=== PATIENT | male | born 1935 | race Caucasian/White ===

== ENCOUNTER 2022-03-07 09:58 | Outpatient (CLI) | payer MEDICARE, SELFPAY ==
--- NOTE | 2022-03-07 10:16 | US_ITS ---
WS: [id number] RENAL ULTRASOUND HISTORY: UNSPECIFIED HYDRONEPHROSIS BILATERAL COMPARISON: None available. TECHNIQUE: 2-D and color Doppler imaging of the kidney submitted. Right kidney: 10.5 cm x 5.2 cm x 5.1 cm. Normal echogenicity with no hydronephrosis or mass. Left kidney: 9.6 cm x 5.3 cm x 4.9 cm. Normal size RIGHT kidney. Cortical cyst from the lower pole measures 2.1 x 2.7 x 2.7 cm. No solid mas s. No obstruction. Aorta: Normal. Urinary Bladder: Partially distended bladder. US/US renal BI* [id number] IMPRESSION: 1. No solid renal mass or obstruction. 2. Simple cyst lower pole LEFT kidney measures 2.1 x 2.7 x 2.7 cm.
== END 2022-03-07 09:59 | disposition home or self-care (01) ==
PROVIDERS: PCP Family Medicine; Visit Provider Family Medicine
DX: N13.30 Unspecified hydronephrosis (principal); N28.1 Cyst of kidney, acquired
CPT/HCPCS: 76770

== ENCOUNTER 2023-04-25 23:55 | Emergency (ER) | payer MEDICARE, SELFPAY ==
[2023-04-25 23:57] VITALS: BP 141/96; PULSE 110; RESP 18; TEMP 36.7; O2SAT 97; BMI 23.8
--- NOTE | 2023-04-26 00:02 | ED_ITS ---
HPI - Arrhythmia/Palpitations General: Chief Complaint: Chest Pain Stated Complaint: PALPITATIONS Time Seen by Provider: 04/26/23 00:02 History of Present Illness: Mr. Villalpando is an 88-year-old gentleman presenting to the emergency department due to chest discomfort and palpitations. He notes substernal chest pain without significant radiation. He felt palpitations which were uncomfortable. Typically the patient has a low heart rate and is not in atrial fibrillation. Overall course of symptoms has been improved. No other specific changes in health, exacerbating, or alleviating factors identified. Onset (ago): hour(s) Duration: intermittent Arrhythmia history: atrial fibrillation Associated symptoms: Reports other Review of Systems General: Reports: 10 or more systems reviewed and unremarkable except in HPI and below PFSH ED PFSH: Medical History (Updated 05/08/23 @ 11:02 by Dario Dillard MD) No significant past medical history Surgical History (Updated 05/08/23 @ 11:02 by Dario Dillard MD) No significant past surgical history Physical Exam Const: COMMON NORMALS: alert GENERAL APPEARANCE: cooperative and well developed HENMT: COMMON NORMALS: normocephalic and atraumatic HEAD & SCALP: normocephalic and atraumatic Eye: COMMON NORMALS: conjunctivae normal CONJUNCTIVA: Yes conjunctivae normal SCLERA: sclerae normal Neck/C-Spine: COMMON NORMALS: supple GENERAL: Yes trachea midline Resp: COMMON NORMALS: normal respiratory effort EFFORT & INSPECTION: Yes able to speak in complete sentences Cardio: RATE: tachycardic RHYTHM: abnormal rhythm irregularly irregular GI: COMMON NORMALS: Soft to palpation PALPATION: Yes Soft to palpation and No Tenderness to palpation present (GI) Extremity: GENERAL: Yes normal exam except as noted and No edema Neuro: COMMON NORMALS: moves all extremities SENSORIUM/ORIENTATION: Yes alert and No Orientation impaired Psych: COMMON NORMALS: mental status grossly normal and Normal thought process present THOUGHT PROCESS: Normal thought process present Course Vital Signs: Vital signs: Vital Signs Temperature 98.0 F 04/25/23 23:57 Pulse Rate 47 L 04/26/23 04:00 Respiratory Rate 16 04/26/23 04:00 Blood Pressure 160/74 04/26/23 04:00 Pulse Oximetry 96 04/26/23 04:00 Oxygen Delivery Me thod Room Air 04/25/23 23:57 MDM - Arrhythmia/Palpitations Medical Decision Making 88-year-old gentleman with intermittent history of unclear arrhythmia presented to the emergency department due to chest discomfort and palpitations. Exam as above. Nontoxic. EKG demonstrates atrial fibrillation with rapid ventricular response. No STEMI. Labs with no leukocytosis, macrocytic anemia, thrombocytopenia of uncertain etiology. Metabolic panel with mildly elevated creatinine though no baseline comparison. Elevated 2-hour delta compared to prior and intermediate range of the likely from demand ischemia. No UTI Chest x-ray demonstrates abnormalities consistent with interstitial fibrosis. No pneumothorax. Regarding questionable infiltrate patient has not had any respiratory symptoms or pneumonialike symptoms. Potassium administered for optimization of electrolytes for arrhythmia prevention and metoprolol had been ordered however prior to this patient had spontaneous conversion. Repeat EKG demonstrates sinus bradycardia with normal axis and intervals, no STEMI. Patient likely had transient episode of atrial fibrillation with RVR which explain symptoms. I discussed disposition options. Patient prefers outpatient management. I will refer for follow-up and additional monitoring. Given bradycardia at baseline I do not feel that medication change at this time would be beneficial. The results of ED evaluation were discussed with the patient including pr escriptions and/or symptomatic cares (if applicable) including appropriate and responsible use, followup plan, and return precautions. The patient verbalized understanding and felt safe for discharge. Medical Records I reviewed the patient's medical records. Lab Data I reviewed the patient's lab results. 04/26/23 00:53 04/26/23 00:53 Radiology Impressions Chest X-Ray 04/26/23 00:03 IMPRESSION: Basal predominant subpleural reticulation compatible with pulmonary fibrosis. Asymmetric left basal opacities suspected to represent asymmetric pulmonary fibrosis although superimposed infectious/inflammatory process possible. Laboratory Results WBC 4.5 10^3/uL (4.0-10.0) 04/26/23 00:53 RBC 3.33 10^6/uL (4.1-5.3) L 04/26/23 00:53 Hgb 10.2 g/dL (11.7-16.6) L 04/26/23 00:53 Hct 32.9 % (42.0-52.0) L 04/26/23 00:53 MCV 98.8 fl (80-94) H 04/26/23 00:53 MCH 30.6 pg (28.0-34.0) 04/26/23 00:53 MCHC 31.0 g/dL (30.0-36.0) 04/26/23 00:53 RDW 13.2 % (12.1-15.1) 04/26/23 00:53 Plt Count 96 10^3/cmm (130-400) L 04/26/23 00:53 MPV 10.9 fL (7.4-10.4) H 04/26/23 00:53 Neut % (Auto) 56.6 % 04/26/23 00:53 Lymph % (Auto) 28.2 % 04/26/23 00:53 [place] % (Auto) 11.0 % 04/26/23 00:53 Eos % (Auto) 3.8 % 04/26/23 00:53 Baso % (Auto) 0.2 % 04/26/23 00:53 Neut # (Auto) 2.53 10^3/uL (1.8-7.7) 04/26/23 00:53 Lymph # (Auto) 1.3 10^3/uL (0.8-4.8) 04/26/23 00:53 [place] # (Auto) 0.5 10^3/uL (0.2-0.9) 04/26/23 00:53 Eos # (Auto) 0.2 10^3/uL (0.0-0.8) 04/26/23 00:53 Baso # (Auto) 0.0 10^3/uL (0.0-0.1) 04/26/23 00:53 Nucleated RBC % (auto) 0 % 04/26/23 00:53 Nucleated RBCs # 0.0 /100WBC 04/26/23 00:53 Sodium 141 mmol/L (136-145) 04/26/23 00:53 Potassium 3.6 mmol/L (3.5-5.1) 04/26/23 00:53 Chloride 108 mmol/L (98-107) H 04/26/23 00:53 Carbon Dioxide 24 mmol/L (22-29) 04/26/23 00:53 Anion Gap 12.6 (5-19) 04/26/23 00:53 BUN 29 mg/dL (8-23) H 04/26/23 00:53 Creatinine 1.5 mg/dL (0.7-1.2) H 04/26/23 00:53 GFR Calculation Not Reportable 04/26/23 00:53 Glucose 129 mg/dL (65-115) H 04/26/23 00:53 Calculated Osmolality 300 mOsm/kg (285-295) H 04/26/23 00:53 Lactic Acid 0.8 mmol/L (0.5-2.2) 04/26/23 00:53 Calcium 8.1 mg/dL (8.5-10.5) L 04/26/23 00:53 Magnesium 2.0 mg/dL (1.7-2.3) 04/26/23 00:53 Total Bilirubin 0.2 mg/dL (0.15-1.2) 04/26/23 00:53 AST 11 U/L (0-40) 04/26/23 00:53 ALT 7 U/L (0-41) 04/26/23 00:53 Alkaline Phosphatase 56 U/L (40-130) 04/26/23 00:53 Troponin T Baseline 26 ng/L (0-15) H 04/26/23 00:53 Troponin T 120 Minute 35.53 ng/L (0-15) H 04/26/23 02:52 Delta Troponin T 9.53 ABS# (0-10) 04/26/23 02:52 NT-Pro-B Natriuret Pep 1338 pg/mL (0-450) H 04/26/23 00:53 Total Protein 5.4 g/dL (6.6-8.7) L 04/26/23 00:53 Albumin 3.4 g/dL (3.5-5.2) L 04/26/23 00:53 Globulin 2.0 g/dL (1.3-4.6) 04/26/23 00:53 TSH 2.56 uIU/mL (0.27-4.20) 04/26/23 00:53 Urine Color Yellow (Yellow) 04/26/23 02:41 Urine Appearance Clear (CLEAR) 04/26/23 02:41 Urine pH 5 (5-7) 04/26/23 02:41 Ur Specific Bantam 1.020 (1.005-1.030) 04/26/23 02:41 Urine Protein Neg (Negative) 04/26/23 02:41 Urine Glucose (UA) Norm (Normal) 04/26/23 02:41 Urine Ketones Negative (Negative) 04/26/23 02:41 Urine Blood Neg (Negative) 04/26/23 02:41 Urine Nitrate Negative (Negative) 04/26/23 02:41 Urine Bilirubin Neg (Negative) 04/26/23 02:41 Urine Urobilinogen Neg mg/dL (Negative) 04/26/23 02:41 Ur Leukocyte Esterase Negative (Negative) 04/26/23 02:41 Discharge Plan Discharge Patient Disposition: Home Clinical Impression: Chest pain, Atrial fibrillation with RVR Condition: Stable Discharge Orders: Discharge ED (Routine); Ordered 04/26/23 Ordered By: Dario Dillard Other Ambulatory Orders: ECG holter monitor 7 Days (Routine) Timeframe: 1 Week Facility: [facility] - Location: Radiology Ordered By: Dario Dillard Referrals: Tamiko Paula MD [Primary Care Provider] - Discharge Diet: Usual diet Discharge Activity: Resume usual activity Patient Instructions: A-fib (Atrial Fibrillation) (ED), Chest Pain (ED) Activity Restrictions/Additional Instructions: Thank you for visiting the emergency department. You were seen and evaluated for chest pain and palpitations. The most likely cause of your symptoms is end arrhythmia called atrial fibrillation. This resolved on its own. As discussed you do require further outpatient management which you are electing to have in the outpatient setting. I will message case management for further follow-up. Please also follow-up with a primary care provider. Return for recurrent symptoms, chest pain, shortness of breath, fainting, or anything else that you are concerned about and feel needs emergency department evaluation. Coding Level of Care Code ED Stamps Or Coins Salesperson for Whitley Perez
--- NOTE | 2023-04-26 00:03 | XRR_ITS ---
PROCEDURE INFORMATION: Exam: XR Chest Exam date and time: 04/26/2023 12:09 AM Age: 88 years old Clinical indication: Other: Palpitations TECHNIQUE: Imaging protocol: Radiologic exam of the chest. Views: 1 view. COMPARISON: CR XR chest 1V [id number] 06/07/2018 10:26 PM FINDINGS: Lungs: Basilar predominant subpleural reticulation. Asymmetric left basal opacities. Pleural spaces: No pleural effusion. No pneumothorax. Heart/Mediastinum: Stable cardiac silhouette. Bones/joints: No acute osseous abnormality. XR/XR chest 1V portable [id number] IMPRESSION: Basal predominant subpleural reticulation compatible with pulmonary fibrosis. Asymmetric left basal opacities suspected to represent asymmetric pulmonary fibrosis although superimposed infectious/inflammatory process possible.
--- NOTE | 2023-04-26 00:04 | ECG_ITS ---
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 Measurements Intervals [place] Rate: 131 P: 223 MA: 102 QRS: 35 QRSD: 96 T: 30 QT: 307 QTc: 454 Interpretive Statements SINUS TACHYCARDIA WITH SHORT MA INTERVAL WITH OCCASIONAL ECTOPIC PREMATURE COMPLEXES NONSPECIFIC ST & T-WAVE ABNORMALITY Compared to ECG 06/07/2018 22:01:26 Short MA interval now present T-wave abnormality now present Sinus rhythm no longer present Electronically Signed On 04-26-2023 12:16:04 CDT by Mynor Ying M.D. [email or web address] general [email or web address] Modulation Technologiesselect medical [email or web address].[email or web address]/store/[id number]
[2023-04-26 01:00] VITALS: BP 123/88; PULSE 132; RESP 18; O2SAT 95
[2023-04-26 01:05] LABS: Basophils % 0.2 %; Eosinophils # 0.2 10^3/uL (0.0-0.8); Eosinophils % 3.8 %; Hematocrit 32.9 % (42.0-52.0); Hemoglobin 10.2 g/dL (11.7-16.6); Lymphocytes # 1.3 10^3/uL (0.8-4.8); Lymphocytes % 28.2 %; Mean Corpuscular Hemoglobin 30.6 pg (28.0-34.0); Mean Corpuscular Volume 98.8 fl (80-94); Mean Platelet Volume 10.9 fL (7.4-10.4); Monocytes # 0.5 10^3/uL (0.2-0.9); Neutrophils # 2.53 10^3/uL (1.8-7.7); Neutrophils % 56.6 %; Nucleated Red Blood Cells % 0 %; Platelet Count 96 10^3/cmm (130-400); Red Blood Count 3.33 10^6/uL (4.1-5.3); Red Cell Distribution Width 13.2 % (12.1-15.1); White Blood Count 4.5 10^3/uL (4.0-10.0)
[2023-04-26 01:24] LABS: Lactic Sepsis W/Reflex 0.8 mmol/L (0.5-2.2)
[2023-04-26 01:27] LABS: Troponin(5th) Baseline 26 ng/L (0-15)
[2023-04-26 01:30] VITALS: BP 125/82; PULSE 105; O2SAT 95
[2023-04-26 01:37] LABS: Alanine Aminotransferase 7 U/L (0-41); Albumin Level 3.4 g/dL (3.5-5.2); Alkaline Phosphatase 56 U/L (40-130); Anion Gap 12.6 (5-19); Aspartate Amino Transferase 11 U/L (0-40); Blood Urea Nitrogen 29 mg/dL (8-23); Calcium 8.1 mg/dL (8.5-10.5); Carbon Dioxide 24 mmol/L (22-29); Chloride 108 mmol/L (98-107); Glucose 129 mg/dL (65-115); NT Pro B Type Natriuretic Pept 1338 pg/mL (0-450); Osmolality Calculated 300 mOsm/kg (285-295); Potassium 3.6 mmol/L (3.5-5.1); Sodium 141 mmol/L (136-145); Thyroid Stimulating Hormone 2.56 uIU/mL (0.27-4.20); Total Bilirubin 0.2 mg/dL (0.15-1.2); Total Protein 5.4 g/dL (6.6-8.7)
[2023-04-26] MEDS: potassium chloride oral liq 20 mEq/15 mL UDC 40 MEQ PO (01:57)
--- NOTE | 2023-04-26 01:59 | ECG_ITS ---
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 Measurements Intervals [place] Rate: 53 P: 45 IA: 165 QRS: 25 QRSD: 90 T: 57 QT: 444 QTc: 420 Interpretive Statements SINUS BRADYCARDIA Compared to ECG 04/26/2023 00:08:41 Sinus tachycardia no longer present Short IA interval no longer present T-wave abnormality no longer present Electronically Signed On 04-26-2023 12:22:06 CDT by Mynor Ying M.D. [id number]
[2023-04-26 02:03] VITALS: BP 150/68; PULSE 50; RESP 12; O2SAT 97
[2023-04-26 02:49] LABS: Add Urine Microscopic? NO; Bilirubin Urine Neg (Negative); Blood Urine Neg (Negative); Charge for UA Resulting for Rev; Glucose Urine UA Norm (Normal); Ketones Urine Negative (Negative); Leukocyte Esterase Urine Negative (Negative); Nitrate Urine Negative (Negative); Protein Urine Neg (Negative); Urine Appearance Clear (CLEAR); Urine Color Yellow (Yellow); Urobilinogen Urine Neg (Negative); pH Urine 5 (5-7)
[2023-04-26 03:25] LABS: Troponin 5 2HR 35.53 ng/L (0-15)
[2023-04-26 03:44] LABS: Troponin 5 2HR Delta 9.53 ABS# (0-10)
[2023-04-26 04:00] VITALS: BP 160/74; PULSE 47; RESP 16; O2SAT 96
--- NOTE | 2023-04-27 08:12 | DCPLANNER ---
Addendum entered by Rika Palmer 06/07/23 12:00: immigration manager received the following message from centralized scheduling regarding follow up testing: Edmund Villalpando 1935 [place] Echo I have tried 3 times to contact this patient and never got ahold of him. Can you reach out to this patient and ask him to contact scheduling to get this scheduled please? Our number is [phone]. Thank you, Karla Lopez Centralized Scheduling immigration manager unable to reach patient at this time Original Note: immigration manager had message to schedule an outpatient echo cardiogram for patient. immigration manager faxed signed order to centralized scheduling, who will call patient with appointment information.
== END 2023-04-26 04:11 | disposition home or self-care (01) ==
PROVIDERS: Emergency Provider Emergency Medicine; PCP Family Medicine
DX: I48.91 Unspecified atrial fibrillation (principal); R00.1 Bradycardia, unspecified; R77.8 Other specified abnormalities of plasma proteins; R79.89 Other specified abnormal findings of blood chemistry; D69.6 Thrombocytopenia, unspecified; D53.9 Nutritional anemia, unspecified
CPT/HCPCS: 36415; 71045; 80053; 81003; 83605; 83735; 83880; 84443; 84484; 85025; 93005; 99285

== ENCOUNTER 2023-05-09 04:53 | Observation (INO) | payer MEDICARE, SELFPAY ==
[2023-05-09] VITALS (18 sets, daily range): BP systolic 122–197; BP diastolic 54–86; PULSE 45–70; RESP 14–22; TEMP 36.4–37.4; O2SAT 94–98
--- NOTE | 2023-05-09 05:05 | CTR_ITS ---
PROCEDURE INFORMATION: Exam: CT Head Without Contrast Exam date and time: 05/09/2023 5:14 AM Age: 88 years old Clinical indication: Weakness, extremity; Bilateral; Additional info: Paresthesia TECHNIQUE: Imaging protocol: Computed tomography of the head without contrast. Radiation optimization: All CT scans at this facility use at least one of these dose optimization techniques: automated exposure control; mA and/or kV adjustment per patient size (includes targeted exams where dose is matched to clinical indication); or iterative reconstruction. REPORTING DATA: Count of CT and Cardiac NM exams in prior 12 months: This patient has received 0 known CTs and 0 known cardiac nuclear medicine studies in the 12 months prior to the current study. COMPARISON: CT head wo con* [id number] 06/07/2018 10:23 PM RADIATION DOSE METRICS: Total DLP (mGy-cm): 1094.38 FINDINGS: Brain: There is moderate cerebral atrophy. There is mild diffuse heterogeneity of the white matter attenuation, consistent with chronic white matter ischemic changes. Negative for intracranial hemorrhage. Negative for mass effect on the brain. Negative for midline shift of the brain. Pre-existing focal left posterior cerebral hemisphere gliosis and mild encephalomalacia stable from comparison. Cerebral ventricles: No ventriculomegaly. Paranasal sinuses: Visualized sinuses are unremarkable. No fluid levels. Mastoid air cells: Visualized mastoid air cells are well aerated. Bones/joints: Unremarkable. No acute fracture. Soft tissues: Unremarkable. CT/CT head wo con* [id number] IMPRESSION: 1. Negative for acute intracranial pathology. 2. No significant change from comparison.
--- NOTE | 2023-05-09 05:05 | XRR_ITS ---
PROCEDURE INFORMATION: Exam: XR Chest Exam date and time: 05/09/2023 5:18 AM Age: 88 years old Clinical indication: Pain; Chest pressure; Additional info: Cp TECHNIQUE: Imaging protocol: Radiologic exam of the chest. Views: 1 view. COMPARISON: CR (CHEST, ) 04/26/2023 12:09 AM FINDINGS: Lungs: Unremarkable. No consolidation. Pleural spaces: Unremarkable. No pleural effusion. No pneumothorax. Heart/Mediastinum: Unremarkable. No cardiomegaly. Bones/joints: Focal posterior right rib 6 deformity unchanged from prior. Proximal right humerus surgical anchors. XR/XR chest 1V portable [id number] IMPRESSION: Negative for acute pathology.
--- NOTE | 2023-05-09 05:07 | ED_ITS ---
HPI - General Adult General: Chief complaint: Weakness Stated complaint: NUMBNESS Time Seen by Provider: 05/09/23 04:53 Source: patient and EMS Mode of arrival: EMS Limitations: altered mental status History of Present Illness: 88-year-old male here with EMS states they were called as he is having numbness to his lower extremities and into his chest he is concerned about some jaw pain as well he states that in route he was bradycardic they gave him atropine he is also had hypertension patient has dementia is able answer some my questions but is confused this is supposedly his baseline. Associated symptoms: Deny chest pain, dyspnea, headache(s), nausea, rash or vomiting Review of Systems Const: Denies: fever(s) or chills Eyes: Denies: blurry vision ENMT: Denies: throat pain or dental pain Card: Denies: chest pain Resp: Denies: dyspnea GI: Denies: abdominal pain, nausea or vomiting Musc: Denies: neck pain or back pain Skin/Breast: Denies: rash Neuro: Reports: numbness in extremities; Denies: headache(s) [facility] ED PFSH: Medical History BPH (benign prostatic hyperplasia) CVA (cerebral vascular accident) Dementia Depression with anxiety Hyperlipidemia Hypertension No significant past medical history Surgical History (Updated 05/09/23 @ 07:42 by Navin Gurrola MD) History of cholecystectomy No significant past surgical history Family History (Updated 05/09/23 @ 07:42 by Navin Gurrola MD) Other Diabetes Social History Smoking and tobacco status: former smoker Alcohol intake: never Physical Exam Const: COMMON NORMALS: alert; negative for patient oriented x3 ORIENTATION/CONSCIOUSNESS: Yes oriented to person and Yes oriented to place; not oriented to time HENMT: COMMON NORMALS: normocephalic and atraumatic HEAD & SCALP: normocephalic and atraumatic Eye: COMMON NORMALS: Equal, round and reactive pupils present and EOMs intact bilaterally PUPIL: Yes Equal, round and reactive pupils present Neck/C-Spine: COMMON NORMALS: full ROM and supple Chest: COMMONS NORMALS: normal inspection of the chest and normal palpation of entire chest wall Resp: COMMON NORMALS: normal respiratory effort, No retractions, No use of accessory muscles and clear to auscultation bilaterally AUSCULTATION: clear to auscultation bilaterally Cardio: COMMON NORMALS: regular rhythm and No murmurs present (Cardio) RATE: bradycardic RHYTHM: regular rhythm GI: COMMON NORMALS: Normal to inspection, nondistended, normoactive bowel sounds present, Soft to palpation, non-tender and no masses PALPATION: Yes Soft to palpation Extremity: COMMON NORMALS: normal to inspection and full ROM Neuro: COMMON NORMALS: moves all extremities and no focal motor deficits; negative for patient oriented x3 SENSORIUM/ORIENTATION: Yes alert, Yes oriented to person, Yes oriented to place and No oriented to time Psych: COMMON NORMALS: mental status grossly normal, Normal thought process present and cooperative THOUGHT PROCESS: Normal thought process present Skin: COMMON NORMALS: no rashes or lesions noted and no wounds GENERAL SKIN EXAM: no rashes or lesions noted Course Vital Signs: Vital signs: Vital Signs Temperature 98.6 F 05/09/23 15:47 Pulse Rate 59 L 05/09/23 15:47 Respiratory Rate 19 H 05/09/23 15:47 Blood Pressure 146/65 05/09/23 15:47 Pulse Oximetry 96 05/09/23 15:47 Oxygen Delivery Me thod Room Air 05/09/23 15:47 MDM - General Adult Medical Decision Making Patient presents here with hypertension he is also supposedly bradycardic in route by EMS and stated his heart rates in the 30s they gave him atropine they did not perform an EKG and have no rhythm strips he has been slightly br adycardic here in the 50s I did speak to the hospitalist will admit for observation. Medical Records I reviewed the patient's medical records. Lab Data I reviewed the patient's lab results. 05/09/23 05:10 05/09/23 05:10 Radiology Impressions Chest X-Ray 05/09/23 05:05 IMPRESSION: Negative for acute pathology. Head CT 05/09/23 05:05 IMPRESSION: 1. Negative for acute intracranial pathology. 2. No significant change from comparison. Laboratory Results WBC 4.3 10^3/uL (4.0-10.0) 05/09/23 05:10 RBC 3.15 10^6/uL (4.1-5.3) L 05/09/23 05:10 Hgb 9.7 g/dL (11.7-16.6) L 05/09/23 05:10 Hct 30.5 % (42.0-52.0) L 05/09/23 05:10 MCV 96.8 fl (80-94) H 05/09/23 05:10 MCH 30.8 pg (28.0-34.0) 05/09/23 05:10 MCHC 31.8 g/dL (30.0-36.0) 05/09/23 05:10 RDW 13.2 % (12.1-15.1) 05/09/23 05:10 Plt Count 100 10^3/cmm (130-400) L 05/09/23 05:10 MPV 11.0 fL (7.4-10.4) H 05/09/23 05:10 Neut % (Auto) 57.1 % 05/09/23 05:10 Lymph % (Auto) 28.0 % 05/09/23 05:10 [place] % (Auto) 10.6 % 05/09/23 05:10 Eos % (Auto) 3.3 % 05/09/23 05:10 Baso % (Auto) 0.5 % 05/09/23 05:10 Neut # (Auto) 2.43 10^3/uL (1.8-7.7) 05/09/23 05:10 Lymph # (Auto) 1.2 10^3/uL (0.8-4.8) 05/09/23 05:10 [place] # (Auto) 0.5 10^3/uL (0.2-0.9) 05/09/23 05:10 Eos # (Auto) 0.1 10^3/uL (0.0-0.8) 05/09/23 05:10 Baso # (Auto) 0.0 10^3/uL (0.0-0.1) 05/09/23 05:10 Nucleated RBC % (auto) 0 % 05/09/23 05:10 Nucleated RBCs # 0.0 /100WBC 05/09/23 05:10 Sodium 141 mmol/L (136-145) 05/09/23 05:10 Potassium 3.9 mmol/L (3.5-5.1) 05/09/23 05:10 Chloride 108 mmol/L (98-107) H 05/09/23 05:10 Carbon Dioxide 26 mmol/L (22-29) 05/09/23 05:10 Anion Gap 10.9 (5-19) 05/09/23 05:10 BUN 26 mg/dL (8-23) H 05/09/23 05:10 Creatinine 1.6 mg/dL (0.7-1.2) H 05/09/23 05:10 GFR Calculation Not Reportable 05/09/23 05:10 Glucose 90 mg/dL (65-115) 05/09/23 05:10 POC Glucose 103 mg/dL (70-110) 05/09/23 05:01 Calculated Osmolality 296 mOsm/kg (285-295) H 05/09/23 05:10 Calcium 8.4 mg/dL (8.5-10.5) L 05/09/23 05:10 Magnesium 2.0 mg/dL (1.7-2.3) 05/09/23 07:20 Total Bilirubin 0.5 mg/dL (0.15-1.2) 05/09/23 05:10 AST 15 U/L (0-40) 05/09/23 05:10 ALT 11 U/L (0-41) 05/09/23 05:10 Alkaline Phosphatase 59 U/L (40-130) 05/09/23 05:10 Troponin T Baseline 27 ng/L (0-15) H 05/09/23 05:10 Troponin T 120 Minute 25.55 ng/L (0-15) H 05/09/23 07:20 Delta Troponin T -1.45 ABS# (0-10) L 05/09/23 07:20 Total Protein 5.4 g/dL (6.6-8.7) L 05/09/23 05:10 Albumin 3.7 g/dL (3.5-5.2) 05/09/23 05:10 Globulin 1.7 g/dL (1.3-4.6) 05/09/23 05:10 EKG Data EKG 1: I personally reviewed and interpreted this EKG as follows: EKG interpretation date: 05/09/23 EKG interpretation time: 04:59 Interpretation: sinus priti hr [address] or t wave abnormalities qrs 93 qtc 446 Computer generated interpretation: Chest X-Ray 05/09/23 05:05 IMPRESSION: Negative for acute pathology. Head CT 05/09/23 05:05 IMPRESSION: 1. Negative for acute intracranial pathology. 2. No significant change from comparison. Discharge Plan Discharge Patient Disposition: Admitted As Inpatient Admit Provider: Navin Gurrola Clinical Impression: Bradycardia, Hypertension Condition: Stable Coding Level of Care Code ED Principal Technical Architect for Whitley Perez
[2023-05-09 05:15] LABS: Glucose Point of Care 103 mg/dL (70-110)
[2023-05-09 05:19] LABS: Basophils % 0.5 %; Eosinophils # 0.1 10^3/uL (0.0-0.8); Eosinophils % 3.3 %; Hematocrit 30.5 % (42.0-52.0); Hemoglobin 9.7 g/dL (11.7-16.6); Lymphocytes # 1.2 10^3/uL (0.8-4.8); Mean Corpuscular HGB Conc 31.8 g/dL (30.0-36.0); Mean Corpuscular Hemoglobin 30.8 pg (28.0-34.0); Mean Corpuscular Volume 96.8 fl (80-94); Monocytes # 0.5 10^3/uL (0.2-0.9); Monocytes % 10.6 %; Neutrophils # 2.43 10^3/uL (1.8-7.7); Neutrophils % 57.1 %; Nucleated Red Blood Cells % 0 %; Platelet Count 100 10^3/cmm (130-400); Red Blood Count 3.15 10^6/uL (4.1-5.3); Red Cell Distribution Width 13.2 % (12.1-15.1); White Blood Count 4.3 10^3/uL (4.0-10.0)
[2023-05-09] MEDS: hyDRALAzine 20 mg/mL INJ 1 mL 10 MG IVP (05:29)
[2023-05-09 05:36] LABS: Troponin(5th) Baseline 27 ng/L (0-15)
[2023-05-09 05:39] LABS: Alanine Aminotransferase 11 U/L (0-41); Albumin Level 3.7 g/dL (3.5-5.2); Alkaline Phosphatase 59 U/L (40-130); Anion Gap 10.9 (5-19); Aspartate Amino Transferase 15 U/L (0-40); Blood Urea Nitrogen 26 mg/dL (8-23); Calcium 8.4 mg/dL (8.5-10.5); Carbon Dioxide 26 mmol/L (22-29); Chloride 108 mmol/L (98-107); Globulin 1.7 g/dL (1.3-4.6); Glucose 90 mg/dL (65-115); Osmolality Calculated 296 mOsm/kg (285-295); Potassium 3.9 mmol/L (3.5-5.1); Sodium 141 mmol/L (136-145); Total Bilirubin 0.5 mg/dL (0.15-1.2); Total Protein 5.4 g/dL (6.6-8.7)
--- NOTE | 2023-05-09 06:23 | PC.NURSE ---
Attempted to call CSU for report @ [phone] and [phone], no answer on floor.
--- NOTE | 2023-05-09 07:05 | ECG_ITS ---
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 Measurements Intervals [place] Rate: 57 P: 53 IN: 161 QRS: 46 QRSD: 93 T: 57 QT: 451 QTc: 442 Interpretive Statements SINUS BRADYCARDIA Compared to ECG 04/26/2023 01:59:41 No significant changes Electronically Signed On 05-09-2023 21:20:40 CDT by Kyle Sheldon M.D. [email or web address] Medical [email or web address] memorial hospitalOmbuShop, [employer] Online/store/[id number]
--- NOTE | 2023-05-09 07:38 | PM.HP ---
Providers/Chief Complaint Admitting Physician: Navin Gurrola MD Primary Care Provider: Tamiko Paula MD Chief Complaint: NUMBNESS History of Present Illness Edmund Villalpando is a 88 year old male who presents to the hospital with his with concerns of numbness over his face on both sides, legs, and arms. No history of injury. No focal weakness. Apparently when EMS picked him up he was bradycardic, reportedly into the 30s and got atropine. Unfortunately they did not do an EKG. He was recently in the emergency department, on April 26 with palpitations and found to have a supraventricular rhythm around 130, which appeared to be atrial fibrillation. He converted spontaneously, and it was recommended he follow-up with his primary care provider. He is not on any beta-collette. He has previously seen cardiology at [facility], referred from his primary, for concerns he might need a pacemaker. He intermittently has chest discomfort, work-up in the past is unclear. It is not exertional. No vomiting, recent illness, cough lately. He has trouble relating his symptoms, and according to his he has at least moderate dementia. She also relates his blood pressure has been higher than usual lately. Review of Systems General: Reports: 10 or more systems reviewed and unremarkable except in HPI and below Card: Reports: chest pain and palpitations Resp: Denies: dyspnea, productive cough or non-productive cough GI: Denies: abdominal pain, nausea, vomiting, hematochezia or melena Medications/Allergies Home Medications Medication Instructions Recorded Confirmed Last Taken Type aspirin 81 mg tablet 81 mg PO DAILY 05/09/23 05/09/23 05/08/23 History atorvastatin 20 mg tablet 20 mg PO DAILY 05/09/23 05/09/23 05/08/23 History baclofen 10 mg tablet 10 mg PO DIRECTED 05/09/23 05/09/23 05/08/23 History citalopram 10 mg tablet 10 mg PO DAILY 05/09/23 05/09/23 Unknown History coenzyme Q10 100 mg capsule (Co 100 mg PO DAILY 05/09/23 05/09/23 05/08/23 History Q-10) finasteride 5 mg tablet 5 mg PO DAILY 05/09/23 05/09/23 05/08/23 History hydralazine 100 mg tablet 100 mg PO TID 05/09/23 05/09/2323 History losartan 100 mg tablet 100 mg PO DAILY 05/09/23 05/09/23 05/08/23 History Allergies Allergy/AdvReac Type Severity Reaction Status Date / Time No Known Allergies Allergy Verified 05/09/23 05:18 PFSH Acute PFSH: Medical History (Updated 05/09/23 @ 07:42 by Navin Gurrola MD) BPH (benign prostatic hyperplasia) CVA (cerebral vascular accident) Dementia Depression with anxiety Hyperlipidemia Hypertension No significant past medical history Surgical History (Updated 05/09/23 @ 07:42 by Navin Gurrola MD) History of cholecystectomy No significant past surgical history Family History (Updated 05/09/23 @ 07:42 by Navin Gurrola MD) Other Diabetes Social History (Updated 05/09/23 @ 07:42 by Navin Gurrola MD) Smoking and tobacco status: former smoker Alcohol intake: never Vitals/I&O/Wt Last Vital Signs Temp 98.1 F 05/09/23 05:14 Pulse 52 L 05/09/23 06:42 Resp 14 05/09/23 06:42 BP 182/70 05/09/23 06:42 Pulse Ox 98 05/09/23 06:42 O2 Del Method Room Air 05/09/23 05:48 Weight last 48 hrs Weight 74.843 kg Physical Exam Narrative: General exam is a soft-spoken male, who appears confused at times, with a monitor showing frequent PVCs. HEENT: Atraumatic and normocephalic. Oropharynx clear Neck is supple no lymphadenopathy thyromegaly Cardiovascular regular rate and rhythm, frequent premature beats, 2 or 6 systolic murmur Lungs clear no wheezing or crackles Abdomen is soft with positive bowel sounds. No obvious organomegaly. exams deferred Extremities no sinus clubbing edema, cap refill brisk Skin no rash, scattered actinic keratoses Neuro no focal deficits Data 05/09/23 05:10 05/09/23 05:10 Other Labs: Liver function tests are normal. Troponin is 27 with repeats pending Albumin, calcium normal Magnesium I have ordered Recent TSH is normal Chest x-ray which I reviewed old arm surgery. No acute infiltrate Head CT no acute changes EKG which I reviewed demonstrated sinus bradycardia with a rate of around 55, normal axis, no acute changes. EKG on April 26 is a narrow complex tachycardia irregular without P waves consistent with atrial fibrillation. Rate around then was 130. A&P Assessment and plan (1) Bradycardia: Patient presents to the emergency department with history of some numbness all over. I cannot necessarily relate this symptomatology to his heart rhythm. He has underlying dementia making it difficult for him to relate his symptoms. He apparently had bradycardia in the 30s in the field, requiring atropine. No EKG was obtained. TSH has been checked, and electrolytes checked recently and they were normal. I am repeating a magnesium level. Check echocardiogram Telemetry Request records from his [facility] physicians. It appears he has been considered for pacemaker in the past. They may already know what his significant rhythm disturbances have been. Can consider anticoagulation after more is known about his past history. Could consider nuclear stress testing if this has not been done in the past secondary to his vague atypical chest discomfort. (2) Hypertension: Continue hydralazine, losartan Continue to monitor blood pressure, adjust as needed. Not a candidate for beta-collette secondary to bradycardia Plan Chronic kidney disease. I believe he is at his baseline. Dementia, complicating this illness Anemia and thrombocytopenia. Unfortunately not a significant amount of old lab is available. Hopefully this has been evaluated in the past. Requesting records. Multiple other medical problems as outlined in past medical history Allow natural Heparin for DVT prophylaxis currently. Attestations Medical Necessity Statement*: Will require less than 2 midnight stay for evaluation of bradycardia, palpitations, chest discomfort. Diagnoses Bradycardia R00.1 Hypertension I10 Time Spent (min) 47
--- NOTE | 2023-05-09 07:43 | USCV_ITS ---
Edmund Villalpando Age: 88 Gender: M : 1935 Exam Date: 05/09/2023 08:19 Ordering Phys: Navin Gurrola MD Technologist: CT [place] [facility] [place]: arrhythmia BP: 170 / 90 HR: 45 Rhythm: Sinus Technical Quality: Adequate MEASUREMENTS (Male / Female) Normal Values 2D ECHO LV Diastolic Diameter PLAX 5.4 cm 4.2 - 5.9 / 3.9 - 5.3 cm LV Systolic Diameter PLAX 3.0 cm IVS Diastolic Thickness 1.1 cm 0.6 - 1.0 / 0.6 - 0.9 cm IVS Systolic Thickness 1.4 cm LVPW Diastolic Thickness 0.9 cm 0.6 - 1.0 / 0.6 - 0.9 cm LVPW Systolic Thickness 1.5 cm LVOT Diameter 2.2 cm LV Ejection Fraction 2D Teich 75.5 % LV Ejection Fraction MOD 2C 49.1 % LV Ejection Fraction 2C AL 48.8 % LA Diameter 4.4 cm Aorta at Sinotubular Diameter 2.9 cm M-MODE Aortic Annulus Diameter 3.5 cm LA Ao Ratio MM 1.4 MV E Point Septal Separation 0.6 cm DOPPLER AV Peak Velocity 109.0 cm/s LVOT Peak Velocity 90.0 cm/s AV Area Cont Eq vti 3.2 cm squared AV Area Cont Eq pk 3.2 cm squared MV Area PHT 3.4 cm squared Mitral E to A Ratio 1.4 MV E' Velocity 43.0 cm/s Mitral E to MV E' Ratio 9.8 Mitral E to LV E' Lateral Ratio 7.9 Mitral E to LV E' Septal Ratio 13.1 TR Peak Velocity 226.0 cm/s TR Peak Gradient 20.4 mmHg TV Peak E Velocity 78.0 cm/s Right Atrial Pressure 3.0 mmHg Pulmonary Artery Systolic Pressu 23.4 mmHg FINDINGS Left Ventricle Normal left ventricular size, systolic function and wall thickness, with no regional wall motion abnormalities. Left ventricular ejection fraction is estimated at 60 %. Grade II diastolic dysfunction, moderately elevated filling pressures. Right Ventricle Normal right ventricular size and systolic function. Right ventricular systolic pressure 23.4 mmHg. Right Atrium Normal right atrial size. Left Atrium Moderately increased left atrial size. Mitral Valve Mild mitral annular calcification. Mildly thickened mitral valve. No mitral valve stenosis. Mild mitral valve regurgitation. Aortic Valve Structurally normal trileaflet aortic valve. No aortic valve stenosis. Mild aortic valve regurgitation. Tricuspid Valve Structurally normal tricuspid valve. No tricuspid valve stenosis. Mild tricuspid valve regurgitation. Pulmonic Valve Structurally normal pulmonic valve. No pulmonary valve stenosis. Moderate pulmonary valve regurgitation. Pericardium No pericardial effusion. Aorta Normal size aortic root and proximal ascending aorta. IVC Inferior vena cava not visualized. CONCLUSIONS 1. Normal left ventricular size, systolic function and wall thickness, with no regional wall motion abnormalities. Left ventricular ejection fraction is estimated at 60 %. Grade II diastolic dysfunction, moderately elevated filling pressures. 2. Mild aortic valve regurgitation. 3. Mild mitral and tricuspid valve regurgitation. 4. Moderate pulmonary valve regurgitation. 5. No prior similar studies to compare. Deidra Burnette MD (Electronically Signed) Final Date: 09 May 2023 17:26 S
[2023-05-09 07:53] LABS: Troponin 5 2HR 25.55 ng/L (0-15)
[2023-05-09 07:55] LABS: Troponin 5 2HR Delta -1.45 ABS# (0-10)
[2023-05-09] MEDS: citalopram 20 mg Tablet 10 MG PO (09:40)
[2023-05-09] MEDS: aspirin 81 mg EC Tablet PO (09:40)
[2023-05-09] MEDS: finasteride 5 mg Tablet PO (09:40)
[2023-05-09] MEDS: losartan 50 mg Tablet 100 MG PO (09:41)
[2023-05-09] MEDS: hyDRALAzine 50 mg Tablet 100 MG PO ×3 (09:41→20:19)
[2023-05-09] MEDS: atorvastatin 40 mg Tablet 20 MG PO (09:42)
[2023-05-09] MEDS: heparin 5,000 unit/mL INJ 1 mL 5000 UNIT SUBCUT ×2 (09:42→20:19)
[2023-05-09] MEDS: tamsulosin 0.4 mg Capsule PO (10:06)
[2023-05-09 10:12] LABS: Add Urine Microscopic? NO; Charge for UA Resulting for Rev
[2023-05-09 10:35] LABS: Bilirubin Urine Neg (Negative); Blood Urine Neg (Negative); Glucose Urine UA Norm (Normal); Ketones Urine Negative (Negative); Leukocyte Esterase Urine Negative (Negative); Nitrate Urine Negative (Negative); Protein Urine Neg (Negative); Specific Gravity, Urine 1.015 (1.005-1.030); Urine Appearance Clear (CLEAR); Urine Color Yellow (Yellow); Urobilinogen Urine Norm (Negative); pH Urine 5 (5-7)
[2023-05-09 11:55] LABS: Troponin 5 6HR 25.76 ng/L (0-15)
[2023-05-09 12:02] LABS: Troponin 5 6HR Delta -1.24 ng/L (0-12)
[2023-05-10] VITALS (7 sets, daily range): BP systolic 128–153; BP diastolic 59–71; PULSE 48–60; RESP 16–21; TEMP 36.4–37.2; O2SAT 94–98
[2023-05-10 05:07] LABS: Basophils % 0.1 %; Eosinophils # 0.1 10^3/uL (0.0-0.8); Eosinophils % 1.5 %; Hematocrit 31.8 % (42.0-52.0); Hemoglobin 9.8 g/dL (11.7-16.6); Lymphocytes # 1.3 10^3/uL (0.8-4.8); Lymphocytes % 18.1 %; Mean Corpuscular HGB Conc 30.8 g/dL (30.0-36.0); Mean Corpuscular Hemoglobin 30.4 pg (28.0-34.0); Mean Corpuscular Volume 98.8 fl (80-94); Mean Platelet Volume 11.6 fL (7.4-10.4); Monocytes # 0.8 10^3/uL (0.2-0.9); Monocytes % 10.9 %; Neutrophils # 4.99 10^3/uL (1.8-7.7); Nucleated Red Blood Cells % 0 %; Platelet Count 97 10^3/cmm (130-400); Red Blood Count 3.22 10^6/uL (4.1-5.3); Red Cell Distribution Width 13.1 % (12.1-15.1); White Blood Count 7.2 10^3/uL (4.0-10.0)
[2023-05-10 05:37] LABS: Anion Gap 13.4 (5-19); Blood Urea Nitrogen 21 mg/dL (8-23); Calcium 8.1 mg/dL (8.5-10.5); Carbon Dioxide 24 mmol/L (22-29); Chloride 105 mmol/L (98-107); Glucose 95 mg/dL (65-115); Magnesium 1.9 mg/dL (1.7-2.3); Osmolality Calculated 289 mOsm/kg (285-295); Potassium 4.4 mmol/L (3.5-5.1); Sodium 138 mmol/L (136-145)
[2023-05-10] MEDS: tamsulosin 0.4 mg Capsule PO (08:30)
[2023-05-10] MEDS: finasteride 5 mg Tablet PO (08:30)
[2023-05-10] MEDS: heparin 5,000 unit/mL INJ 1 mL 5000 UNIT SUBCUT ×2 (08:31→20:37)
[2023-05-10] MEDS: atorvastatin 40 mg Tablet 20 MG PO (08:31)
[2023-05-10] MEDS: hyDRALAzine 50 mg Tablet 100 MG PO ×3 (08:31→20:37)
[2023-05-10] MEDS: losartan 50 mg Tablet 100 MG PO (08:32)
[2023-05-10] MEDS: citalopram 20 mg Tablet 10 MG PO (08:32)
[2023-05-10] MEDS: aspirin 81 mg EC Tablet PO (08:32)
--- NOTE | 2023-05-10 09:56 | PC.CHAP ---
Pastoral Care Encounter/Spiritual Assessment Type of Contact [] Declined viscose cellar worker visit [] Patient/Family/Request visit [] Outpatient visit [] Follow-up visit [] Physician referral [] Code/Alert [x] Routine visit [] Staff referral [] Actively dying [] Patient sleeping [] Family support [] [] Out of room [] Palliative care [] [x] Receiving care in room [] Pre-surgical visit [] Trauma [] Long length of stay [] ICU visit [] Other: Relational/Emotional Strength [X] Patient feels connected with others/family/visitors/staff [] Distress [] Loneliness/isolation [] Abandonment Spirituality of Patient [x] Person of Jennifer [] Attends Quaker of their Jennifer [x] Believes in Prayer [] Reads Bible or Hoahaoism materials [] There are Spiritual issues to be addressed [employer] Interventions [x] Prayer [x] Active listening [x] Non-anxious presence [x] Spiritual/emotional support [] Crisis/trauma care [x] Spiritual counseling [] Bereavement support [] Provided bereavement packet [] Provided Bible/devotional materials [] Provided toy/stuffed animal, coloring book to patient or family member [] Provided Communion [] Anointing/[place] [] Salvation [x] Completed spiritual assessment [] Other: x Impact on Illness or Injury [] Angry [] Fearful [] Anxious [] Often cries [] Exhaustion [] Unable to work [] Unable to attend tenriism [] Unable to walk/stand [] Unable to read [] Unable to drive [] Unable to eat/drink [] Unable to sleep [] Unable to be with family [] Patient intubated [] Other: Summary heart not sure about what needs to be done has a good attitude well go home Time spent with patient 10 mins
--- NOTE | 2023-05-10 14:31 | PC.NURSE ---
Sullivan cath d/c'd for trial to see if the pt will be able to void and empty bladder. Pt and informed that if he is unable to void within 8 hours that we will have to reinsert a sullivan cath and he will go home with it and will have a urology consult as well.
--- NOTE | 2023-05-10 15:41 | PM.PN ---
Subjective Subjective: Patient was seen and examined this morning, continued to be in sinus bradycardia, no other significant arrhythmia noted on telemetry, denied any, chest pain shortness of breath, lightheadedness. Had an episode of sundowning last night. Medications: Medication Review Details: Generic Name Dose Route Start Last Admin Trade Name Albin PRN Reason Stop Dose Admin Aspirin 81 mg 05/09/23 09:00 05/10/23 08:32 Aspirin 81 Mg Ec Tablet PO 81 mg DAILY MACI Administration Atorvastatin Calci um 20 mg 05/09/23 09:00 05/10/23 08:31 Atorvastatin 40 Mg Tablet PO 20 mg DAILY MACI Administration Citalopram Hydrobr omide 10 mg 05/09/23 09:00 05/10/23 08:32 Citalopram 20 Mg Tablet PO 10 mg DAILY MACI Administration Finasteride 5 mg 05/09/23 09:00 05/10/23 08:30 Finasteride 5 Mg Tablet PO 5 mg DAILY MACI Administration Heparin Sodium (Po rcine) 5,000 unit 05/09/23 20:00 05/10/23 08:31 Heparin 5,000 Un it/Ml Inj 1 Ml SUBCUT 5,000 unit Q12H MACI Administration Hydralazine HCl 100 mg 05/09/23 09:00 05/10/23 08:31 Hydralazine 50 M g Tablet PO 100 mg TID MACI Administration Losartan Potassium 100 mg 05/09/23 09:00 05/10/23 08:32 Losartan 50 Mg T ablet PO 100 mg DAILY MACI Administration Tamsulosin HCl 0.4 mg 05/09/23 09:45 05/10/23 08:30 Tamsulosin 0.4 M g Capsule PO 0.4 mg DAILY MACI Administration Vitals/I&O/Wt Last Vital Signs Temp 98.0 F 05/10/23 07:52 Pulse 53 L 05/10/23 12:00 Resp 21 H 05/10/23 12:00 BP 132/59 05/10/23 12:00 Pulse Ox 94 05/10/23 12:00 O2 Del Method Room Air 05/10/23 12:00 05/10/23 05/10/23 05/10/23 06:59 14:59 22:59 Intake Total 0 / 2130 360 / 360 Output Total 550 / 2740 Balance -550 / -610 360 / 360 Weight last 48 hrs Weight 74.843 kg Physical Exam HENMT: COMMON NORMALS: normocephalic and atraumatic HEAD & SCALP: normocephalic and atraumatic Resp: COMMON NORMALS: normal respiratory effort, No retractions, No use of accessory muscles and clear to auscultation bilaterally EFFORT & INSPECTION: Yes symmetric chest movement AUSCULTATION: clear to auscultation bilaterally Cardio: COMMON NORMALS: regular rate, regular rhythm, S1 normal heart sound present, S2 normal heart sound present, No gallops present (Cardio), No murmurs present (Cardio), No rub (Cardio) and Peripheral pulses 2+ throughout RATE: regular rate RHYTHM: regular rhythm HEART SOUNDS: S1 normal heart sound present and S2 normal heart sound present PERIPHERAL PULSES: Peripheral pulses 2+ throughout GI: COMMON NORMALS: Normal to inspection, nondistended, normoactive bowel sounds present, Soft to palpation, non-tender, No hepatosplenomegaly present and no masses AUSCULTATION: Yes normoactive bowel sounds PALPATION: Yes Soft to palpation and Yes No hepatosplenomegaly present RECTAL EXAM: Yes deferred Extremity: COMMON NORMALS: no clubbing, cyanosis or edema and no pedal edema Urinary Catheter Management: Torres: Cath Placed During This Visit: no Reason for Continuing Indwelling Catheter: Acute Urinary Retention or Obstruction Data 05/10/23 04:36 05/10/23 04:36 A&P Assessment and plan (1) Bradycardia: 2D echo: Has shown normal LV size and systolic function as well as wall thickness no RWMA, LVEF of 60%, grade 2 diastolic dysfunction. TSH is normal Electrolyte are being monitored, patient is not on any shannan blocking agent. For now we will continue telemetry monitoring, if no significant arrhythmias noted on telemetry, will plan to discharge him on event monitor for a month. Still awaiting records from [facility], PCP office was also reached today, but call went into voicemail will try again calling PCP tomorrow in the morning to obtain some records. (2) Hypertension: Continue hydralazine, losartan Continue to monitor blood pressure, adjust as needed. Not a candidate for beta-collette secondary to bradycardia (3) Acute urinary retention: Acute urinary retention patient has history of BPH, he is on finasteride at home, have added Flomax. Status post Torres catheter placement. Currently getting voiding trial, if patient fails voiding trial Torres will be reinserted and he will have to follow urology as outpatient. Plan Chronic kidney disease. I believe he is at his baseline. Dementia, complicating this illness Anemia and thrombocytopenia. Unfortunately not a significant amount of old lab is available. Hopefully this has been evaluated in the past. Requesting records. Multiple other medical problems as outlined in past medical history Allow natural Heparin for DVT prophylaxis currently. Attestations Medical Necessity Statement*: In hospital for monitoring of bradycardia. Coding Level of Care Code Acute Code for [facility] Diagnoses Bradycardia R00.1 Hypertension I10 Acute urinary retention R33.8
--- NOTE | 2023-05-10 20:35 | PC.NURSE ---
Patient up to bathroom. Patient reported urinating. Observed urine all over the bathroom floor. Will continue to monitor. Bed alarm is set.
--- NOTE | 2023-05-10 21:47 | PC.NURSE ---
Patient confused tonight. Will not remain in bed and will not leave telemetry in place. Patient is pleasant and directable at this time. Bed alarm is set. Will continue to monitor.
[2023-05-10] MEDS: OLANZapine 5 mg ODT PO (23:32)
--- NOTE | 2023-05-10 23:33 | PC.NURSE ---
Poor little man is very confused this evening and very upset. Unable to get him to stay in bed or leave telemetry on. Patient has dementia at baseline but is almost weepy tonight. Patient has not slept in [address] Gurrola. placed orders. Medication given as ordered and documented. Instructed patient on new medication. Patient verbalized understanding.
[2023-05-11] VITALS (7 sets, daily range): BP systolic 142–157; BP diastolic 65–74; PULSE 42–54; RESP 16–28; TEMP 36.4–37; O2SAT 92–97
--- NOTE | 2023-05-11 01:43 | PC.NURSE ---
Patient remains confused and restless. Will continue to monitor.
[2023-05-11] MEDS: losartan 50 mg Tablet 100 MG PO (08:46)
[2023-05-11] MEDS: hyDRALAzine 50 mg Tablet 100 MG PO (08:46)
[2023-05-11] MEDS: finasteride 5 mg Tablet PO (08:47)
[2023-05-11] MEDS: aspirin 81 mg EC Tablet PO (08:47)
[2023-05-11] MEDS: atorvastatin 40 mg Tablet 20 MG PO (08:47)
[2023-05-11] MEDS: tamsulosin 0.4 mg Capsule PO (08:47)
[2023-05-11] MEDS: citalopram 20 mg Tablet 10 MG PO (08:47)
[2023-05-11] MEDS: heparin 5,000 unit/mL INJ 1 mL 5000 UNIT SUBCUT (08:47)
--- NOTE | 2023-05-11 10:17 | PC.NURSE ---
Patient awaiting discharge, IV removed, discharge packet provided, meds sent to pharmacy. Patient will be discharged and be taken to heart care services for an event monitor placement.
--- NOTE | 2023-05-11 14:56 | P.DS_ITS ---
Discharge Providers Date of Admission: 05/11/23 13:30 Date of Discharge: May 11, 2023 Attending Provider at Admission: Emmanuel Roblero MD Attending Provider at Discharge: Emmanuel Roblero MD Primary Care Provider: Tamiko Paula MD Reason for Visit Reason for Visit: sent by amada/stroke like symptoms Discharge Data Studies Completed and Pending Completed Studies During Hospitalization Category Date Time Status CT head wo con* [id number] Stat Cat Scan 05/11/23 11:42 Completed Pending at discharge Category Date Time Status Troponin(5th) 6 hour. Timed Lab 05/11/23 17:51 Ordered Urinalysis Stat Lab 05/11/23 11:42 Uncollected Radiology Impressions Head CT 05/11/23 11:42 IMPRESSION: 1. No acute intracranial hemorrhage or edema. 2. 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 3. Remote LEFT occipital lobe infarct. Laboratory Results WBC 5.1 10^3/uL (4.0-10.0) 05/11/23 11:51 RBC 3.51 10^6/uL (4.1-5.3) L 05/11/23 11:51 Hgb 10.9 g/dL (11.7-16.6) L 05/11/23 11:51 Hct 34.1 % (42.0-52.0) L 05/11/23 11:51 MCV 97.2 fl (80-94) H 05/11/23 11:51 MCH 31.1 pg (28.0-34.0) 05/11/23 11:51 MCHC 32.0 g/dL (30.0-36.0) 05/11/23 11:51 RDW 13.1 % (12.1-15.1) 05/11/23 11:51 Plt Count 115 10^3/cmm (130-400) L 05/11/23 11:51 MPV 11.1 fL (7.4-10.4) H 05/11/23 11:51 Neut % (Auto) 67.0 % 05/11/23 11:51 Lymph % (Auto) 19.5 % 05/11/23 11:51 Garfield % (Auto) 10.5 % 05/11/23 11:51 Eos % (Auto) 2.0 % 05/11/23 11:51 Baso % (Auto) 0.4 % 05/11/23 11:51 Neut # (Auto) 3.43 10^3/uL (1.8-7.7) 05/11/23 11:51 Lymph # (Auto) 1.0 10^3/uL (0.8-4.8) 05/11/23 11:51 Garfield # (Auto) 0.5 10^3/uL (0.2-0.9) 05/11/23 11:51 Eos # (Auto) 0.1 10^3/uL (0.0-0.8) 05/11/23 11:51 Baso # (Auto) 0.0 10^3/uL (0.0-0.1) 05/11/23 11:51 Nucleated RBC % (auto) 0 % 05/11/23 11:51 Nucleated RBCs # 0.0 /100WBC 05/11/23 11:51 Sodium 139 mmol/L (136-145) 05/11/23 11:51 Potassium 4.1 mmol/L (3.5-5.1) 05/11/23 11:51 Chloride 105 mmol/L (98-107) 05/11/23 11:51 Carbon Dioxide 26 mmol/L (22-29) 05/11/23 11:51 Anion Gap 12.1 (5-19) 05/11/23 11:51 BUN 26 mg/dL (8-23) H 05/11/23 11:51 Creatinine 1.5 mg/dL (0.7-1.2) H 05/11/23 11:51 GFR Calculation Not Reportable 05/11/23 11:51 Glucose 125 mg/dL (65-115) H 05/11/23 11:51 POC Glucose 124 mg/dL (70-110) H 05/11/23 11:39 Calculated Osmolality 294 mOsm/kg (285-295) 05/11/23 11:51 Calcium 8.7 mg/dL (8.5-10.5) 05/11/23 11:51 Total Bilirubin 0.3 mg/dL (0.15-1.2) 05/11/23 11:51 AST 11 U/L (0-40) 05/11/23 11:51 ALT 9 U/L (0-41) 05/11/23 11:51 Alkaline Phosphatase 65 U/L (40-130) 05/11/23 11:51 Troponin T Baseline 24 ng/L (0-15) H 05/11/23 11:51 Troponin T 120 Minute 23.17 ng/L (0-15) H 05/11/23 13:50 Delta Troponin T -0.83 ABS# (0-10) L 05/11/23 13:50 NT-Pro-B Natriuret Pep 541 pg/mL (0-450) H 05/11/23 11:51 Total Protein 5.8 g/dL (6.6-8.7) L 05/11/23 11:51 Albumin 3.6 g/dL (3.5-5.2) 05/11/23 11:51 Globulin 2.2 g/dL (1.3-4.6) 05/11/23 11:51 TSH 3.11 uIU/mL (0.27-4.20) 05/11/23 11:51 Vitals Last Vital Signs Temp 97.7 F 05/11/23 12:05 Pulse 56 L 05/11/23 14:13 Resp 20 H 05/11/23 14:13 BP 159/74 05/11/23 14:13 Pulse Ox 97 05/11/23 14:13 O2 Del Method Room Air 05/11/23 12:21 Discharge Plan Discharge Patient Disposition: Home Condition: Stable Prescriptions: No Action atorvastatin 20 mg tablet 20 mg PO DAILY baclofen 10 mg tablet See Rx Instructions .ROUTE .COMPLEX Rx Instructions: 10 MG TID AND HS citalopram 10 mg tablet 10 mg PO DAILY finasteride 5 mg tablet 5 mg PO DAILY hydralazine 100 mg tablet 100 mg PO TID losartan 100 mg tablet 100 mg PO DAILY coenzyme Q10 [Co Q-10] 100 mg Capsule 100 mg PO DAILY tamsulosin 0.4 mg Capsule 0.4 mg PO DAILY 30 Days Qty: 30 3RF Aspir-81 81 mg Tablet,Delayed Release (Dr/Ec) 81 mg PO DAILY furosemide 20 mg Tablet 20 mg PO QAM lisinopril 40 mg Tablet 20 mg PO DAILY saw palmetto 450 mg Capsule 450 mg PO BID Rx Instructions: give with food (meal/snack) ferrous sulfate 27 mg iron Tablet 27 mg PO DAILY Referrals: Tamiko Paula MD [Primary Care Provider] - Patient Instructions: Opioid Safety Coding Level of Care Code Acute Code for Chg Fwd Diagnoses
== END 2023-05-11 10:18 | disposition home or self-care (01) ==
LOC: ER 06:00 → CSU 06:18
PROVIDERS: Admitting Provider Internal Medicine; Emergency Provider Emergency Medicine; PCP Family Medicine; Visit Provider Internal Medicine
DX: R00.1 Bradycardia, unspecified (principal); N40.1 Benign prostatic hyperplasia with lower urinary tract symptoms; R33.8 Other retention of urine; I12.9 Hypertensive chronic kidney disease with stage 1 through stage 4 chronic kidney disease, or unspecified chronic kidney disease; N18.9 Chronic kidney disease, unspecified; E78.5 Hyperlipidemia, unspecified; Z87.891 Personal history of nicotine dependence; R20.0 Anesthesia of skin; Z79.82 Long term (current) use of aspirin; Z86.73 Personal history of transient ischemic attack (TIA), and cerebral infarction without residual deficits; F03.90 Unspecified dementia, unspecified severity, without behavioral disturbance, psychotic disturbance, mood disturbance, and anxiety; D64.9 Anemia, unspecified; D69.6 Thrombocytopenia, unspecified; N40.0 Benign prostatic hyperplasia without lower urinary tract symptoms; I35.1 Nonrheumatic aortic (valve) insufficiency; I34.0 Nonrheumatic mitral (valve) insufficiency; I07.1 Rheumatic tricuspid insufficiency; I37.1 Nonrheumatic pulmonary valve insufficiency
CPT/HCPCS: 36415; 36416; 51702; 51798; 70450; 70551; 71045; 80048; 80053; 81003; 82962; 83735; 83880; 84443; 84484; 85025; 92523; 92610; 93005; 93270; 93306; 93880; 96372; 96374; 97530; 99285; G0378; J0360; J1644; J1650; J2060; J3486

== ENCOUNTER 2023-05-11 11:25 | Observation (INO) | payer MEDICARE, SELFPAY ==
[2023-05-11] VITALS (12 sets, daily range): BP systolic 115–189; BP diastolic 58–74; PULSE 48–75; RESP 17–21; TEMP 36.1–36.6; O2SAT 91–99
--- NOTE | 2023-05-11 11:39 | ED_ITS ---
HPI - Neuro Symptoms/Deficit General: Chief Complaint: Neuro Symptoms/Deficit Stated Complaint: sent by amada/stroke like symptoms Time Seen by Provider: 05/11/23 11:39 Limitations: altered mental status History of Present Illness: Mr. Villalpando is an 88-year-old gentleman presenting the emergency department for possible strokelike symptoms. He actually was just discharged from the hospital day. He presented with urinary retention and mental status change as well as possible chest pain and bradycardia. His responses were slowed at that time and he is somewhat unsteady. He appears largely similar today and does not recall many specific details. Review of Systems General: Reports: ROS unobtainable due to mental status PFSH ED PFSH: Medical History BPH (benign prostatic hyperplasia) CVA (cerebral vascular accident) Dementia Depression with anxiety Hyperlipidemia Hypertension No significant past medical history Surgical History (Updated 05/09/23 @ 07:42 by Navin Gurrola MD) History of cholecystectomy No significant past surgical history Family History (Updated 05/09/23 @ 07:42 by Navin Gurrola MD) Other Diabetes Social History Smoking and tobacco status: former smoker Alcohol intake: never Physical Exam Const: COMMON NORMALS: alert GENERAL APPEARANCE: cooperative and well developed HENMT: COMMON NORMALS: normocephalic and atraumatic HEAD & SCALP: normocephalic and atraumatic Eye: COMMON NORMALS: conjunctivae normal CONJUNCTIVA: Yes conjunctivae normal SCLERA: sclerae normal Neck/C-Spine: COMMON NORMALS: supple GENERAL: Yes trachea midline Resp: COMMON NORMALS: clear to auscultation bilaterally EFFORT & INSPECTION: Yes able to speak in complete sentences AUSCULTATION: clear to auscultation bilaterally Cardio: COMMON NORMALS: regular rhythm RATE: bradycardic RHYTHM: regular rhythm GI: COMMON NORMALS: Soft to palpation PALPATION: Yes Soft to palpation and No Tenderness to palpation present (GI) Extremity: GENERAL: Yes normal exam except as noted and No edema Neuro: COMMON NORMALS: moves all extremities SENSORIUM/ORIENTATION: Yes alert, No Orientation impaired and Yes fluctuating sensorium Course Vital Signs: Vital signs: Vital Signs Temperature 97.6 F 05/13/23 11:29 Pulse Rate 52 L 07/23/23 11:29 Respiratory Rate 16 05/13/23 11:29 Blood Pressure 121/52 05/13/23 11:29 Pulse Oximetry 93 05/13/23 11:29 Oxygen Delivery Me thod Room Air 05/13/23 11:29 MDM - Neuro Symptoms/Deficit Medical Decision Making 88-year-old gentleman presenting to the emergency department for possible strokelike symptoms. Patient mildly confused and mildly dysarthric though it is somewhat unclear or rather it is likely that this is similar to prior presentation. Given nonfocal symptoms and recent history patient is not a candidate for tPA. EKG demonstrates sinus bradycardia, normal axis and other intervals, no STEMI. Laboratory studies reviewed. Head CT demonstrates no acute abnormality. The results of ED evaluation were discussed with the patient including plan for admission due to requirement for level of care not available if discharged to prevent significant worsening/deterioration. Patient agreeable with plan. Discussed with hospitalist service who was agreeable to admit patient. Medical Records I reviewed the patient's medical records. Lab Data I reviewed the patient's lab results. 05/13/23 04:40 05/13/23 04:[address] 05/11/23 11:42 IMPRESSION: 1. No acute intracranial hemorrhage or edema. 2. 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 3. Remote LEFT occipital lobe infarct. Head MRI 05/11/23 15:03 IMPRESSION: No acute intracranial abnormality. Carotid Doppler Study 05/12/23 21:17 IMPRESSION: Mild orote-htybibh-hler-left carotid arterial stenosis. REFERENCES: SRU CRITERIA. The degree of internal carotid artery stenosis is based on criteria defined by the Society of Radiologists in Ultrasound (SRU). Normal is no stenosis. Mild is less than 50% stenosis. Moderate is 50-69% stenosis. Severe is greater than 69% stenosis to near occlusion. Near occlusion is a markedly narrowed lumen. Total occlusion is no detectable patent lumen. Laboratory Results WBC 5.1 10^3/uL (4.0-10.0) 05/11/23 11:51 RBC 3.51 10^6/uL (4.1-5.3) L 05/11/23 11:51 Hgb 10.9 g/dL (11.7-16.6) L 05/11/23 11:51 Hct 34.1 % (42.0-52.0) L 05/11/23 11:51 MCV 97.2 fl (80-94) H 05/11/23 11:51 MCH 31.1 pg (28.0-34.0) 05/11/23 11:51 MCHC 32.0 g/dL (30.0-36.0) 05/11/23 11:51 RDW 13.1 % (12.1-15.1) 05/11/23 11:51 Plt Count 115 10^3/cmm (130-400) L 05/11/23 11:51 MPV 11.1 fL (7.4-10.4) H 05/11/23 11:51 Neut % (Auto) 67.0 % 05/11/23 11:51 Lymph % (Auto) 19.5 % 05/11/23 11:51 [place] % (Auto) 10.5 % 05/11/23 11:51 Eos % (Auto) 2.0 % 05/11/23 11:51 Baso % (Auto) 0.4 % 05/11/23 11:51 Neut # (Auto) 3.43 10^3/uL (1.8-7.7) 05/11/23 11:51 Lymph # (Auto) 1.0 10^3/uL (0.8-4.8) 05/11/23 11:51 [place] # (Auto) 0.5 10^3/uL (0.2-0.9) 05/11/23 11:51 Eos # (Auto) 0.1 10^3/uL (0.0-0.8) 05/11/23 11:51 Baso # (Auto) 0.0 10^3/uL (0.0-0.1) 05/11/23 11:51 Nucleated RBC % (auto) 0 % 05/11/23 11:51 Nucleated RBCs # 0.0 /100WBC 05/11/23 11:51 Sodium 139 mmol/L (136-145) 05/11/23 11:51 Potassium 4.1 mmol/L (3.5-5.1) 05/11/23 11:51 Chloride 105 mmol/L (98-107) 05/11/23 11:51 Carbon Dioxide 26 mmol/L (22-29) 05/11/23 11:51 Anion Gap 12.1 (5-19) 05/11/23 11:51 BUN 26 mg/dL (8-23) H 05/11/23 11:51 Creatinine 1.5 mg/dL (0.7-1.2) H 05/11/23 11:51 GFR Calculation Not Reportable 05/11/23 11:51 Glucose 125 mg/dL (65-115) H 05/11/23 11:51 POC Glucose 124 mg/dL (70-110) H 05/11/23 11:39 Calculated Osmolality 294 mOsm/kg (285-295) 05/11/23 11:51 Calcium 8.7 mg/dL (8.5-10.5) 05/11/23 11:51 Total Bilirubin 0.3 mg/dL (0.15-1.2) 05/11/23 11:51 AST 11 U/L (0-40) 05/11/23 11:51 ALT 9 U/L (0-41) 05/11/23 11:51 Alkaline Phosphatase 65 U/L (40-130) 05/11/23 11:51 Troponin T Baseline 24 ng/L (0-15) H 05/11/23 11:51 Troponin T 120 Minute 23.17 ng/L (0-15) H 05/11/23 13:50 Delta Troponin T -0.83 ABS# (0-10) L 05/11/23 13:50 NT-Pro-B Natriuret Pep 541 pg/mL (0-450) H 05/11/23 11:51 Total Protein 5.8 g/dL (6.6-8.7) L 05/11/23 11:51 Albumin 3.6 g/dL (3.5-5.2) 05/11/23 11:51 Globulin 2.2 g/dL (1.3-4.6) 05/11/23 11:51 TSH 3.11 uIU/mL (0.27-4.20) 05/11/23 11:51 Discharge Plan Discharge Patient Disposition: Placed in Observation Admit Provider: Emmanuel Roblero Clinical Impression: Dysarthria, AMS (altered mental status) Coding Level of Care Code ED Painting Instructor for Whitley Perez
--- NOTE | 2023-05-11 11:42 | CT_ITS ---
WS: [id number] CT HEAD NONCONTRAST HISTORY: ams, confusion TECHNIQUE: Contiguous axial imaging performed through the brain in 2.5 mm imaging. Bone and soft tiss ue windows. Sagittal and coronal reformats reviewed. All CT scans at [facility] use at least one of these dose optimization techniques: automated exposure control; mA and/or kV adjustment per pa tient size (includes targeted exams where dose is matched to clinical indication); or iterative recon struction. DLP: 1082.68 mGy.cm COMPARISON: 05/09/2023 No acute intracranial hemorrhage, midline shift or mass effect. Mild atrophy and small vessel ischemic disease. Remote LEFT occipital lobe infarct. Ventricles: Normal size with no hydrocephalus. No inferior displacement of cerebellar tonsils. There is also mild to moderate bilateral cerebellar a trophy. Dense calcifications distal vertebral artery, greatest on the RIGHT. There is also extensive calcific ation within the intracranial carotid arteries through the cavernous sinus. Paranasal sinuses: As visualized are clear. Mastoid air cells: Well pneumatized. Calvarium and scalp: Skull is intact with no soft tissue edema or swelling. CT/CT head wo con* [id number] IMPRESSION: 1. No acute intracranial hemorrhage or edema. 2. 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 3. Remote LEFT occipital lobe infarct.
[2023-05-11 11:43] LABS: Glucose Point of Care 124 mg/dL (70-110)
--- NOTE | 2023-05-11 12:01 | PC.NURSE ---
[facility] STATES PT LAST KNOWN NORMAL WAS TODAY AT 1055. DR. STEVENSON STATES PT IS CONFUSED BASELINE. DR. FERRO NOTIFIED.
[2023-05-11 12:05] LABS: Basophils % 0.4 %; Eosinophils # 0.1 10^3/uL (0.0-0.8); Hematocrit 34.1 % (42.0-52.0); Hemoglobin 10.9 g/dL (11.7-16.6); Lymphocytes % 19.5 %; Mean Corpuscular Hemoglobin 31.1 pg (28.0-34.0); Mean Corpuscular Volume 97.2 fl (80-94); Mean Platelet Volume 11.1 fL (7.4-10.4); Monocytes # 0.5 10^3/uL (0.2-0.9); Monocytes % 10.5 %; Neutrophils # 3.43 10^3/uL (1.8-7.7); Nucleated Red Blood Cells % 0 %; Platelet Count 115 10^3/cmm (130-400); Red Blood Count 3.51 10^6/uL (4.1-5.3); Red Cell Distribution Width 13.1 % (12.1-15.1); White Blood Count 5.1 10^3/uL (4.0-10.0)
--- NOTE | 2023-05-11 12:05 | PC.NURSE ---
ED PHYSICIAN VERBALIZED HE DOES NOT SUSPECT A STROKE DUE TO BASELINE MENTATION OF PT. STROKE ALERT NOT CALLED.
--- NOTE | 2023-05-11 12:21 | ECG_ITS ---
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 Measurements Intervals [facility] Rate: 49 P: 48 SD: 160 QRS: 37 QRSD: 91 T: 59 QT: 477 QTc: 431 Interpretive Statements SINUS BRADYCARDIA Compared to ECG 05/09/2023 04:59:48 No significant changes Electronically Signed On 05-12-2023 6:58:26 CDT by Deidra Burnette M.D. [id number]
--- NOTE | 2023-05-11 12:22 | PC.PHAR ---
MEDICATIONS UNCONFIRMED. PT STATES TAKES CARE OF MEDICATION LIST.
[2023-05-11 12:34] LABS: Alanine Aminotransferase 9 U/L (0-41); Albumin Level 3.6 g/dL (3.5-5.2); Alkaline Phosphatase 65 U/L (40-130); Anion Gap 12.1 (5-19); Aspartate Amino Transferase 11 U/L (0-40); Blood Urea Nitrogen 26 mg/dL (8-23); Calcium 8.7 mg/dL (8.5-10.5); Carbon Dioxide 26 mmol/L (22-29); Chloride 105 mmol/L (98-107); Globulin 2.2 g/dL (1.3-4.6); Glucose 125 mg/dL (65-115); NT Pro B Type Natriuretic Pept 541 pg/mL (0-450); Osmolality Calculated 294 mOsm/kg (285-295); Potassium 4.1 mmol/L (3.5-5.1); Sodium 139 mmol/L (136-145); Thyroid Stimulating Hormone 3.11 uIU/mL (0.27-4.20); Total Bilirubin 0.3 mg/dL (0.15-1.2); Total Protein 5.8 g/dL (6.6-8.7)
[2023-05-11 12:36] LABS: Troponin(5th) Baseline 24 ng/L (0-15)
--- NOTE | 2023-05-11 13:56 | ECG_ITS ---
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 Measurements Intervals [place] Rate: 48 P: 45 MO: 160 QRS: 20 QRSD: 88 T: 46 QT: 484 QTc: 433 Interpretive Statements SINUS BRADYCARDIA Compared to ECG 05/11/2023 12:21:12 No significant changes Electronically Signed On 05-12-2023 7:00:23 CDT by Deidra Burnette M.D. [id number]
--- NOTE | 2023-05-11 14:22 | PC.PHAR ---
PT HAS MEDICATIONS FROM [facility] AND MEDICATIONS FROM MAIL ORDER, WHICH WE WERE UNABLE TO VERIFY. MAIL ORDER MEDS AND OTC MEDS VERIFIED BY . LARISSA [phone]
[2023-05-11 14:28] LABS: Troponin 5 2HR 23.17 ng/L (0-15)
[2023-05-11 14:30] LABS: Troponin 5 2HR Delta -0.83 ABS# (0-10)
--- NOTE | 2023-05-11 14:56 | PM.DCS ---
Discharge Providers Date of Admission: 05/11/23 13:30 Date of Discharge: May 11, 2023 Attending Provider at Admission: Emmanuel Roblero MD Attending Provider at Discharge: Emmanuel Roblero MD Primary Care Provider: Tamiko Paula MD Reason for Visit Reason for Visit: sent by amada/stroke like symptoms Discharge Data Studies Completed and Pending Completed Studies During Hospitalization Category Date Time Status CT head wo con* [id number] Stat Cat Scan 05/11/23 11:42 Completed Pending at discharge Category Date Time Status Troponin(5th) 6 hour. Timed Lab 05/11/23 17:51 Ordered Urinalysis Stat Lab 05/11/23 11:42 Uncollected Radiology Impressions Head CT 05/11/23 11:42 IMPRESSION: 1. No acute intracranial hemorrhage or edema. 2. 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 3. Remote LEFT occipital lobe infarct. Laboratory Results WBC 5.1 10^3/uL (4.0-10.0) 05/11/23 11:51 RBC 3.51 10^6/uL (4.1-5.3) L 05/11/23 11:51 Hgb 10.9 g/dL (11.7-16.6) L 05/11/23 11:51 Hct 34.1 % (42.0-52.0) L 05/11/23 11:51 MCV 97.2 fl (80-94) H 05/11/23 11:51 MCH 31.1 pg (28.0-34.0) 05/11/23 11:51 MCHC 32.0 g/dL (30.0-36.0) 05/11/23 11:51 RDW 13.1 % (12.1-15.1) 05/11/23 11:51 Plt Count 115 10^3/cmm (130-400) L 05/11/23 11:51 MPV 11.1 fL (7.4-10.4) H 05/11/23 11:51 Neut % (Auto) 67.0 % 05/11/23 11:51 Lymph % (Auto) 19.5 % 05/11/23 11:51 Richardson % (Auto) 10.5 % 05/11/23 11:51 Eos % (Auto) 2.0 % 05/11/23 11:51 Baso % (Auto) 0.4 % 05/11/23 11:51 Neut # (Auto) 3.43 10^3/uL (1.8-7.7) 05/11/23 11:51 Lymph # (Auto) 1.0 10^3/uL (0.8-4.8) 05/11/23 11:51 Richardson # (Auto) 0.5 10^3/uL (0.2-0.9) 05/11/23 11:51 Eos # (Auto) 0.1 10^3/uL (0.0-0.8) 05/11/23 11:51 Baso # (Auto) 0.0 10^3/uL (0.0-0.1) 05/11/23 11:51 Nucleated RBC % (auto) 0 % 05/11/23 11:51 Nucleated RBCs # 0.0 /100WBC 05/11/23 11:51 Sodium 139 mmol/L (136-145) 05/11/23 11:51 Potassium 4.1 mmol/L (3.5-5.1) 05/11/23 11:51 Chloride 105 mmol/L (98-107) 05/11/23 11:51 Carbon Dioxide 26 mmol/L (22-29) 05/11/23 11:51 Anion Gap 12.1 (5-19) 05/11/23 11:51 BUN 26 mg/dL (8-23) H 05/11/23 11:51 Creatinine 1.5 mg/dL (0.7-1.2) H 05/11/23 11:51 GFR Calculation Not Reportable 05/11/23 11:51 Glucose 125 mg/dL (65-115) H 05/11/23 11:51 POC Glucose 124 mg/dL (70-110) H 05/11/23 11:39 Calculated Osmolality 294 mOsm/kg (285-295) 05/11/23 11:51 Calcium 8.7 mg/dL (8.5-10.5) 05/11/23 11:51 Total Bilirubin 0.3 mg/dL (0.15-1.2) 05/11/23 11:51 AST 11 U/L (0-40) 05/11/23 11:51 ALT 9 U/L (0-41) 05/11/23 11:51 Alkaline Phosphatase 65 U/L (40-130) 05/11/23 11:51 Troponin T Baseline 24 ng/L (0-15) H 05/11/23 11:51 Troponin T 120 Minute 23.17 ng/L (0-15) H 05/11/23 13:50 Delta Troponin T -0.83 ABS# (0-10) L 05/11/23 13:50 NT-Pro-B Natriuret Pep 541 pg/mL (0-450) H 05/11/23 11:51 Total Protein 5.8 g/dL (6.6-8.7) L 05/11/23 11:51 Albumin 3.6 g/dL (3.5-5.2) 05/11/23 11:51 Globulin 2.2 g/dL (1.3-4.6) 05/11/23 11:51 TSH 3.11 uIU/mL (0.27-4.20) 05/11/23 11:51 Vitals Last Vital Signs Temp 97.7 F 05/11/23 12:05 Pulse 56 L 05/11/23 14:13 Resp 20 H 05/11/23 14:13 BP 159/74 05/11/23 14:13 Pulse Ox 97 05/11/23 14:13 O2 Del Method Room Air 05/11/23 12:21 Discharge Plan Discharge Patient Disposition: Home Condition: Stable Prescriptions: No Action atorvastatin 20 mg tablet 20 mg PO DAILY baclofen 10 mg tablet See Rx Instructions .ROUTE .COMPLEX Rx Instructions: 10 MG TID AND HS citalopram 10 mg tablet 10 mg PO DAILY finasteride 5 mg tablet 5 mg PO DAILY hydralazine 100 mg tablet 100 mg PO TID losartan 100 mg tablet 100 mg PO DAILY coenzyme Q10 [Co Q-10] 100 mg Capsule 100 mg PO DAILY tamsulosin 0.4 mg Capsule 0.4 mg PO DAILY 30 Days Qty: 30 3RF Aspir-81 81 mg Tablet,Delayed Release (Dr/Ec) 81 mg PO DAILY furosemide 20 mg Tablet 20 mg PO QAM lisinopril 40 mg Tablet 20 mg PO DAILY saw palmetto 450 mg Capsule 450 mg PO BID Rx Instructions: give with food (meal/snack) ferrous sulfate 27 mg iron Tablet 27 mg PO DAILY Referrals: Tamiko Paula MD [Primary Care Provider] - Patient Instructions: Opioid Safety Coding Level of Care Code Acute Code for Chg Fwd Diagnoses
--- NOTE | 2023-05-11 15:03 | MRR_ITS ---
PROCEDURE INFORMATION: Exam: MR Head Without Contrast Exam date and time: 05/11/2023 4:21 PM Age: 88 years old Clinical indication: Injury or trauma; Fall; Other: Fell and hit head a week ago; Additional info: Stroke like symptoms TECHNIQUE: Imaging protocol: Magnetic resonance imaging of the head without contrast. COMPARISON: CT head wo con* [id number] 05/11/2023 11:57 AM FINDINGS: Brain: Chronic left occipital encephalomalacia is unchanged. No acute infarct. No hemorrhage. Stable involutional changes of the brain. No mass effect. Small chronic lacunar type infarct in the left cerebellum is unchanged. Cerebral ventricles: Stable ventricular size. No ventriculomegaly. Bones/joints: Unremarkable. Paranasal sinuses: Scattered paranasal sinus mucosal thickening, without air-fluid level present. Mastoid air cells: Normal as visualized. No mastoid effusion. Orbital cavities: Unremarkable. Soft tissues: Unremarkable. Other findings: Study is degraded by motion. MR/MR head wo con* [id number] IMPRESSION: No acute intracranial abnormality.
--- NOTE | 2023-05-11 15:05 | P.HP_ITS ---
Providers/Chief Complaint Admitting Physician: Emmanuel Roblero MD Primary Care Provider: Tamiko Paula MD Chief Complaint: Dysarthia History of Present Illness Edmund Villalpando is a 88 year old male with PMH of HTN,BPH he came 2 days back with c.o numbness over his face on both sides, legs, and arms.? No history of injury.? No focal weakness.? Apparently when EMS picked him up he was bradycardic, reportedly into the 30s and got atropine.? Unfortunately they did not do an EKG.He was recently in the emergency department, on April 26 with palpitations and found to have a supraventricular rhythm around 130, which appeared to be atrial fibrillation.? He converted spontaneously, and it was recommended he follow-up with his primary care provider.? He is not on any beta-collette.? He has previously seen cardiology at [facility], referred from his primary, for concerns he might need a pacemaker.He was admitted for the management of Significant bradycardia, he was kept on telemetry monitoring during the hospital stay which showed sinus bradycardia with h/r in upper 40s and above,he also developed ac urinary retention s/p sullivan catheter placement with removal on discharge as he passed the voiding trail.He also had severe sundowing during the hospital stay,he was discharged today with event monitor, while getting event monitor placed in the heart care center, he started experie ncing speech difficulty,as well as was also complaining of weakness, he also appeared to be more confused then is normal basleline,he was sent to ER for work up of what appeared to be a stroke like symptom in the ER his NIHSS WAS 1 , C.T Head withot contrast: Showed no acute intracranial pathology as well as MRI head without contrast show no No acute intracranial abnormality.EKG Showed Sinus Bradycardia.Troponin trend was unremarkable. His vitals and labs have been reviewed. . Review of Systems General: Reports: 10 or more systems reviewed and unremarkable except in HPI and below Const: Denies: body aches Card: Denies: palpitations Resp: Denies: dyspnea GI: Denies: abdominal pain or nausea Musc: Denies: back pain Neuro: Denies: headache(s) Medications/Allergies Home Medications Medication Instructions Recorded Confirmed Last Taken Type atorvastatin 20 mg tablet 20 mg PO DAILY 05/09/23 05/11/23 05/11/23 History baclofen 10 mg tablet See Rx Instructions .Route .COMPLEX 05/09/23 05/11/23 05/11/23 History citalopram 10 mg tablet 10 mg PO DAILY 05/09/23 05/11/23 Unknown History coenzyme Q10 100 mg capsule (Co 100 mg PO DAILY 05/09/23 05/11/23 05/11/23 History Q-10) finasteride 5 mg tablet 5 mg PO DAILY 05/09/23 05/11/23 05/11/23 History hydralazine 100 mg tablet 100 mg PO TID 05/09/23 05/11/23 05/11/23 History losartan 100 mg tablet 100 mg PO DAILY 05/09/23 05/11/23 05/11/23 History aspirin 81 mg tablet,delayed 81 mg PO DAILY 05/11/23 05/11/23 05/11/23 History release ferrous sulfate 27 mg iron tablet 27 mg PO DAILY 05/11/23 05/11/23 05/11/23 History furosemide 20 mg tablet 20 mg PO QAM 05/11/23 05/11/23 05/11/23 History lisinopril 40 mg tablet 20 mg PO DAILY 05/11/23 05/11/23 05/11/23 History saw palmetto 450 mg capsule 450 mg PO BID 05/11/23 05/11/23 05/11/23 History tamsulosin 0.4 mg capsule 0.4 mg PO DAILY 30 days #30 caps 05/11/23 05/11/23 05/11/23 Rx Allergies Allergy/AdvReac Type Severity Reaction Status Date / Time No Known Allergies Allergy Verified 05/11/23 11:53 PFSH Acute PFSH: Medical History BPH (benign prostatic hyperplasia) CVA (cerebral vascular accident) Dementia Depression with anxiety Hyperlipidemia Hypertension No significant past medical history Surgical History (Updated 05/09/23 @ 07:42 by Navin Gurrola MD) History of cholecystectomy No significant past surgical history Family History (Updated 05/09/23 @ 07:42 by Navin Gurrola MD) Other Diabetes Social History Smoking and tobacco status: former smoker Alcohol intake: never Vitals/I&O/Wt Last Vital Signs Temp 97.7 F 05/11/23 12:05 Pulse 56 L 05/11/23 14:13 Resp 20 H 05/11/23 14:13 BP 159/74 05/11/23 14:13 Pulse Ox 97 05/11/23 14:13 O2 Del Method Room Air 05/11/23 12:21 Weight last 48 hrs Weight 74.389 kg Physical Exam Const: COMMON NORMALS: patient oriented x3 HENMT: COMMON NORMALS: normocephalic and atraumatic HEAD & SCALP: normocephalic and atraumatic Resp: COMMON NORMALS: clear to auscultation bilaterally AUSCULTATION: clear to auscultation bilaterally Cardio: COMMON NORMALS: regular rate, regular rhythm, S1 normal heart sound present, S2 normal heart sound present, No gallops present (Cardio), No murmurs present (Cardio), No rub (Cardio) and Peripheral pulses 2+ throughout RATE: regular rate RHYTHM: regular rhythm HEART SOUNDS: S1 normal heart sound pr esent and S2 normal heart sound present PERIPHERAL PULSES: Peripheral pulses 2+ throughout GI: COMMON NORMALS: Normal to inspection, nondistended, normoactive bowel sounds present, Soft to palpation, non-tender, No hepatosplenomegaly present and no masses AUSCULTATION: Yes normoactive bowel sounds PALPATION: Yes Soft to palpation and Yes No hepatosplenomegaly present RECTAL EXAM: Yes deferred Extremity: COMMON NORMALS: no clubbing, cyanosis or edema and no pedal edema Data 05/11/23 11:51 05/11/23 11:51 A&P Assessment and plan (1) Stroke-like symptoms: (2) Hypertension: (3) Bradycardia: (4) AMS (altered mental status): Plan Micaela Villalpando is a 88 year old male with PMH of HTN,BPH came in today with c/o dysar thia as well as being confused. Assessment : Stroke like symptoms : C.T Head withot contrast: Showed no acute intracranial pathology as well as MRI head without contrast show no No acute intracranial abnormality.EKG Showed Sinus Bradycardia. Continue Aspirin ,statin PT And speech evaluation orthostatic vital has recent 2 d Echo Carotid doppler Telemetry monitoring Sinus Bradycardia : Telemetry monitoring AMS currently unclear cause Monitor Mentation for now Repeat U/A HTN : Continue lisinopril as well as hydralazine Code status :AND DVT PPX: On sc lovenox. Attestations Medical Necessity Statement*: Patient needs to be in hospital for the management of stroke like symptom s.Anticaped LOS Greater then 2 midnights. Coding Level of Care Code Acute Code for Chg Fwd Diagnoses Stroke-like symptoms R29.90 Hypertension I10 Bradycardia R00.1 AMS (altered mental status) R41.82
--- NOTE | 2023-05-11 17:43 | ECG_ITS ---
[facility] Test Date: 2023-05-11 Pat Name: Edmund Villalpando Department: Room: 266 Gender: Male Complaint Operator: : 1935 Requested By: Dario Dillard Order Number: [id number] Saritha MD: Deidra Burnette M.D. Measurements Intervals [employer] Rate: 64 P: 55 NM: 156 QRS: 41 QRSD: 92 T: 80 QT: 417 QTc: 433 Interpretive Statements SINUS RHYTHM Compared to ECG 05/11/2023 13:56:24 Sinus bradycardia no longer present Electronically Signed On 05-12-2023 6:59:44 CDT by Deidra Burnette M.D. [id number]
[2023-05-11] MEDS: enoxaparin 40 mg/0.4 mL Syringe SUBCUT (18:51)
[2023-05-11 19:12] LABS: Troponin 5 6HR 23.26 ng/L (0-15)
[2023-05-11 19:22] LABS: Troponin 5 6HR Delta -0.74 ng/L (0-12)
[2023-05-11] MEDS: hyDRALAzine 50 mg Tablet 100 MG PO (20:57)
[2023-05-12] VITALS (10 sets, daily range): BP systolic 116–155; BP diastolic 56–69; PULSE 51–72; RESP 16–18; TEMP 36.3–36.6; O2SAT 95–99
--- NOTE | 2023-05-12 01:26 | PC.NURSE ---
Addendum entered by Enid Kenney LPN 05/12/23 01:30: time of incident approximately 05/11/232029 Original Note: Patient was found on floor by LIZA Sharma. Edith stated patient's bed alarm had been going off for less than one minute when she entered the room. Patient was on knees in the floor next to his bed. Patient informed LIZA Sharma that he did not his hit head but then later told this nurse that he did. Patient is a dementia patient with poor recollection. Vital signs were obtained and remained near the same as before the fall. Dr. Gurrola was notified. ZURI Hanley Charge notified and family notified as well.
[2023-05-12 04:32] LABS: Basophils % 0.2 %; Eosinophils # 0.1 10^3/uL (0.0-0.8); Eosinophils % 1.4 %; Hematocrit 32.9 % (42.0-52.0); Hemoglobin 10.4 g/dL (11.7-16.6); Lymphocytes # 1.3 10^3/uL (0.8-4.8); Lymphocytes % 19.9 %; Mean Corpuscular HGB Conc 31.6 g/dL (30.0-36.0); Mean Corpuscular Hemoglobin 30.4 pg (28.0-34.0); Mean Corpuscular Volume 96.2 fl (80-94); Mean Platelet Volume 11.2 fL (7.4-10.4); Monocytes # 0.6 10^3/uL (0.2-0.9); Monocytes % 9.4 %; Neutrophils # 4.39 10^3/uL (1.8-7.7); Neutrophils % 68.8 %; Nucleated Red Blood Cells % 0 %; Platelet Count 112 10^3/cmm (130-400); Red Blood Count 3.42 10^6/uL (4.1-5.3); Red Cell Distribution Width 13.1 % (12.1-15.1); White Blood Count 6.4 10^3/uL (4.0-10.0)
[2023-05-12 04:49] LABS: Alanine Aminotransferase 8 U/L (0-41); Albumin Level 3.4 g/dL (3.5-5.2); Alkaline Phosphatase 61 U/L (40-130); Anion Gap 11.2 (5-19); Aspartate Amino Transferase 11 U/L (0-40); Blood Urea Nitrogen 29 mg/dL (8-23); Calcium 8.5 mg/dL (8.5-10.5); Carbon Dioxide 27 mmol/L (22-29); Chloride 102 mmol/L (98-107); Globulin 2.2 g/dL (1.3-4.6); Glucose 86 mg/dL (65-115); Osmolality Calculated 287 mOsm/kg (285-295); Potassium 4.2 mmol/L (3.5-5.1); Sodium 136 mmol/L (136-145); Total Bilirubin 0.3 mg/dL (0.15-1.2); Total Protein 5.6 g/dL (6.6-8.7)
[2023-05-12 06:02] LABS: Add Urine Microscopic? NO; Charge for UA Resulting for Rev
[2023-05-12 06:11] LABS: Bilirubin Urine Neg (Negative); Blood Urine Neg (Negative); Glucose Urine UA Norm (Normal); Ketones Urine Negative (Negative); Leukocyte Esterase Urine Negative (Negative); Nitrate Urine Negative (Negative); Protein Urine Neg (Negative); Urine Appearance Clear (CLEAR); Urine Color Yellow (Yellow); Urobilinogen Urine Norm (Negative); pH Urine 5 (5-7)
[2023-05-12] MEDS: tamsulosin 0.4 mg Capsule PO (08:07)
[2023-05-12] MEDS: lisinopril 20 mg Tablet PO (08:07)
[2023-05-12] MEDS: finasteride 5 mg Tablet PO (08:07)
[2023-05-12] MEDS: atorvastatin 40 mg Tablet 20 MG PO (08:07)
[2023-05-12] MEDS: hyDRALAzine 50 mg Tablet 100 MG PO ×3 (08:07→22:16)
[2023-05-12] MEDS: aspirin 81 mg EC Tablet PO (08:08)
[2023-05-12] MEDS: LORazepam 2 mg/mL INJ 1 mL 1 MG IVP (12:18)
[2023-05-12] MEDS: PARoxetine 20 mg Tablet PO (12:23)
--- NOTE | 2023-05-12 13:52 | PC.SLP ---
[employer] attempted assessment, however, the pt has been given Ativan per report, and is unable to participate at this time.
--- NOTE | 2023-05-12 16:03 | PM.PN ---
Subjective Subjective: Patient was seen and examined this morning, has been extremely confused. Medications: Medication Review Details: Generic Name Dose Route Start Last Admin Trade Name Albin PRN Reason Stop Dose Admin Aspirin 81 mg 05/12/23 09:00 05/12/23 08:08 Aspirin 81 Mg Ec Tablet PO 81 mg DAILY MACI Administration Atorvastatin Calci um 20 mg 05/12/23 09:00 05/12/23 08:07 Atorvastatin 40 Mg Tablet PO 20 mg DAILY MACI Administration Enoxaparin Sodium 40 mg 05/11/23 15:00 05/12/23 15:24 Enoxaparin 40 Mg /0.4 Ml Syringe SUBCUT 40 mg Q24H MACI Administration Finasteride 5 mg 05/12/23 09:00 05/12/23 08:07 Finasteride 5 Mg Tablet PO 5 mg DAILY MACI Administration Hydralazine HCl 100 mg 05/11/23 21:00 05/12/23 15:24 Hydralazine 50 M g Tablet PO 100 mg TID MACI Administration Lisinopril 20 mg 05/12/23 09:00 05/12/23 08:07 Lisinopril 20 Mg Tablet PO 20 mg DAILY MACI Administration Paroxetine HCl 20 mg 05/12/23 12:00 05/12/23 12:23 Paroxetine 20 Mg Tablet PO 20 mg DAILY MACI Administration Tamsulosin HCl 0.4 mg 05/12/23 09:00 05/12/23 08:07 Tamsulosin 0.4 M g Capsule PO 0.4 mg DAILY MACI Administration Vitals/I&O/Wt Last Vital Signs Temp 97.5 F L 05/12/23 12:00 Pulse 65 05/12/23 12:00 Resp 18 05/12/23 12:00 BP 146/69 05/12/23 12:00 Pulse Ox 99 05/12/23 11:47 O2 Del Method Room Air 05/12/23 11:47 05/12/23 05/12/23 05/12/23 06:59 14:59 22:59 Intake Total 1200 / 1200 Output Total 300 / 300 250 / 250 Balance -300 / -60 950 / 950 Weight last 48 hrs Weight 74.389 kg Physical Exam Narrative: Patient has been extremely agitated overnight, Const: COMMON NORMALS: patient oriented x3 HENMT: COMMON NORMALS: normocephalic and atraumatic HEAD & SCALP: normocephalic and atraumatic Resp: COMMON NORMALS: clear to auscultation bilaterally AUSCULTATION: clear to auscultation bilaterally Cardio: COMMON NORMALS: regular rate, regular rhythm, S1 normal heart sound present, S2 normal heart sound present, No gallops present (Cardio), No murmurs present (Cardio), No rub (Cardio) and Peripheral pulses 2+ throughout RATE: regular rate RHYTHM: regular rhythm HEART SOUNDS: S1 normal heart sound present and S2 normal heart sound present PERIPHERAL PULSES: Peripheral pulses 2+ throughout GI: COMMON NORMALS: Normal to inspection, nondistended, normoactive bowel sounds present, Soft to palpation, non-tender, No hepatosplenomegaly present and no masses AUSCULTATION: Yes normoactive bowel sounds PALPATION: Yes Soft to palpation and Yes No hepatosplenomegaly present RECTAL EXAM: Yes deferred Extremity: COMMON NORMALS: no clubbing, cyanosis or edema and no pedal edema Neuro: COMMON NORMALS: patient oriented x3 Data 05/12/23 03:43 05/12/23 03:43 A&P Assessment and plan (1) Stroke-like symptoms: (2) Hypertension: (3) Bradycardia: (4) AMS (altered mental status): Plan Micaela Villalpando is a 88 year old male with PMH of HTN,BPH came in today with c/o dysarthia as well as being confused. Assessment : Stroke like symptoms : C.T Head withot contrast: Showed no acute intracranial pathology as well as MRI head without contrast show no No acute intracranial abnormality.EKG Showed Sinus Bradycardia. MRI brain without contrast:No acute intracranial abnormality. has recent 2 D Echo: Result reviewed Carotid doppler :Mild ygpwg-[id number]-left carotid arterial stenosis Telemetry monitoring Continue Aspirin ,statin PT And speech evaluation orthostatic vital Currently speech is more or less at the baseline. Sinus Bradycardia : Telemetry monitoring Patient was recently discharged home on event monitor. Possible PTSD: Patient has been started on paroxetine 20 mg p.o. daily dose can be accordingly uptitrated. AMS currently unclear cause Monitor Mentation for now Repeat U/A: Negative Frequent redirection HTN : Continue lisinopril as well as hydralazine History of BPH: Continue finasteride and Flomax For his agitation: We will use Geodon as well as Ativan as needed. Code status :AND DVT PPX: On sc lovenox. Attestations Medical Necessity Statement*: Needs to be in hospital for management of confusion. Coding Level of Care Code Acute Code for Chg Fwd Diagnoses Stroke-like symptoms R29.90 Hypertension I10 Bradycardia R00.1 AMS (altered mental status) R41.82
[2023-05-12] MEDS: water for injection-sterile 10 ML 20 ML (16:52)
[2023-05-12] MEDS: ziprasidone 20 mg/mL SDV 10 MG IM (16:52)
--- NOTE | 2023-05-12 21:17 | USR_ITS ---
PROCEDURE INFORMATION: Exam: US Duplex Bilateral Extracranial Arteries; Complete; Carotid Arteries Exam date and time: 05/12/2023 10:14 AM Age: 88 years old Clinical indication: Altered mental status/memory loss; Additional info: Stroke like symptoms TECHNIQUE: Imaging protocol: Real-time duplex ultrasound scan of the bilateral extracranial arteries combining scanlon scale, color Doppler and spectral waveform analysis with image documentation. Complete exam. Exam focused on the carotid arteries. COMPARISON: 1. CT head wo con* [id number] 05/11/2023 11:[address] head wo con* [id number] 05/09/2023 5:14 AM 3. MR head wo con* [id number] 05/11/2023 4:21 PM FINDINGS: Right common carotid artery: Atherosclerosis with less than 50% narrowing. No occlusion. Waveforms are normal. Peak systolic velocity measures 108.1 cm/s. Right internal carotid artery: Atherosclerosis with less than 50% narrowing. No occlusion. Waveforms are normal. Peak systolic velocity measures 109.2 cm/s. Right ICA/CCA ratio: Within normal limits. Right external carotid artery: Patent origin. Right vertebral artery: Unremarkable. Antegrade flow. Left common carotid artery: Atherosclerosis with less than 50% narrowing. No occlusion. Waveforms are normal. Peak systolic velocity measures 122.4 cm/s. Left internal carotid artery: Atherosclerosis with less than 50% narrowing. No occlusion. Waveforms are normal. Peak systolic velocity measures 121.3 cm/s. Left ICA/CCA ratio: Within normal limits. Left external carotid artery: Patent origin. Left vertebral artery: Unremarkable. Antegrade flow. US/CV carotid duplex BI* [id number] IMPRESSION: Mild xhkvt-usgffwq-mtvm-left carotid arterial stenosis. REFERENCES: SRU CRITERIA. The degree of internal carotid artery stenosis is based on criteria defined by the Society of Radiologists in Ultrasound (SRU). Normal is no stenosis. Mild is less than 50% stenosis. Moderate is 50-69% stenosis. Severe is greater than 69% stenosis to near occlusion. Near occlusion is a markedly narrowed lumen. Total occlusion is no detectable patent lumen.
[2023-05-13] VITALS: BP 150/64; PULSE 70; RESP 18; TEMP 36.8; O2SAT 95
[2023-05-13 04:00] VITALS: BP 153/63; PULSE 62; RESP 17; TEMP 36.6; O2SAT 94
[2023-05-13 05:20] LABS: Basophils % 0.4 %; Eosinophils # 0.2 10^3/uL (0.0-0.8); Eosinophils % 2.9 %; Hematocrit 32.7 % (42.0-52.0); Hemoglobin 10.2 g/dL (11.7-16.6); Lymphocytes # 1.2 10^3/uL (0.8-4.8); Lymphocytes % 21.4 %; Mean Corpuscular HGB Conc 31.2 g/dL (30.0-36.0); Mean Corpuscular Hemoglobin 30.3 pg (28.0-34.0); Monocytes # 0.6 10^3/uL (0.2-0.9); Monocytes % 10.2 %; Neutrophils # 3.57 10^3/uL (1.8-7.7); Neutrophils % 64.7 %; Nucleated Red Blood Cells % 0 %; Platelet Count 121 10^3/cmm (130-400); Red Blood Count 3.37 10^6/uL (4.1-5.3); Red Cell Distribution Width 13.3 % (12.1-15.1); White Blood Count 5.5 10^3/uL (4.0-10.0)
[2023-05-13 05:35] LABS: Alanine Aminotransferase 10 U/L (0-41); Albumin Level 3.4 g/dL (3.5-5.2); Alkaline Phosphatase 64 U/L (40-130); Anion Gap 12.6 (5-19); Aspartate Amino Transferase 21 U/L (0-40); Blood Urea Nitrogen 26 mg/dL (8-23); Calcium 8.3 mg/dL (8.5-10.5); Carbon Dioxide 26 mmol/L (22-29); Chloride 105 mmol/L (98-107); Glucose 83 mg/dL (65-115); Osmolality Calculated 292 mOsm/kg (285-295); Potassium 4.6 mmol/L (3.5-5.1); Sodium 139 mmol/L (136-145); Total Bilirubin 0.4 mg/dL (0.15-1.2); Total Protein 5.4 g/dL (6.6-8.7)
[2023-05-13 08:00] VITALS: BP 104/53; PULSE 64; PULSE 68; RESP 17; TEMP 36.7; O2SAT 94; O2SAT 95
[2023-05-13] MEDS: tamsulosin 0.4 mg Capsule PO (09:15)
[2023-05-13] MEDS: atorvastatin 40 mg Tablet 20 MG PO (09:15)
[2023-05-13] MEDS: aspirin 81 mg EC Tablet PO (09:15)
[2023-05-13] MEDS: finasteride 5 mg Tablet PO (09:15)
[2023-05-13] MEDS: lisinopril 20 mg Tablet PO (09:15)
[2023-05-13] MEDS: PARoxetine 20 mg Tablet PO (09:15)
--- NOTE | 2023-05-13 11:02 | P.DS_ITS ---
Discharge Providers Date of Admission: 05/11/23 16:03 Date of Discharge: May 13, 2023 Attending Provider at Admission: Emmanuel Roblero MD Attending Provider at Discharge: Emmanuel Roblero MD Primary Care Provider: Tamiko Paula MD Diagnoses at Discharge Discharge Diagnosis (1) Stroke-like symptoms: Status: Acute (2) Hypertension: Status: Inactive (3) Bradycardia: Status: Inactive (4) AMS (altered mental status): Status: Acute Reason for Visit Reason for Visit: Dysarthia Discharge Data Studies Completed and Pending Completed Studies During Hospitalization Category Date Time Status CT head wo con* [id number] Stat Cat Scan 05/11/23 11:42 Completed MR head wo con* [id number] Routine MRI 05/11/23 15:03 Completed CV carotid duplex BI* [id number] Routine Ultrasound 05/12/23 21:17 Completed Pending at discharge Category Date Time Status Complete Blood Count w/Auto AM LABS Lab 05/14/23 04:00 Ordered Comprehensive Metabolic Panel AM LABS Lab 05/14/23 04:00 Ordered Radiology Impressions Head CT 05/11/23 11:42 IMPRESSION: 1. No acute intracranial hemorrhage or edema. 2. 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 3. Remote LEFT occipital lobe infarct. Head MRI 05/11/23 15:03 IMPRESSION: No acute intracranial abnormality. Carotid Doppler Study 05/12/23 21:17 IMPRESSION: Mild nyzgn-zwbrbcg-swfh-left carotid arterial stenosis. REFERENCES: SRU CRITERIA. The degree of internal carotid artery stenosis is based on criteria defined by the Society of Radiologists in Ultrasound (SRU). Normal is no stenosis. Mild is less than 50% stenosis. Moderate is 50-69% stenosis. Severe is greater than 69% stenosis to near occlusion. Near occlusion is a markedly narrowed lumen. Total occlusion is no detectable patent lumen. Laboratory Results WBC 5.5 10^3/uL (4.0-10.0) 05/13/23 04:40 RBC 3.37 10^6/uL (4.1-5.3) L 05/13/23 04:40 Hgb 10.2 g/dL (11.7-16.6) L 05/13/23 04:40 Hct 32.7 % (42.0-52.0) L 05/13/23 04:40 MCV 97.0 fl (80-94) H 05/13/23 04:40 MCH 30.3 pg (28.0-34.0) 05/13/23 04:40 MCHC 31.2 g/dL (30.0-36.0) 05/13/23 04:40 RDW 13.3 % (12.1-15.1) 05/13/23 04:40 Plt Count 121 10^3/cmm (130-400) L 05/13/23 04:40 MPV 11.0 fL (7.4-10.4) H 05/13/23 04:40 Neut % (Auto) 64.7 % 05/13/23 04:40 Lymph % (Auto) 21.4 % 05/13/23 04:40 [place] % (Auto) 10.2 % 05/13/23 04:40 Eos % (Auto) 2.9 % 05/13/23 04:40 Baso % (Auto) 0.4 % 05/13/23 04:40 Neut # (Auto) 3.57 10^3/uL (1.8-7.7) 05/13/23 04:40 Lymph # (Auto) 1.2 10^3/uL (0.8-4.8) 05/13/23 04:40 Hernando # (Auto) 0.6 10^3/uL (0.2-0.9) 05/13/23 04:40 Eos # (Auto) 0.2 10^3/uL (0.0-0.8) 05/13/23 04:40 Baso # (Auto) 0.0 10^3/uL (0.0-0.1) 05/13/23 04:40 Nucleated RBC % (auto) 0 % 05/13/23 04:40 Nucleated RBCs # 0.0 /100WBC 05/13/23 04:40 Sodium 139 mmol/L (136-145) 05/13/23 04:40 Potassium 4.6 mmol/L (3.5-5.1) 05/13/23 04:40 Chloride 105 mmol/L (98-107) 05/13/23 04:40 Carbon Dioxide 26 mmol/L (22-29) 05/13/23 04:40 Anion Gap 12.6 (5-19) 05/13/23 04:40 BUN 26 mg/dL (8-23) H 05/13/23 04:40 Creatinine 1.6 mg/dL (0.7-1.2) H 05/13/23 04:40 GFR Calculation Not Reportable 05/13/23 04:40 Glucose 83 mg/dL (65-115) 05/13/23 04:40 POC Glucose 124 mg/dL (70-110) H 05/11/23 11:39 Calculated Osmolality 292 mOsm/kg (285-295) 05/13/23 04:40 Calcium 8.3 mg/dL (8.5-10.5) L 05/13/23 04:40 Magnesium 2.0 mg/dL (1.7-2.3) 05/12/23 03:43 Total Bilirubin 0.4 mg/dL (0.15-1.2) 05/13/23 04:40 AST 21 U/L (0-40) 05/13/23 04:40 ALT 10 U/L (0-41) 05/13/23 04:40 Alkaline Phosphatase 64 U/L (40-130) 05/13/23 04:40 Troponin T Baseline 24 ng/L (0-15) H 05/11/23 11:51 Troponin T 120 Minute 23.17 ng/L (0-15) H 05/11/23 13:50 Delta Troponin T -0.83 ABS# (0-10) L 05/11/23 13:50 Troponin T Hi Sens 6Hr 23.26 ng/L (0-15) H 05/11/23 18:15 Troponin T Hi Sens 6Hr Delta -0.74 ng/L (0-12) L 05/11/23 18:15 NT-Pro-B Natriuret Pep 541 pg/mL (0-450) H 05/11/23 11:51 Total Protein 5.4 g/dL (6.6-8.7) L 05/13/23 04:40 Albumin 3.4 g/dL (3.5-5.2) L 05/13/23 04:40 Globulin 2.0 g/dL (1.3-4.6) 05/13/23 04:40 TSH 3.11 uIU/mL (0.27-4.20) 05/11/23 11:51 Urine Color Yellow (Yellow) 05/12/23 05:30 Urine Appearance Clear (CLEAR) 05/12/23 05:30 Urine pH 5 (5-7) 05/12/23 05:30 Ur Specific [place] 1.010 (1.005-1.030) 05/12/23 05:30 Urine Protein Neg (Negative) 05/12/23 05:30 Urine Glucose (UA) Norm (Normal) 05/12/23 05:30 Urine Ketones Negative (Negative) 05/12/23 05:30 Urine Blood Neg (Negative) 05/12/23 05:30 Urine Nitrate Negative (Negative) 05/12/23 05:30 Urine Bilirubin Neg (Negative) 05/12/23 05:30 Urine Urobilinogen Norm mg/dL (Negative) 05/12/23 05:30 Ur Leukocyte Esterase Negative (Negative) 05/12/23 05:30 Vitals Last Vital Signs Temp 98.1 F 05/13/23 08:00 Pulse 64 05/13/23 08:00 Resp 17 05/13/23 08:00 BP 104/53 05/13/23 08:00 Pulse Ox 95 05/13/23 08:00 O2 Del Method Room Air 05/13/23 08:00 Discharge Plan Discharge Patient Disposition: Home Condition: Stable Prescriptions: New paroxetine HCl 20 mg Tablet 20 mg PO DAILY 30 Days Qty: 30 1RF Continued atorvastatin 20 mg tablet 20 mg PO DAILY baclofen 10 mg tablet See Rx Instructions .ROUTE .COMPLEX Rx Instructions: 10 MG TID AND HS finasteride 5 mg tablet 5 mg PO DAILY hydralazine 100 mg tablet 100 mg PO TID coenzyme Q10 [Co Q-10] 100 mg Capsule 100 mg PO DAILY tamsulosin 0.4 mg Capsule 0.4 mg PO DAILY 30 Days Qty: 30 3RF Aspir-81 81 mg Tablet,Delayed Release (Dr/Ec) 81 mg PO DAILY lisinopril 40 mg Tablet 20 mg PO DAILY saw palmetto 450 mg Capsule 450 mg PO BID Rx Instructions: give with food (meal/snack) ferrous sulfate 27 mg iron Tablet 27 mg PO DAILY Held furosemide 20 mg Tablet 20 mg PO QAM Hold Instructions: Resume on 05/20/23. Discontinued citalopram 10 mg tablet 10 mg PO DAILY losartan 100 mg tablet 100 mg PO DAILY Discharge Orders: Discharge Order (Routine); Ordered 05/13/23 Ordered By: Emmanuel Roblero Referrals: Tamiko Paula MD [Primary Care Provider] - Patient Instructions: Opioid Safety Coding Level of Care Code Acute Code for Chg Fwd Diagnoses Stroke-like symptoms R29.90 Hypertension I10 Bradycardia R00.1 AMS (altered mental status) R41.82
[2023-05-13 11:29] VITALS: BP 121/52; PULSE 52; RESP 16; TEMP 36.4; O2SAT 93
== END 2023-05-13 12:40 | disposition home or self-care (01) ==
LOC: ER 14:36 → MEDSURG 14:56
PROVIDERS: Admitting Provider Internal Medicine; Emergency Provider Emergency Medicine; PCP Family Medicine; Visit Provider Internal Medicine
DX: R29.90 Unspecified symptoms and signs involving the nervous system (principal); R00.1 Bradycardia, unspecified; I10 Essential (primary) hypertension; R41.82 Altered mental status, unspecified; I25.10 Atherosclerotic heart disease of native coronary artery without angina pectoris; N40.0 Benign prostatic hyperplasia without lower urinary tract symptoms; R33.9 Retention of urine, unspecified; Z86.73 Personal history of transient ischemic attack (TIA), and cerebral infarction without residual deficits; F03.90 Unspecified dementia, unspecified severity, without behavioral disturbance, psychotic disturbance, mood disturbance, and anxiety; E78.5 Hyperlipidemia, unspecified; Z87.891 Personal history of nicotine dependence; Z91.81 History of falling; N40.1 Benign prostatic hyperplasia with lower urinary tract symptoms; R33.8 Other retention of urine; I12.9 Hypertensive chronic kidney disease with stage 1 through stage 4 chronic kidney disease, or unspecified chronic kidney disease; N18.9 Chronic kidney disease, unspecified; R20.0 Anesthesia of skin; Z79.82 Long term (current) use of aspirin; D64.9 Anemia, unspecified; D69.6 Thrombocytopenia, unspecified; I35.1 Nonrheumatic aortic (valve) insufficiency; I34.0 Nonrheumatic mitral (valve) insufficiency; I07.1 Rheumatic tricuspid insufficiency; I37.1 Nonrheumatic pulmonary valve insufficiency
CPT/HCPCS: 36415; 36416; 70450; 70551; 80053; 81003; 82962; 83735; 83880; 84443; 84484; 85025; 92523; 92610; 93005; 93270; 93880; 96372; 97530; 99285; G0378; J1650; J2060; J3486

== ENCOUNTER 2023-10-19 03:27 | Inpatient (IN) | payer MEDICARE, SELFPAY ==
[2023-10-19] VITALS (47 sets, daily range): BP systolic 105–183; BP diastolic 64–118; PULSE 43–152; RESP 10–25; TEMP 36.4–37.3; O2SAT 89–100; BMI 23.3
--- NOTE | 2023-10-19 03:17 | PC.NURSE ---
Arrival to ICU: Pt arrived to ICU 2 via [facility] via stretcher @[id number]. Pt reporting 0/10 Chest Pain. Pt is A&Ox2 and has difficulty answering some medical questions. Pt often says, you'll have to ask my about that . Due to this part of the admission was retimed.
--- NOTE | 2023-10-19 03:30 | PM.HP ---
Providers/Chief Complaint Admitting Physician: Frannie Bravo MD Primary Care Provider: Tamiko Paula MD Chief Complaint: Tachycardia History of Present Illness Edmund Villalpando is a 88 year old male with a past medical history of dementia, hypertension, BPH who presented initially to [facility] with chief complaints of chest discomfort. History is obtained by talking to his as patient has dementia but does not recall events leading up to the hospital visit. Per his he was sitting watching TV when suddenly he started complaining of his heart beating very rapidly. He felt as if it was going to jump out of his chest. Patient appeared very uncomfortable at this time got out of his chair and tried to pace about. checked his heart rate and blood pressure at home and found his heart rate to be in the 140s. He was taken to [facility] where EKG showed intermittently A-fib RVR and sinus bradycardia with heart rate down in the 40s. Review of 30-day event monitor that was placed here in April 2023 shows that patient had a baseline rhythm of sinus bradycardia in which she was bradycardic 60% of the time. Maximum heart rate recorded at that time was sinus tachycardia at 131 bpm. 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 A pacemaker with rate control medications was discussed, however at that time patient elected not to have pacemaker placed due to his dementia. At a baseline patient is forgetful, however is independent with his ADLs. He is able to ambulate independently, dresses himself, no current issues with feeding or eating. Per review of labs performed at [facility], patient had an elevated BNP of 9000, he has a recent history of COVID-19 earlier this month, BUN 24, creatinine 1.2, potassium 3.9, sodium 139, normal LFTs, calcium 8.3, WBC 5.7, hemoglobin 9.4, platelet 118. Troponin 0.018, TSH 3.4, magnesium 2.0. Chest x-ray showing mild cardiomegaly but overall no acute cardiopulmonary disease. He has bilateral lower extremity pitting edema. Review of Systems General: Reports: 10 or more systems reviewed and unremarkable except in HPI and below Const: Denies: fever(s), chills or body aches Eyes: Denies: change in vision, blurry vision or photophobia ENMT: Reports: hoarseness; Denies: throat pain, enlarged tonsils, odynophagia or nasal congestion Card: Denies: chest pain, palpitations, irregular heart rhythm, edema, swelling of feet/ankles, lightheadedness, pre-syncope, dyspnea on exertion or orthopnea Resp: Denies: dyspnea, productive cough, non-productive cough, wheezing, stridor, pain on inspiration, change in phlegm color, hemoptysis or chest congestion GI: Denies: abdominal pain, nausea, vomiting, hematemesis, coffee ground emesis, dysphagia, heartburn, diarrhea, constipation, GI cramping, change in stool character, hematochezia or melena : Denies: flank pain, dysuria, urinary frequency, urinary urgency, urinary hesitancy or hematuria Musc: Denies: neck pain, back pain, extremity pain, joint swelling, joint warmth or deformity Neuro: Denies: headache(s), numbness in extremities, weakness in extremities, sensory changes, difficulty walking, frequent falls, dizziness, vertigo, behavioral changes, Slurred speech present or seizure-like activity Psych: Denies: anxiety, depression, suicidal ideation or homicidal ideation Endo: Denies: polyuria, polydipsia, tired all the time, cold intolerance or hot flashes Piyush/Lymph: Denies: easy bruising or easy bleeding Medications/Allergies Home Medications Medication Instructions Recorded Confirmed Last Taken Type atorvastatin 20 mg tablet 20 mg PO DAILY 05/09/23 05/11/23 05/11/23 History baclofen 10 mg tablet See Rx Instructions .Route .COMPLEX 05/09/23 05/11/23 05/11/23 History coenzyme Q10 100 mg capsule (Co 100 mg PO DAILY 05/09/23 05/11/23 05/11/23 History Q-10) finasteride 5 mg tablet 5 mg PO DAILY 05/09/23 05/11/23 05/11/23 History hydralazine 100 mg tablet 100 mg PO TID 05/09/23 05/11/23 05/11/23 History aspirin 81 mg tablet,delayed 81 mg PO DAILY 05/11/23 05/11/23 05/11/23 History release ferrous sulfate 27 mg iron tablet 27 mg PO DAILY 05/11/23 05/11/23 05/11/23 History furosemide 20 mg tablet 20 mg PO QAM 05/11/23 05/11/23 05/11/23 History lisinopril 40 mg tablet 20 mg PO DAILY 05/11/23 05/11/23 05/11/23 History saw palmetto 450 mg capsule 450 mg PO BID 05/11/23 05/11/23 05/11/23 History tamsulosin 0.4 mg capsule 0.4 mg PO DAILY 30 days #30 caps 05/11/23 05/11/23 05/11/23 Rx paroxetine HCl 20 mg tablet 20 mg PO DAILY 30 days #30 tabs 05/13/23 Unknown Rx Allergies Allergy/AdvReac Type Severity Reaction Status Date / Time No Known Allergies Allergy Verified 10/19/23 02:47 PFSH Acute PFSH: Medical History (Updated 10/19/23 @ 04:30 by Frannie Bravo MD) Hypertension Stroke-like symptoms AMS (altered mental status) Dysarthria Acute urinary retention Depression with anxiety CVA (cerebral vascular accident) Hyperlipidemia Dementia BPH (benign prostatic hyperplasia) Bradycardia No significant past medical history Surgical History History of cholecystectomy No significant past surgical history Family History Other Diabetes Social History Smoking and tobacco/nicotine status: former use of tobacco/nicotine Alcohol intake: never Vitals/I&O/Wt Last Vital Signs Temp 97.6 F 10/19/23 02:39 Pulse 120 H 10/19/23 03:15 Resp 17 10/19/23 03:15 BP 148/115 10/19/23 03:15 Pulse Ox 97 10/19/23 03:15 O2 Del Method Room Air 10/19/23 03:15 Weight last 48 hrs Weight 75.841 kg Physical Exam Narrative: General: No acute distress, AO x2 HEENT: PERRLA, pupils bilaterally equal and reactive, pallors not present Chest: Normal vesicular breath sounds, no added sounds, equal good air entry bilaterally CVS: S1-S2 regular, no murmurs, no tachycardia, no gallops, no rubs Abdomen: Soft, nontender, no organomegaly, bowel sounds present Neuro: No focal deficits, no facial deformity, AO x2, power 5/5 in all limbs Extremities: Bilateral lower extremity pitting edema A&P Assessment and plan (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 His estimates that he has been having daily palpitations and chest discomfort episodes. His heart rate is wearing currently between 48 to 140 bpm. Review of telemetry strips shows rhythm to be between sinus tachycardia and A-fib. Normal troponin checked at outside hospital. Electrolytes including potassium and magnesium within range. TSH normal as noted above. Will consult cardiology for tachybradycardia syndrome. Assess for possible initiation of beta-blockers for rate control and assess for possible pacemaker placement. In the interim continue aspirin 81 mg p.o. daily Atropine as needed for heart rate less than 35 for symptomatic bradycardia. At this time patient denies any current complaints of chest pain or dizziness. (2) CHF (congestive heart failure): Acute on chronic diastolic heart failure Last echo from April 2023 without regional wall motion abnormalities, LVEF at 60%, grade 2 diastolic dysfunction with moderately elevated filling pressures. Start Lasix 20 mg IV every 12 hours Closely monitor LEANDRO, kidney function Patient has a baseline history of CKD per , creatinine checked earlier today at 1.2. (3) Hypertension: Continue home dose of lisinopril Plan DVT prophylaxis: Lovenox 40 mg daily DNR/DNI Attestations Medical Necessity Statement*: > 2 midnight admission is anticipated for above defined care Coding Level of Care Code Acute Code for [facility] Diagnoses Tachy-priti syndrome I49.5 CHF (congestive heart failure) I50.9 Hypertension I10
--- NOTE | 2023-10-19 04:29 | ECG_ITS ---
[facility] Test Date: 2023-10-19 Pat Name: Edmund Villalpando Department: Room: [facility] Gender: Male Human Services Case Manager: : 1935 Requested By: Frannie Bravo Order Number: [id number] Saritha MD: Mynor Ying M.D. Measurements Intervals Boles Rate: 45 P: 32 NM: 161 QRS: 40 QRSD: 92 T: 56 QT: 498 QTc: 433 Interpretive Statements SINUS BRADYCARDIA Compared to ECG 05/11/2023 18:16:55 Sinus rhythm no longer present Electronically Signed On 10-19-2023 15:40:32 GLAZE WIPER by Mynor Ying M.D. [email or web address]
[2023-10-19] MEDS: FUROsemide 10 mg/mL SDV 2mL 20 MG IVP ×2 (04:47→16:08)
[2023-10-19] MEDS: enoxaparin 40 mg/0.4 mL Syringe SUBCUT (05:07)
[2023-10-19] MEDS: aspirin 81 mg EC Tablet PO (09:18)
[2023-10-19] MEDS: finasteride 5 mg Tablet PO (09:19)
[2023-10-19] MEDS: pantoprazole DR 40 mg Tablet PO (09:19)
[2023-10-19] MEDS: atorvastatin 40 mg Tablet 20 MG PO (09:19)
[2023-10-19] MEDS: PARoxetine 20 mg Tablet PO (09:19)
[2023-10-19] MEDS: lisinopril 20 mg Tablet PO (09:19)
[2023-10-19] MEDS: tamsulosin 0.4 mg Capsule PO (09:20)
--- NOTE | 2023-10-19 11:37 | PM.CONSULT ---
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 Patient has dementia. Most of the history obtained from . According to his , he was at his baseline health the day before yesterday when suddenly started feeling palpitations. She checked the heart rate and was found to have heart rate of 180 bpm. She called EMS. He was found to have intermittent A-fib with RVR episodes in the ER. Then he will convert back to sinus bradycardia. He was not on any rate limiting medications. According to patient's , several years ago he was recommended to have a pacemaker however then decision was made to not pursue with secondary to dementia. Currently he is in sinus bradycardia with a heart rate of 50 bpm. No pauses or AV block is seen. He has had some episodes of dizziness when he has to sit down if he stands up quickly. Review of Systems Narrative: CONSTITUTIONAL: No fever chills weight loss or gain or night sweats. [] HEENT: Normocephalic, atraumatic.[] RESPIRATORY: No cough, sputum, hemoptysis or wheezing.[] CARDIOVASCULAR: Nochest pain. Has palpitations GI: no nausea vomiting diarrhea. [] WELLNESS ASSISTANT: No numbness, tingling, weakness or loss of function in any part of the body. [] MUSCULOSKELETAL: No knee or joint pain or rashes. [] Medications/Allergies Home Medications Medication Instructions Recorded Confirmed Last Taken Type atorvastatin 20 mg tablet 20 mg PO QPM 05/09/23 10/19/23 05/11/23 History baclofen 10 mg tablet See Rx Instructions .Route .COMPLEX 05/09/23 10/19/23 05/11/23 History finasteride 5 mg tablet 5 mg PO DAILY 05/09/23 10/19/23 05/11/23 History hydralazine 100 mg tablet 100 mg PO TID 05/09/23 10/19/23 05/11/23 History aspirin 81 mg tablet,delayed 81 mg PO DAILY 05/11/23 10/19/23 05/11/23 History release ferrous sulfate 27 mg iron tablet 27 mg PO DAILY 05/11/23 10/19/23 05/11/23 History tamsulosin 0.4 mg capsule 0.4 mg PO DAILY 30 days #30 caps 05/11/23 10/19/23 05/11/23 Rx cholecalciferol (vitamin D3) 25 25 mcg PO DAILY 10/19/23 10/19/23 Unknown History mcg (1,000 unit) capsule (Vitamin D3) citalopram 10 mg tablet 10 mg PO DAILY 10/19/23 10/19/23 Unknown History ginkgo biloba 40 mg tablet 40 mg PO DAILY 10/19/23 10/19/23 Unknown History glucosamine sulf dipot 1 cap PO DAILY 10/19/23 10/19/23 Unknown History chlr,msm,chond 550 mg-C 30 mg-odessa 1 mg capsule (Glucosamine Chondroitin) losartan 100 mg tablet 100 mg PO DAILY 10/19/23 10/19/23 Unknown History vitamin A 2,400 mcg capsule 2,400 mcg PO DAILY 10/19/23 10/19/23 Unknown History vitamin B12 2,500 mcg-folic acid 1 tab PO DAILY 10/19/23 10/19/23 Unknown History 400 mcg disintegrating tablet vitamin E 268 mg (400 unit) capsule 268 mg PO DAILY 10/19/23 10/19/23 Unknown History Allergies Allergy/AdvReac Type Severity Reaction Status Date / Time No Known Allergies Allergy Verified 10/19/23 02:47 Current Medications Generic Name Dose Route Start Last Admin Trade Name Albin PRMary Anne Reason Stop Dose Admin Aspirin 81 mg 10/19/23 09:00 10/19/23 09:18 Aspirin 81 Mg Ec Tablet PO 81 mg DAILY MACI Administration Atorvastatin Calcium 20 mg 10/19/23 09:00 10/19/23 09:19 Atorvastatin 40 Mg Tablet PO 20 mg DAILY MACI Administration Enoxaparin Sodium 40 mg 10/19/23 05:02 10/19/23 05:07 Enoxaparin 40 Mg/0.4 Ml Syringe SUBCUT 40 mg Q24H MACI Administration Finasteride 5 mg 10/19/23 09:00 10/19/23 09:19 Finasteride 5 Mg Tablet PO 5 mg DAILY MACI Administration Furosemide 20 mg 10/19/23 04:00 10/19/23 04:47 Furosemide 10 Mg/Ml Sdv 2ml IVP 20 mg Q12H MACI Administration Lisinopril 20 mg 10/19/23 09:00 10/19/23 09:19 Lisinopril 20 Mg Tablet PO 20 mg DAILY MACI Administration Pantoprazole Sodium 40 mg 10/19/23 09:00 10/19/23 09:[address] 40 Mg Tablet PO 40 mg DAILY MACI Administration Paroxetine HCl 20 mg 10/19/23 09:00 10/19/23 09:19 Paroxetine 20 Mg Tablet PO 20 mg DAILY MACI Administration Tamsulosin HCl 0.4 mg 10/19/23 09:00 10/19/23 09:20 Tamsulosin 0.4 Mg Capsule PO 0.4 mg DAILY MACI Administration PFSH Acute PFSH: Medical History Hypertension Stroke-like symptoms AMS (altered mental status) Dysarthria Acute urinary retention Depression with anxiety CVA (cerebral vascular accident) Hyperlipidemia Dementia BPH (benign prostatic hyperplasia) Bradycardia No significant past medical history Surgical History History of cholecystectomy No significant past surgical history Family History Other Diabetes Social History Smoking and tobacco/nicotine status: former use of tobacco/nicotine Alcohol intake: never Vitals/I&O/Wt Last Vital Signs Temp 97.5 F L 10/19/23 08:00 Pulse 50 L 10/19/23 10:00 Resp 19 H 10/19/23 10:00 BP 105/78 10/19/23 10:00 Pulse Ox 99 10/19/23 10:00 O2 Del Method Room Air 10/19/23 08:00 10/18/23 10/19/23 10/19/23 22:59 06:59 14:59 Intake Total 200 / 200 Output Total 1350 / 1350 550 / 550 Balance -1350 / -1350 -350 / -350 Weight last 48 hrs Weight 167 lb 3.2 oz Weight 167 lb 3.2 oz Physical Exam Narrative: GENERAL: Patient is alert, awake and oriented x3. [] NECK: No jugular vein distension. [] HEENT: No cyanosis. No icterus. No pallor. [] HEART: Regular S1 and S2. No murmur, rub or gallop. [] LUNGS: Clear to auscultate bilaterally. [] CENTRAL NERVOUS SYSTEM: Grossly nonfocal. [] EXTREMITIES: Lower extremities with 1+ edema bilaterally. Data 10/20/23 03:13 10/20/23 03:13 A&P Assessment and plan (1) Tachy-priti syndrome: (2) CHF (congestive heart failure): (3) Hypertension: Plan The patient is atrial fibrillation alternating with sinus bradycardia consistent with sick sinus syndrome. If patient and family want to proceed with aggressive therapies, pacemaker will benefit him as can be put on rate controlling medications. Currently will recommend only using metoprolol as needed if heart rate goes above 120 bpm and patient is symptomatic. ECHO shows diastolic congestive heart failure Low caffeine intake recommended Continue tele monitoring tonight At time of discharge patient will benefit from event monitor and outpatient cardiology follow-up for discussion regarding pacemaker placement. Thank you for involving us with care of this patient. We will continue to follow. Please call with questions Consult Attestations Medical Necessity Statement: Care expected to cross 2 midnights. Coding Level of Care Code Acute Code for [facility] Diagnoses Tachy-priti syndrome I49.5 CHF (congestive heart failure) I50.9 Hypertension I10
--- NOTE | 2023-10-19 13:02 | PC.SOCIAL ---
Pg 2 IMM Explained to pt Pg 2 IMM. No questions voiced. Provided pt a copy. Initialed, dated, & timed a copy & placed in chart.
--- NOTE | 2023-10-19 14:41 | USCV_ITS ---
Edmund Villalpando Age: 88 Gender: M : 1935 Exam Date: 10/19/2023 15:18 Ordering Phys: Mynor Ying M.D ([email or web address]) Technologist: Dean Luu Exam Location[place] [facility] [place]ication: bradycardia BP: 139 / 68 HR: 47 Rhythm: Sinus Technical Quality: Adequate MEASUREMENTS (Male / Female) Normal Values 2D ECHO LVOT Diameter 2.1 cm LV Ejection Fraction MOD 2C 59.2 % LV Ejection Fraction 2C AL 61.2 % LA Diameter 3.8 cm LA Width 5.3 cm LA Height 7.0 cm RA Width 4.2 cm RA Height 6.3 cm Aorta at Sinotubular Diameter 2.7 cm IVC Diameter 1.8 cm M-MODE Aortic Annulus Diameter 3.0 cm LA Ao Ratio MM 1.4 MV E Point Septal Separation 0.6 cm DOPPLER AV Peak Velocity 122.0 cm/s LVOT Peak Velocity 91.0 cm/s AV Area Cont Eq vti 2.0 cm squared AV Area Cont Eq pk 2.5 cm squared MV Peak Velocity 103.0 cm/s MV Area PHT 3.7 cm squared Mitral E to A Ratio 2.4 MV E' Velocity 78.0 cm/s Mitral E to LV E' Septal Ratio 8.1 TR Peak Velocity 341.2 cm/s TR Peak Gradient 46.6 mmHg TR Mean Velocity 262.5 cm/s TR Mean Gradient 34.7 mmHg TR Velocity Time Integral 106.3 cm Right Atrial Pressure 3.0 mmHg Pulmonary Artery Systolic Pressu 49.6 mmHg PV Peak Velocity 82.7 cm/s RV Acceleration Time 0.1 s RV Ejection Time 0.3 s RV AcT/ET 0.4 FINDINGS Left Ventricle Left ventricle is normal in size. LV systolic function is normal with EF 55 to 60%. No regional wall motion abnormalities are seen. Grade 2 diastolic dysfunction Right Ventricle Normal in size and function Right Atrium Dilated Left Atrium Dilated Mitral Valve Structurally normal mitral valve. Mild mitral regurgitation Aortic Valve Structurally normal aortic valve. Mild aortic regurgitation. Tricuspid Valve Mild tricuspid regurgitation. Moderate pulmonary hypertension with RVSP of 50 mmHg. Pulmonic Valve Moderate pulmonic regurgitation Pericardium Normal Aorta Normal in size IVC Appears to be normal CONCLUSIONS LV systolic function is normal with EF 55 to 60%. Grade 2 diastolic dysfunction. Biatrial enlargement Mild mitral regurgitation Mild aortic regurgitation Mild tricuspid regurgitation Moderate pulmonary hypertension Moderate pulmonic regurgitation Compared to prior echocardiogram from 04/2023, no signifncat changes are seenS Mynor Ying MD (Electronically Signed) Final Date: 19 October 2023 17:26 S
--- NOTE | 2023-10-19 17:59 | PC.NURSE ---
Shift Summary: Uneventful shift. Patient rested in bed for most of the day, but was up to a chair twice for meals. Heart rate stayed between 45-55. Patient is alert and can answer person, place, and situation, but not time questions. Repeatedly asks the same questions about what the treatment plan. Ying wants to keep overnight for observation and likely discharge in the morning with outpatient followup. Restarted home dose of hydralazine.
[2023-10-19] MEDS: hyDRALAzine 50 mg Tablet 100 MG PO ×2 (18:08→22:50)
--- NOTE | 2023-10-19 18:13 | PM.PN ---
Vitals/I&O/Wt Last Vital Signs Temp 99.2 F 10/19/23 17:30 Pulse 73 10/19/23 18:00 Resp 20 H 10/19/23 18:00 BP 180/79 10/19/23 18:00 Pulse Ox 96 10/19/23 18:00 O2 Del Method Room Air 10/19/23 18:00 10/19/23 10/19/23 10/19/23 06:59 14:59 22:59 Intake Total 500 / 500 200 / 700 Output Total 1350 / 1350 950 / 950 650 / 1600 Balance -1350 / -1350 -450 / -450 -450 / -900 Weight last 48 hrs Weight 75.841 kg Weight 75.841 kg Physical Exam Const: COMMON NORMALS: patient oriented x3 and alert GENERAL APPEARANCE: cooperative and frail appearing ORIENTATION/CONSCIOUSNESS: Yes awake HENMT: COMMON NORMALS: oropharynx normal Neck/C-Spine: COMMON NORMALS: no JVD Resp: COMMON NORMALS: normal respiratory effort and clear to auscultation bilaterally AUSCULTATION: clear to auscultation bilaterally Cardio: COMMON NORMALS: no JVD, S1 normal heart sound present, S2 normal heart sound present and No murmurs present (Cardio) RATE: bradycardic RHYTHM: abnormal rhythm irregularly irregular HEART SOUNDS: S1 normal heart sound present and S2 normal heart sound present GI: COMMON NORMALS: Normal to inspection, nondistended, normoactive bowel sounds present, Soft to palpation and non-tender PALPATION: Yes Soft to palpation Extremity: COMMON NORMALS: no joint enlargement and no pedal edema Neuro: COMMON NORMALS: patient oriented x3 and moves all extremities SENSORIUM/ORIENTATION: Yes alert Skin: COMMON NORMALS: no rashes or lesions noted GENERAL SKIN EXAM: no rashes or lesions noted A&P Assessment and plan (1) Tachy-priti syndrome: Heart rate is decreasing as low as 30s. Reported tachycardia as well. No syncope. Discussed with cardiology. Further monitoring overnight with telemetry with risk of tachycardia, bradycardia, cardiogenic shock. Will need property assessment monitor at discharge. Consideration of pacemaker. Discussed with block and case maker. 88-year-old male presenting today with palpitations and chest discomfort. His estimates that he has been having daily palpitations and chest discomfort episodes. His heart rate is wearing currently between 48 to 140 bpm. Review of telemetry strips shows rhythm to be between sinus tachycardia and A-fib. Normal troponin checked at outside hospital. Electrolytes including potassium and magnesium within range. TSH normal as noted above. Will consult cardiology for tachybradycardia syndrome. Assess for possible initiation of beta-blockers for rate control and assess for possible pacemaker placement. In the interim continue aspirin 81 mg p.o. daily Atropine as needed for heart rate less than 35 for symptomatic bradycardia. At this time patient denies any current complaints of chest pain or dizziness. (2) CHF (congestive heart failure): Continue Lasix. Reviewed vitals, CBC, CMP. Repeat chemistry. Kidney function. Magnesium. Reviewed echocardiogram. Reviewed cardiology note. Acute on chronic diastolic heart failure Last echo from April 2023 without regional wall motion abnormalities, LVEF at 60%, grade 2 diastolic dysfunction with moderately elevated filling pressures. Start Lasix 20 mg IV every 12 hours monitor for electrolyte abnormality, renal function worsening. Closely monitor LEANDRO, kidney function Patient has a baseline history of CKD per , creatinine checked earlier today at 1.2. (3) Hypertension: Hypertensive, hydralazine added. Monitor blood pressures. Plan DVT prophylaxis: Lovenox 40 mg daily DNR/DNI Attestations Medical Necessity Statement*: Continue admission for assessment management of symptomatic tachybradycardia syndrome. Diagnoses Tachy-priti syndrome I49.5 CHF (congestive heart failure) I50.9 Hypertension I10
--- NOTE | 2023-10-19 22:54 | PC.NURSE ---
Fall Risk: Pt is confused and has attempted to get out of bed by himself multiple times tonight. Frequently re-orienting and re-directing pt. Bed alarm on and alpine patroller socks in place. Door and curtain to room left open for increased observation. Moved pt from ICU 2 to ICU 4 for increased observation. All staff on unit aware pt is a high fall risk. Fall risk sign on display and fall risk band in place. Frequent education fractionation supervisor light use but pt has yet to use the call light. Pt is calm.
[2023-10-20] VITALS (22 sets, daily range): BP systolic 141–177; BP diastolic 65–104; PULSE 46–91; RESP 1–26; TEMP 36.3–36.9; O2SAT 87–98
[2023-10-20 04:18] LABS: Basophils % 0.2 %; Eosinophils # 0.1 10^3/uL (0.0-0.8); Eosinophils % 1.4 %; Hematocrit 27.9 % (37-53); Lymphocytes # 1.1 10^3/uL (0.8-4.8); Lymphocytes % 19.4 %; Mean Corpuscular HGB Conc 31.2 g/dL (30-55); Mean Corpuscular Hemoglobin 30.6 pg (27-33); Mean Corpuscular Volume 98.2 fl (82-101); Mean Platelet Volume 11.3 fL (7.4-10.4); Monocytes # 0.6 10^3/uL (0.2-0.9); Monocytes % 9.7 %; Neutrophils # 3.91 10^3/uL (1.8-7.7); Neutrophils % 68.9 %; Nucleated Red Blood Cells % 0 %; Platelet Count 116 10^3/cmm (157-399); Red Blood Count 2.84 10^6/uL (3.85-5.65); White Blood Count 5.67 10^3/uL (3.29-11.43)
[2023-10-20 04:33] LABS: Magnesium 1.8 mg/dL (1.7-2.3)
[2023-10-20 04:38] LABS: Alanine Aminotransferase 27 U/L (0-41); Albumin Level 3.3 g/dL (3.5-5.2); Alkaline Phosphatase 69 U/L (40-130); Anion Gap 13.7 (5-19); Aspartate Amino Transferase 18 U/L (0-40); Blood Urea Nitrogen 19 mg/dL (8-23); Calcium 8.5 mg/dL (8.5-10.5); Carbon Dioxide 26 mmol/L (22-29); Chloride 107 mmol/L (98-107); Creatinine Clr Calc Pharmacy 37.7582; Globulin 2.4 g/dL (1.3-4.6); Glucose 106 mg/dL (65-115); Osmolality Calculated 299 mOsm/kg (285-295); Potassium 3.7 mmol/L (3.5-5.1); Sodium 143 mmol/L (136-145); Total Bilirubin 0.5 mg/dL (0.15-1.2); Total Protein 5.7 g/dL (6.6-8.7)
[2023-10-20] MEDS: FUROsemide 10 mg/mL SDV 2mL 20 MG IVP (04:56)
[2023-10-20] MEDS: enoxaparin 40 mg/0.4 mL Syringe SUBCUT (04:57)
[2023-10-20 08:06] LABS: Glucose Point of Care 85 mg/dL (70-110)
--- NOTE | 2023-10-20 08:41 | P.PN_ITS ---
Subjective 2 Subjective: Patient is doing well. no chest pain. Vitals/I&O/Wt Last Vital Signs Temp 98.3 F 10/20/23 05:00 Pulse 90 10/20/23 06:00 Resp 16 10/20/23 06:00 BP 172/77 10/20/23 06:00 Pulse Ox 92 10/20/23 06:00 O2 Del Method Room Air 10/20/23 06:00 10/19/23 10/20/23 10/20/23 22:59 06:59 14:59 Intake Total 200 / 700 500 / 1200 Output Total 1250 / 2200 1200 / 3400 Balance -1050 / -1500 -700 / -2200 Weight last 48 hrs Weight 159 lb 8 oz Weight 167 lb 3.2 oz Weight 167 lb 3.2 oz Physical Exam 2 Narrative: GENERAL: Patient is alert, awake and oriented x3. [] NECK: No jugular vein distension. [] HEENT: No cyanosis. No icterus. No pallor. [] HEART: Regular S1 and S2. No murmur, rub or gallop. [] LUNGS: Clear to auscultate bilaterally. [] CENTRAL NERVOUS SYSTEM: Grossly nonfocal. [] EXTREMITIES: Lower extremities with 1+ edema bilaterally. Data 10/20/23 03:13 10/20/23 03:13 A&P Assessment and plan (1) Tachy-priti syndrome: (2) CHF (congestive heart failure): (3) Hypertension: Plan Patient heart rate has stayed stable. Plan for possible pacemaker placement if patient and family wants to proceed as outpatie for sick sinus syndrome. ECHO shows diastolic congestive heart failure Discharge patient home on as needed metoprolol. 30-day event monitor. Thank you for involving us with care of this patient. Please call with questions Attestations 2 Medical Necessity Statement*: Care expected to cross 2 midnights. Coding Level of Care Code Acute Code for [facility] Diagnoses Tachy-priti syndrome I49.5 CHF (congestive heart failure) I50.9 Hypertension I10
[2023-10-20] MEDS: lisinopril 20 mg Tablet PO (08:42)
[2023-10-20] MEDS: PARoxetine 20 mg Tablet PO (08:42)
[2023-10-20] MEDS: hyDRALAzine 50 mg Tablet 100 MG PO (08:42)
[2023-10-20] MEDS: atorvastatin 40 mg Tablet 20 MG PO (08:42)
[2023-10-20] MEDS: aspirin 81 mg EC Tablet PO (08:42)
[2023-10-20] MEDS: pantoprazole DR 40 mg Tablet PO (08:43)
[2023-10-20] MEDS: tamsulosin 0.4 mg Capsule PO (08:43)
[2023-10-20] MEDS: finasteride 5 mg Tablet PO (08:43)
--- NOTE | 2023-10-20 12:32 | PC.NURSE ---
Nurse assisted patient with ambulation around the unit. Walked approximately 200 feet. Heart rate stayed within normal limits. Patient states his current strength is similar to how he feels at home and he feels comfortable going home.
--- NOTE | 2023-10-20 14:21 | PC.NURSE ---
Patient discharged. Ivs removed and intact. Prescriptions sent to [facility]. New medicaiton, discontinued medicaiton, and upcoming appointment education provided to due to patient's mental status (dementia). Patient taken out to vehicle via wheelchair. Belonings sent with patient cluded belt, boots, jeans, and underwear.
--- NOTE | 2023-10-20 22:29 | P.DS_ITS ---
Discharge Providers Date of Admission: 10/19/23 03:27 Date of Discharge: October 20, 2023 Attending Provider at Admission: Frannie Bravo MD Attending Provider at Discharge: Hieu Napier Primary Care Provider: Tamiko Paula MD Diagnoses at Discharge Discharge Diagnosis (1) Tachy-priti syndrome: Status: Acute (2) CHF (congestive heart failure): Status: Acute (3) Hypertension: Status: Acute Reason for Visit Reason for Visit: Tachycardia Brief History: Edmund Villalpando is a 88 year old male with a past medical history of dementia, hypertension, BPH who presented initially to [facility] with chief complaints of chest discomfort. History is obtained by talking to his as patient has dementia but does not recall events leading up to the hospital visit. Per his he was sitting watching TV when suddenly he started complaining of his heart beating very rapidly. He felt as if it was going to jump out of his chest. Patient appeared very uncomfortable at this time got out of his chair and tried to pace about. checked his heart rate and blood pressure at home and found his heart rate to be in the 140s. He was taken to [facility] where EKG showed intermittently A-fib RVR and sinus bradycardia with heart rate down in the 40s. Review of 30-day event monitor that was placed here in April 2023 shows that patient had a baseline rhythm of sinus bradycardia in which she was bradycardic 60% of the time. Maximum heart rate recorded at that time was sinus tachycardia at 131 bpm. 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 A pacemaker with rate control medic ations was discussed, however at that time patient elected not to have pacemaker placed due to his dementia. At a baseline patient is forgetful, however is independent with his ADLs. He is able to ambulate independently, dresses himself, no current issues with feeding or eating. Per review of labs performed at [facility], patient had an elevated BNP of 9000, he has a recent history of COVID-19 earlier this month, BUN 24, creatinine 1.2, potassium 3.9, sodium 139, normal LFTs, calcium 8.3, WBC 5.7, hemoglobin 9.4, platelet 118. Troponin 0.018, TSH 3.4, magnesium 2.0. Chest x-ray showing mild cardiomegaly but overall no acute cardiopulmonary disease. He has bilateral lower extremity pitting edema. Hospital Course Hospital Course His heart rates were monitored during hospitalization. Noted bradycardia into 40s-50s, not lower than that here. Echocardiogram was obtained showing normal e jection fraction, grade 2 diastolic dysfunction. Biatrial enlargement. Mild MVR, mild AVR, mild TVR, moderate pulmonary hypertension, moderate PVR. Received treatment with IV diuretics for decompensated diastolic congestive heart failure. He was assessed by cardiology, and further options for assessment management were discussed with family. Metoprolol recommended to be used only as needed in case heart rates go above 120 bpm and he has palpitations/symptoms. On further reassessment he was doing well, without significant dips in heart rate, significant tachycardia, without history of syncope at current time at discharge cardiology recommends he follow-up for a radio news anchor and follow-up in the office for further assessment and consideration of options and whether there will be need for pacemaker. Physical Exam Narrative: Sitting up in chair. In good spirits. Reports he is doing well, denies any chest pain or pressure, shortness of breath, did not have any issues with transfer or ambulation. Const: COMMON NORMALS: patient oriented x3 and alert GENERAL APPEARANCE: cooperative and frail appearing ORIENTATION/CONSCIOUSNESS: Yes awake HENMT: COMMON NORMALS: oropharynx normal Neck/C-Spine: COMMON NORMALS: no JVD Resp: COMMON NORMALS: normal respiratory effort and clear to auscultation bilaterally AUSCULTATION: clear to auscultation bilaterally Cardio: COMMON NORMALS: no JVD, S1 normal heart sound present, S2 normal heart sound present and No murmurs present (Cardio) RATE: bradycardic RHYTHM: abnormal rhythm irregularly irregular HEART SOUNDS: S1 normal heart sound present and S2 normal heart sound present GI: COMMON NORMALS: Normal to inspection, nondistended, normoactive bowel sounds present, Soft to palpation and non-tender PALPATION: Yes Soft to palpation Extremity: COMMON NORMALS: no joint enlargement GENERAL: Yes edema (Trace) Neuro: COMMON NORMALS: patient oriented x3 and moves all extremities SENSORIUM/ORIENTATION: Yes alert Skin: COMMON NORMALS: no rashes or lesions noted GENERAL SKIN EXAM: no rashes or lesions noted Discharge Data Studies Completed and Pending Completed Studies During Hospitalization Category Date Time Status CV. echo complete* [id number] Routine Ultrasound 10/19/23 14:41 Completed Laboratory Results WBC 5.67 10^3/uL (3.29-11.43) 10/20/23 03:13 RBC 2.84 10^6/uL (3.85-5.65) L 10/20/23 03:13 Hgb 8.70 g/dL (11.27-16.99) L 10/20/23 03:13 Hct 27.9 % (37-53) L 10/20/23 03:13 MCV 98.2 fl (82-101) 10/20/23 03:13 MCH 30.6 pg (27-33) 10/20/23 03:13 MCHC 31.2 g/dL (30-55) 10/20/23 03:13 RDW 15.0 % (12.1-15.1) 10/20/23 03:13 Plt Count 116 10^3/cmm (157-399) L 10/20/23 03:13 MPV 11.3 fL (7.4-10.4) H 10/20/23 03:13 Neut % (Auto) 68.9 % 10/20/23 03:13 Lymph % (Auto) 19.4 % 10/20/23 03:13 [place] % (Auto) 9.7 % 10/20/23 03:13 Eos % (Auto) 1.4 % 10/20/23 03:13 Baso % (Auto) 0.2 % 10/20/23 03:13 Neut # (Auto) 3.91 10^3/uL (1.8-7.7) 10/20/23 03:13 Lymph # (Auto) 1.1 10^3/uL (0.8-4.8) 10/20/23 03:13 [place] # (Auto) 0.6 10^3/uL (0.2-0.9) 10/20/23 03:13 Eos # (Auto) 0.1 10^3/uL (0.0-0.8) 10/20/23 03:13 Baso # (Auto) 0.0 10^3/uL (0.0-0.1) 10/20/23 03:13 Nucleated RBC % (auto) 0 % 10/20/23 03:13 Nucleated RBCs # 0.0 /100WBC 10/20/23 03:13 Sodium 143 mmol/L (136-145) 10/20/23 03:13 Potassium 3.7 mmol/L (3.5-5.1) 10/20/23 03:13 Chloride 107 mmol/L (98-107) 10/20/23 03:13 Carbon Dioxide 26 mmol/L (22-29) 10/20/23 03:13 Anion Gap 13.7 (5-19) 10/20/23 03:13 BUN 19 mg/dL (8-23) 10/20/23 03:13 Creatinine 1.5 mg/dL (0.7-1.2) H 10/20/23 03:13 GFR Calculation Not Reportable 10/20/23 03:13 Glucose 106 mg/dL (65-115) 10/20/23 03:13 POC Glucose 85 mg/dL (70-110) 10/20/23 07:28 Calculated Osmolality 299 mOsm/kg (285-295) H 10/20/23 03:13 Calcium 8.5 mg/dL (8.5-10.5) 10/20/23 03:13 Magnesium 1.8 mg/dL (1.7-2.3) 10/20/23 03:13 Total Bilirubin 0.5 mg/dL (0.15-1.2) 10/20/23 03:13 AST 18 U/L (0-40) 10/20/23 03:13 ALT 27 U/L (0-41) 10/20/23 03:13 Alkaline Phosphatase 69 U/L (40-130) 10/20/23 03:13 Total Protein 5.7 g/dL (6.6-8.7) L 10/20/23 03:13 Albumin 3.3 g/dL (3.5-5.2) L 10/20/23 03:13 Globulin 2.4 g/dL (1.3-4.6) 10/20/23 03:13 Vitals Last Vital Signs Temp 97.4 F L 10/20/23 12:02 Pulse 64 10/20/23 13:35 Resp 22 H 10/20/23 13:35 BP 158/79 10/20/23 13:35 Pulse Ox 97 10/20/23 13:35 O2 Del Method Room Air 10/20/23 12:02 Discharge Plan Discharge Patient Disposition: Home Condition: Stable Prescriptions: New metoprolol tartrate 25 mg tablet 25 mg PO BID PRN (Reason: tacahycardia 120 bpm or more) Qty: 30 0RF Rx Instructions: Take if persistent tachycardia 120 bpm or more Continued atorvastatin 20 mg tablet 20 mg PO QPM baclofen 10 mg tablet See Rx Instructions .ROUTE .COMPLEX Rx Instructions: 10 MG TID AND HS finasteride 5 mg tablet 5 mg PO DAILY hydralazine 100 mg tablet 100 mg PO TID tamsulosin 0.4 mg Capsule 0.4 mg PO DAILY 30 Days Qty: 30 3RF aspirin 81 mg Tablet,Delayed Release (Dr/Ec) 81 mg PO DAILY ferrous sulfate 27 mg iron Tablet 27 mg PO DAILY citalopram 10 mg tablet 10 mg PO DAILY losartan 100 mg tablet 100 mg PO DAILY vitamin A 2,400 mcg Capsule 2,400 mcg PO DAILY vitamin E 268 mg (400 unit) Capsule 268 mg PO DAILY Vitamin D3 25 mcg (1,000 unit) Capsule 25 mcg PO DAILY Glucosamine Chondroitin 550-30-1 mg Capsule 1 cap PO DAILY vitamin L86-[id number] acid 2,500-400 mcg Tablet,Disintegrating 1 tab PO DAILY Discontinued ginkgo biloba 40 mg Tablet 40 mg PO DAILY Rx Instructions: give with meal/snack Discharge Orders: Discharge Order (Routine); Ordered 10/20/23 Ordered By: Hieu Napier Other Ambulatory Orders: MCT/Event Monitor 21 Days (Routine) Timeframe: 2 Days Facility: [facility] - Location: Radiology Ordered By: Hieu Napier Referrals: Tamiko Paula MD [Primary Care Provider] - 4-7 days Deloris Sousa FNP [Nurse Practitioner] - 1 week Patient Instructions: Metoprolol (By mouth), Bradycardia (GEN) Activity Restrictions/Additional Instructions: Monitor heart rates at home, monitor blood pressures. Take metoprolol if your heart rate is staying above 120 bpm or if you are having symptoms with palpitations. Follow-up for event monitor. Follow-up with cardiology in office for reassessment and consideration if pacemaker will be needed. Please call Sunday to schedule [facility] [phone]. Stop ginkgo biloba in case contributing to palpitations, tachycardia episodes. Return to the hospital in case of any worsening or new concerning symptoms. Discharge Attestations Time Spent in Discharge Care*: greater than 30 min Quality Metrics Clinical Quality Measures [ No reported AMI, CVA or VTE this stay] Coding Level of Care Code 75295 Total time (in minutes) for Discharge: 40 Diagnoses Tachy-priti syndrome I49.5 CHF (congestive heart failure) I50.9 Hypertension I10
== END 2023-10-20 14:23 | disposition home or self-care (01) | DRG 291 ==
PROVIDERS: Admitting Provider Student in an Organized Health Care Education/Training Program; PCP Family Medicine; Visit Provider Internal Medicine
DX: I11.0 Hypertensive heart disease with heart failure (principal); I50.33 Acute on chronic diastolic (congestive) heart failure; I49.5 Sick sinus syndrome; I48.91 Unspecified atrial fibrillation; F03.90 Unspecified dementia, unspecified severity, without behavioral disturbance, psychotic disturbance, mood disturbance, and anxiety; N40.0 Benign prostatic hyperplasia without lower urinary tract symptoms; F32.A Depression, unspecified; F41.9 Anxiety disorder, unspecified; E78.5 Hyperlipidemia, unspecified; Z66 Do not resuscitate; I27.20 Pulmonary hypertension, unspecified; Z86.73 Personal history of transient ischemic attack (TIA), and cerebral infarction without residual deficits; Z87.891 Personal history of nicotine dependence; Z79.82 Long term (current) use of aspirin
CPT/HCPCS: 36415; 36416; 80053; 82962; 83735; 85025; 93005; 93306; 96372; 96376; J1650; J1940

== ENCOUNTER → 2023-11-26 14:13 | Outpatient (BNVA) | payer MEDICARE, SELFPAY | PROVIDERS: PCP Family Medicine; Visit Provider Nurse Practitioner Family | DX: I48.0 Paroxysmal atrial fibrillation (principal); Z87.891 Personal history of nicotine dependence | CPT/HCPCS: 99213 ==

== ENCOUNTER 2024-02-13 17:36 | Emergency (ER) | payer MEDICARE, SELFPAY ==
[2024-02-13] VITALS (7 sets, daily range): BP systolic 166–195; BP diastolic 56–81; PULSE 44–58; RESP 17–19; TEMP 37.1; O2SAT 94–98; BMI 22.3
--- NOTE | 2024-02-13 17:40 | ED_ITS ---
HPI - General Adult 2 General: Chief complaint: Weakness Stated complaint: general weakness, fever Time Seen by Provider: 02/13/24 17:37 History of Present Illness: 88-year-old male presents to the emergen cy department from home via EMS personnel. Patient has longstanding history of dementia and is a poor historian. EMS personnel state that the patient's called them as he was unwilling to get out of bed for the previous 2 days and has had significantly decreased urinary output and is significantly high subjective fever. Review of Systems 2 General: Reports: 10 or more systems reviewed and unremarkable except in HPI and below PFSH ED 2 PFSH: Medical History (Updated 02/13/24 @ 21:06 by Dangelo Reyna MD) Atrial fibrillation Hypertension Stroke-like symptoms AMS (altered mental status) Dysarthria Acute urinary retention Depression with anxiety CVA (cerebral vascular accident) Hyperlipidemia Dementia BPH (benign prostatic hyperplasia) Bradycardia No significant past medical history Surgical History History of cholecystectomy No significant past surgical history Family History Other Diabetes Social History Smoking and tobacco/nicotine status: former use of tobacco/nicotine Alcohol intake: never Physical Exam 2 Narrative: EXAM NARRATIVE: Constitutional: the patient appears well nourished and with normal development. Vital signs reviewed as documented. Pleasantly confused, alert to person only. HENMT: Normocephalic, atraumatic. External ears normal appearance without drainage. Nose without drainage, normal appearance. Mucus membranes moist. Neck is supple, No jugular venous distension, trachea is midline, no appreciable carotid bruits. No lymphadenopathy. No meningeal signs. Flexion, extension and lateral rotation is without pain. Eyes: Pupils are equal, round, reactive to light and accommodation. No scleral icterus. Extra-ocular movement are intact. Thorax is symmetrical and with equal rise and fall with respirations. Resp: Lungs are clear to auscultation. No wheezes, rales, crackles or ronchi at present. Cardio: Regular rate and rhythm. Positive S1, S2. No appreciable murmurs, rubs or gallops. GI: Abdominal exam reveals normal bowel sounds to all quadrants. No organomegaly. No obvious palpable masses noted. No hepatomegally appreciated. Soft, non-tender to palpation. Extremity: Extremities are non-edematous and both femoral and pedal pulses are 2+ and equal bilaterally. Moves all extremities well, sensation in all extremities. Neuro: Alert x1- person. Cranial nerves II through XII are grossly intact, there is no focal neurological deficits that I can appreciate at present. Sensation intact to all extremities. 2-point discrimination intact. Light touch intact to all extremities. Motor strength in the upper and lower extremities are equal and bilateral 5/5. Psych: Cooperative, calm, normal thought process, appropriate judgment. Skin: No lesions, rashes. No gross abnormalities noted. Back: Symmetrical, no obvious deformity, No CVA tenderness Course 2 Vital Signs: Vital signs: Vital Signs Temperature 98.7 F 02/13/24 17:39 Pulse Rate 44 L 02/13/24 21:26 Respiratory Rate 17 02/13/24 21:26 Blood Pressure 166/81 02/13/24 21:26 Pulse Oximetry 94 02/13/24 21:26 Oxygen Delivery Me thod Room Air 02/13/24 20:21 MDM - General Adult Medical Decision Making Physical exam completed and documented I did obtain a CBC and a CMP, urinalysis lactic acid procalcitonin and a chest x-ray as well as a CT scan of the head CT scan of the head is without acute findings. Patient's hemoglobin is 10.2 and hematocrit is 32 and is consistent with his previous laboratory evaluations. Platelets are 103. Patient's blood pressure is significantly elevated I have provided him hydralazine and reevaluation demonstrates improved control of his blood pressure. I did discuss the patient findings with his spouse and have advised that I suspect most likely this is a progression of his dementia. Differential Diagnosis CVA, electrolyte abnormality, UTI, pneumonia, progression of dementia. Medical Records I reviewed the patient's medical records. Lab Data I reviewed the patient's lab results. 02/13/24 19:03 02/13/24 19:03 Radiology Impressions Chest X-Ray 02/13/24 17:41 IMPRESSION: 1. No acute cardiopulmonary abnormality. Head CT 02/13/24 19:59 IMPRESSION: 1. No acute intracranial abnormality. If there is clinical concern for acute ischemia beyond the window for neuro intervention, consider correlation with MRI. 2. Focal encephalomalacia of the left occipital lobe. Laboratory Results WBC 4.43 10^3/uL (3.29-11.43) 02/13/24 19:03 RBC 3.33 10^6/uL (3.85-5.65) L 02/13/24 19:03 Hgb 10.20 g/dL (11.27-16.99) L 02/13/24 19:03 Hct 32.0 % (37-53) L 02/13/24 19:03 MCV 96.1 fl (82-101) 02/13/24 19:03 MCH 30.6 pg (27-33) 02/13/24 19: MCHC 31.9 g/dL (30-55) 02/13/24 19:03 RDW 12.1 % (12.1-15.1) 02/13/24 19:03 Plt Count 103 10^3/cmm (157-399) L 02/13/24 19:03 MPV 11.6 fL (7.4-10.4) H 02/13/24 19:03 Neut % (Auto) 80.8 % 02/13/24 19:03 Lymph % (Auto) 12.0 % 02/13/24 19:03 [place] % (Auto) 6.1 % 02/13/24 19:03 Eos % (Auto) 0.2 % 02/13/24 19:03 Baso % (Auto) 0.2 % 02/13/24 19:03 Neut # (Auto) 3.58 10^3/uL (1.8-7.7) 02/13/24 19:03 Lymph # (Auto) 0.5 10^3/uL (0.8-4.8) L 02/13/24 19:03 [place] # (Auto) 0.3 10^3/uL (0.2-0.9) 02/13/24 19:03 Eos # (Auto) 0.0 10^3/uL (0.0-0.8) 02/13/24 19:03 Baso # (Auto) 0.0 10^3/uL (0.0-0.1) 02/13/24 19:03 Nucleated RBC % (auto) 0 % 02/13/24 19: Nucleated RBCs # 0.0 /100WBC 02/13/24 19:03 PT 14.50 SECONDS (12.1-14.9) 02/13/24 19:03 INR 1.09 (0.8-1.2) 02/13/24 19:03 Sodium 140 mmol/L (136-145) 02/13/24 19:03 Potassium 4.4 mmol/L (3.5-5.1) 02/13/24 19:03 Chloride 107 mmol/L (98-107) 02/13/24 19:03 Carbon Dioxide 23 mmol/L (22-29) 02/13/24 19:03 Anion Gap 14.4 (5-19) 02/13/24 19:03 BUN 20 mg/dL (8-23) 02/13/24 19:03 Creatinine 1.5 mg/dL (0.7-1.2) H 02/13/24 19:03 GFR Calculation Not Reportable 02/13/24 19:03 Glucose 121 mg/dL (65-115) H 02/13/24 19:03 POC Glucose 110 mg/dL (70-110) 02/13/24 18:00 Calculated Osmolality 294 mOsm/kg (285-295) 02/13/24 19:03 Lactic Acid 1.2 mmol/L (0.5-2.2) 02/13/24 19:03 Calcium 8.4 mg/dL (8.5-10.5) L 02/13/24 19:03 Total Bilirubin 0.4 mg/dL (0.15-1.2) 02/13/24 19:03 AST 14 U/L (0-40) 02/13/24 19:03 ALT 6 U/L (0-41) 02/13/24 19:03 Alkaline Phosphatase 92 U/L (40-130) 02/13/24 19:03 Total Protein 6.3 g/dL (6.6-8.7) L 02/13/24 19:03 Albumin 3.8 g/dL (3.5-5.2) 02/13/24 19:03 Globulin 2.5 g/dL (1.3-4.6) 02/13/24 19:03 Procalcitonin 0.06 ng/mL (0-0.5) 02/13/24 19:03 Urine Color Yellow (Yellow) 02/13/24 19:43 Urine Appearance Sl hazy (CLEAR) A 02/13/24 19:43 Urine pH 5 (5-7) 02/13/24 19:43 Ur Specific [place] 1.025 (1.005-1.030) 02/13/24 19:43 Urine Protein Trace (Negative) 02/13/24 19:43 Urine Glucose (UA) Norm (Normal) 02/13/24 19:43 Urine Ketones Negative (Negative) 02/13/24 19:43 Urine Blood Neg (Negative) 02/13/24 19:43 Urine Nitrate Negative (Negative) 02/13/24 19:43 Urine Bilirubin Neg (Negative) 02/13/24 19:43 Urine Urobilinogen Norm mg/dL (Negative) 02/13/24 19:43 Ur Leukocyte Esterase Negative (Negative) 02/13/24 19:43 Urine RBC 0-4 /hpf (0-2) H 02/13/24 19:43 Urine WBC None /hpf (0-5) 02/13/24 19:43 Ur Squamous Epith Cells None /hpf (0-5) 02/13/24 19:43 Ur Transition Epith Cell 0-4 /hpf 02/13/24 19:43 Amorphous Sediment 1+ /hpf 02/13/24 19:43 Urine Bacteria Trace /hpf (NONE) 02/13/24 19:43 Urine Mucus None /hpf 02/13/24 19:43 All radiology interpretation(s) finalized by discharge Discharge Plan Discharge Patient Disposition: Home Clinical Impression: Hypertension, uncontrolled, Malaise Dementia Qualifiers: Dementia type: unspecified type Dementia severity: severe Dementia behavioral or psychological symptom: without behavioral, psychotic, or mood disturbance or anxiety Qualified Code(s): F03.C0 - Unspecified dementia, severe, without behavioral disturbance, psychotic disturbance, mood disturbance, and anxiety Prescriptions: No Action atorvastatin 20 mg tablet 20 mg PO QPM baclofen 10 mg tablet See Rx Instructions .ROUTE .COMPLEX Rx Instructions: 10 MG TID AND HS finasteride 5 mg tablet 5 mg PO DAILY hydralazine 100 mg tablet 100 mg PO TID tamsulosin 0.4 mg Capsule 0.4 mg PO DAILY 30 Days Qty: 30 3RF aspirin 81 mg Tablet,Delayed Release (Dr/Ec) 81 mg PO DAILY ferrous sulfate 27 mg iron Tablet 27 mg PO DAILY citalopram 10 mg tablet 10 mg PO DAILY losartan 100 mg tablet 100 mg PO DAILY vitamin A 2,400 mcg Capsule 2,400 mcg PO DAILY vitamin E 268 mg (400 unit) Capsule 268 mg PO DAILY Vitamin D3 25 mcg (1,000 unit) Capsule 25 mcg PO DAILY Glucosamine Chondroitin 550-30-1 mg Capsule 1 cap PO DAILY vitamin G75-awafb acid 2,500-400 mcg Tablet,Disintegrating 1 tab PO DAILY metoprolol tartrate 25 mg tablet 25 mg PO BID PRN (Reason: tacahycardia 120 bpm or more) Qty: 30 0RF Rx Instructions: Take if persistent tachycardia 120 bpm or more Discharge Orders: Discharge ED (Routine); Ordered 02/13/24 Ordered By: Dangelo Reyna Referrals: Tamiko Paula MD [Primary Care Provider] - Discharge Diet: Usual diet Discharge Activity: Resume usual activity Patient Instructions: Opioid Safety, Pain Management Activity Restrictions/Additional Instructions: Activity Restrictions/Additional Instructions: Thank you for choosing [facility] for your healthcare needs today. Please realize that you were seen in the Emergency Department and that we are providing you with an emergency medical screening exam and this may not be a complete and all inclusive of all the testing and or medical work-up that you may need to determine your ailment or severity of your illness. It is very important that you follow-up as instructed with your Primary care provider or Specialist for additional evaluation and to discuss your medical treatment plan. 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
--- NOTE | 2024-02-13 17:41 | XRR_ITS ---
PROCEDURE INFORMATION: Exam: XR Chest Exam date and time: 02/13/2024 6:47 PM Age: 88 years old Clinical indication: Patient HX: T arrives via EMS with complaints generalized weakness. PT told EMS PT has stayed in bed all day. PT is weak and tired. PT also reports that PT is more confused than usual. Blood glucose 133. ; Additional info: Cough TECHNIQUE: Imaging protocol: Radiologic exam of the chest. Views: 1 view. COMPARISON: DX XR chest 1V portable [id number] 10/18/2023 10:35 PM FINDINGS: Lungs: No focal consolidation. Pleural spaces: No evidence of pneumothorax. No evidence of pleural effusion. Heart/Mediastinum: Cardiomediastinal silhouette is within normal limits. Bones/joints: No evidence of acute osseous abnormality. Old posterior 6th rib fracture on the right. XR/XR chest 1V portable [id number] IMPRESSION: 1. No acute cardiopulmonary abnormality.
[2024-02-13 18:03] LABS: Glucose Point of Care 110 mg/dL (70-110)
--- NOTE | 2024-02-13 18:28 | PC.NURSE ---
PATIENT STATES PATIENT HAS DEMENTIA, HE HAS NEGAR-TACHY SYNDROME. PATIENT AT BASELINE HAS TREMORS THAT CAUSES HIS HEART RATE TO INCREASE. PATIENTS STATES HE HAS DECLINED RECENTLY AND FEELS THAT HE IS UNABLE TO DO ADLs.
--- NOTE | 2024-02-13 18:32 | PC.NURSE ---
CLARIFIED THAT PATIENT HAS A TREMOR WHEN WRITING BUT THE FULL BODY TREMOR AND SHAKING IS NEW AND ABNORMAL.
[2024-02-13 19:24] LABS: Basophils % 0.2 %; Eosinophils % 0.2 %; Lymphocytes # 0.5 10^3/uL (0.8-4.8); Mean Corpuscular HGB Conc 31.9 g/dL (30-55); Mean Corpuscular Hemoglobin 30.6 pg (27-33); Mean Corpuscular Volume 96.1 fl (82-101); Mean Platelet Volume 11.6 fL (7.4-10.4); Monocytes # 0.3 10^3/uL (0.2-0.9); Monocytes % 6.1 %; Neutrophils # 3.58 10^3/uL (1.8-7.7); Neutrophils % 80.8 %; Nucleated Red Blood Cells % 0 %; Platelet Count 103 10^3/cmm (157-399); Red Blood Count 3.33 10^6/uL (3.85-5.65); Red Cell Distribution Width 12.1 % (12.1-15.1); White Blood Count 4.43 10^3/uL (3.29-11.43)
[2024-02-13 19:35] LABS: INR 1.09 (0.8-1.2)
[2024-02-13 19:43] LABS: Lactic Sepsis W/Reflex 1.2 mmol/L (0.5-2.2)
[2024-02-13 19:44] LABS: Alanine Aminotransferase 6 U/L (0-41); Albumin Level 3.8 g/dL (3.5-5.2); Alkaline Phosphatase 92 U/L (40-130); Anion Gap 14.4 (5-19); Aspartate Amino Transferase 14 U/L (0-40); Blood Urea Nitrogen 20 mg/dL (8-23); Calcium 8.4 mg/dL (8.5-10.5); Carbon Dioxide 23 mmol/L (22-29); Chloride 107 mmol/L (98-107); Globulin 2.5 g/dL (1.3-4.6); Glucose 121 mg/dL (65-115); Osmolality Calculated 294 mOsm/kg (285-295); Potassium 4.4 mmol/L (3.5-5.1); Sodium 140 mmol/L (136-145); Total Bilirubin 0.4 mg/dL (0.15-1.2); Total Protein 6.3 g/dL (6.6-8.7)
[2024-02-13 19:48] LABS: Procalcitonin 0.06 ng/mL (0-0.5)
--- NOTE | 2024-02-13 19:59 | CTR_ITS ---
PROCEDURE INFORMATION: Exam: CT Head Without Contrast Exam date and time: 02/13/2024 8:08 PM Age: 88 years old Clinical indication: Altered mental status/memory loss; Additional info: AMS TECHNIQUE: Imaging protocol: Computed tomography of the head without contrast. Radiation optimization: All CT scans at this facility use at least one of these dose optimization techniques: automated exposure control; mA and/or kV adjustment per patient size (includes targeted exams where dose is matched to clinical indication); or iterative reconstruction. COMPARISON: MR head wo con* [id number] 05/11/2023 4:21 PM RADIATION DOSE METRICS: Total DLP (mGy-cm): 1114.4 FINDINGS: Brain: No evidence of intra-axial or extra-axial hemorrhage. No mass effect or midline shift. Focal encephalomalacia of the left occipital lobe. Good-white differentiation is otherwise maintained. Basilar cisterns are patent. Cerebral ventricles: No hydrocephalus. Paranasal sinuses: The visualized paranasal sinuses are well aerated. Mastoid air cells: The visualized mastoids and middle ears are clear. Bones/joints: The visualized calvarium and bony orbits are intact. Soft tissues: No gross soft tissue abnormality. CT/CT head wo con* [id number] IMPRESSION: 1. No acute intracranial abnormality. If there is clinical concern for acute ischemia beyond the window for neuro intervention, consider correlation with MRI. 2. Focal encephalomalacia of the left occipital lobe.
[2024-02-13 20:09] LABS: Add Urine Microscopic? YES; Bilirubin Urine Neg (Negative); Blood Urine Neg (Negative); Glucose Urine UA Norm (Normal); Ketones Urine Negative (Negative); Leukocyte Esterase Urine Negative (Negative); Nitrate Urine Negative (Negative); Protein Urine Trace (Negative); Specific Gravity, Urine 1.025 (1.005-1.030); Urine Appearance SL Hazy (CLEAR); Urine Color Yellow (Yellow); Urobilinogen Urine Norm (Negative); pH Urine 5 (5-7)
[2024-02-13 20:16] LABS: Add Urine Culture? No; Amorphous Sediment Urine 1+ /hpf; Bacteria Urine TRACE /hpf; RBC Urine 0-4 /hpf (0-2); Transitional Epi Cells Urine 0-4 /hpf
[2024-02-13] MEDS: hyDRALAzine 20 mg/mL INJ 1 mL 10 MG IVP (20:18)
== END 2024-02-13 21:33 | disposition home or self-care (01) ==
PROVIDERS: Emergency Provider Internal Medicine; PCP Family Medicine
DX: F03.C0 Unspecified dementia, severe, without behavioral disturbance, psychotic disturbance, mood disturbance, and anxiety (principal); I10 Essential (primary) hypertension; R53.81 Other malaise; Z79.82 Long term (current) use of aspirin; Z87.891 Personal history of nicotine dependence; E78.5 Hyperlipidemia, unspecified; Z86.73 Personal history of transient ischemic attack (TIA), and cerebral infarction without residual deficits
CPT/HCPCS: 36415; 36416; 51701; 70450; 71045; 80053; 81001; 82962; 83605; 84145; 85025; 85610; 96374; 99285; J0360

== ENCOUNTER 2024-02-18 06:01 | Emergency (ER) | payer MEDICARE, SELFPAY ==
[2024-02-18 06:03] VITALS: BP 170/116; PULSE 92; RESP 18; O2SAT 96; BMI 22.3
--- NOTE | 2024-02-18 06:07 | ED_ITS ---
HPI - Chest Pain 2 General: Chief Complaint: Chest Pain Stated Complaint: cp, afib Time Seen by Provider: 02/18/24 06:03 Source: patient and EMS Mode of arrival: EMS History of Present Illness: 88-year-old male has a history of A-fib he also has a history of severe dementia per EMS called him he had woke her up this morning at 4 AM time he had chest pain. EMS states they arrived he has not complained of any pain to them he denies any pain to me they state when they did arrive he was in A-fib with RVR heart rate 120s I gave him 20 mg of Cardizem and his heart rate slowed he is resting comfortably is able to tell me his name not able to answer year or where he is at due to his dementia and that is his baseline he denies any abdominal or chest pain. Associated symptoms: Deny abdominal pain, dyspnea, fever(s), nausea or vomiting Review of Systems 2 Const: Denies: fever(s), chills, body aches or change in appetite Eyes: Denies: blurry vision or eye discomfort ENMT: Denies: throat pain or dental pain Card: Reports: chest pain Resp: Denies: dyspnea GI: Denies: abdominal pain, nausea, vomiting or diarrhea Musc: Denies: neck pain or back pain Skin/Breast: Denies: rash Neuro: Denies: headache(s) PFSH ED 2 PFSH: Medical History Atrial fibrillation Hypertension Stroke-like symptoms AMS (altered mental status) Dysarthria Acute urinary retention Depression with anxiety CVA (cerebral vascular accident) Hyperlipidemia Dementia BPH (benign prostatic hyperplasia) Bradycardia No significant past medical history Surgical History History of cholecystectomy No significant past surgical history Family History Other Diabetes Social History Smoking and tobacco/nicotine status: former use of tobacco/nicotine Alcohol intake: never Physical Exam 2 Const: COMMON NORMALS: no acute distress, healthy appearing and alert; negative for patient oriented x3 ORIENTATION/CONSCIOUSNESS: Yes oriented to person; not oriented to place and not oriented to time HENMT: COMMON NORMALS: normocephalic and atraumatic HEAD & SCALP: n ormocephalic and atraumatic Eye: COMMON NORMALS: Equal, round and reactive pupils present and EOMs intact bilaterally PUPIL: Yes Equal, round and reactive pupils present Neck/C-Spine: COMMON NORMALS: full ROM and supple Chest: COMMONS NORMALS: normal inspection of the chest Resp: COMMON NORMALS: normal respiratory effort, No retractions, No use of accessory muscles and clear to auscultation bilaterally AUSCULTATION: clear to auscultation bilaterally Cardio: COMMON NORMALS: No murmurs present (Cardio) RATE: tachycardic R HYTHM: abnormal rhythm irregularly irregular GI: COMMON NORMALS: Normal to inspection, nondistended, normoactive bowel sounds present, Soft to palpation, non-tender and no masses PALPATION: Yes Soft to palpation Extremity: COMMON NORMALS: normal to inspection and full ROM Neuro: COMMON NORMALS: moves all extremities and no focal motor deficits; negative for patient oriented x3 SENSORIUM/ORIENTATION: Yes alert, Yes oriented to person, No oriented to place and No oriented to time Psych: COMMON NORMALS: mental status grossly normal, Normal thought process present and cooperative THOUGHT PROCESS: Normal thought process present Skin: COMMON NORMALS: no rashes or lesions noted and no wounds GENERAL SKIN EXAM: no rashes or lesions noted Course 2 Vital Signs: Vital signs: Vital Signs Pulse Rate 48 L 02/18/24 08:30 Respiratory Rate 20 H 02/18/24 08:10 Blood Pressure 150/72 02/18/24 08:30 Pulse Oximetry 98 02/18/24 08:30 Oxygen Delivery Me thod Room Air 02/18/24 06:44 MDM - Chest Pain Medical Decision Making Patient presents here with chest pain he has been pain-free here he was in A-fib with RVR his heart rates improved troponins here are negative no signs of acute coronary syndrome he stable for discharge follow-up with PCP return if worsening. Medical Records I reviewed the patient's medical records. Lab Data I reviewed the patient's lab results. 02/18/24 06:20 02/18/24 06:22 Radiology Impressions Chest X-Ray 02/18/24 06:09 IMPRESSION: No acute findings. Laboratory Results WBC 5.96 10^3/uL (3.29-11.43) 02/18/24 06:20 RBC 3.46 10^6/uL (3.85-5.65) L 02/18/24 06:20 Hgb 10.60 g/dL (11.27-16.99) L 02/18/24 06:20 Hct 33.7 % (37-53) L 02/18/24 06:20 MCV 97.4 fl (82-101) 02/18/24 06:20 MCH 30.6 pg (27-33) 02/18/24 06:20 MCHC 31.5 g/dL (30-55) 02/18/24 06:20 RDW 12.4 % (12.1-15.1) 02/18/24 06:20 Plt Count 116 10^3/cmm (157-399) L 02/18/24 06:20 MPV 11.4 fL (7.4-10.4) H 02/18/24 06:20 Neut % (Auto) 57.5 % 02/18/24 06:20 Lymph % (Auto) 24.2 % 02/18/24 06:20 [place] % (Auto) 11.1 % 02/18/24 06:20 Eos % (Auto) 6.7 % 02/18/24 06:20 Baso % (Auto) 0.2 % 02/18/24 06:20 Neut # (Auto) 3.43 10^3/uL (1.8-7.7) 02/18/24 06:20 Lymph # (Auto) 1.4 10^3/uL (0.8-4.8) 02/18/24 06:20 [place] # (Auto) 0.7 10^3/uL (0.2-0.9) 02/18/24 06:20 Eos # (Auto) 0.4 10^3/uL (0.0-0.8) 02/18/24 06:20 Baso # (Auto) 0.0 10^3/uL (0.0-0.1) 02/18/24 06:20 Nucleated RBC % (auto) 0 % 02/18/24 06:20 Nucleated RBCs # 0.0 /100WBC 02/18/24 06:20 PT 13.90 SECONDS (12.1-14.9) 02/18/24 06:22 INR 1.04 (0.8-1.2) 02/18/24 06:22 Sodium 139 mmol/L (136-145) 02/18/24 06:22 Potassium 3.6 mmol/L (3.5-5.1) 02/18/24 06:22 Chloride 107 mmol/L (98-107) 02/18/24 06:22 Carbon Dioxide 24 mmol/L (22-29) 02/18/24 06:22 Anion Gap 11.6 (5-19) 02/18/24 06:22 BUN 27 mg/dL (8-23) H 02/18/24 06:22 Creatinine 1.4 mg/dL (0.7-1.2) H 02/18/24 06:22 GFR Calculation Not Reportable 02/18/24 06:22 Glucose 109 mg/dL (65-115) 02/18/24 06:22 Calculated Osmolality 294 mOsm/kg (285-295) 02/18/24 06:22 Calcium 8.4 mg/dL (8.5-10.5) L 02/18/24 06:22 Total Bilirubin 0.2 mg/dL (0.15-1.2) 02/18/24 06:22 AST 10 U/L (0-40) 02/18/24 06:22 ALT < 5 U/L (0-41) 02/18/24 06:22 Alkaline Phosphatase 76 U/L (40-130) 02/18/24 06:22 Troponin T Baseline 51 ng/L (0-15) H 02/18/24 06:22 Troponin T 120 Minute 51.09 ng/L (0-15) H 02/18/24 08:32 Delta Troponin T 0.09 ABS# (0-10) 02/18/24 08:32 Total Protein 6.1 g/dL (6.6-8.7) L 02/18/24 06:22 Albumin 3.4 g/dL (3.5-5.2) L 02/18/24 06:22 Globulin 2.7 g/dL (1.3-4.6) 02/18/24 06:22 All radiology interpretation(s) finalized by discharge EKG Data EKG 1: I personally reviewed and interpreted this EKG as follows: EKG interpretation date: 02/18/24 EKG interpretation time: 06:08 Interpretation: afib hr [address] or t wave abnormalities qrs 95 qtc 412 EKG 2: I personally reviewed and interpreted this EKG as follows: EKG interpretation date: 02/18/24 EKG interpretation time: 08:09 Interpretation: sinus priti hr [address] or t wave abnormalities qrs 87 qtc 454 Discharge Plan Discharge Patient Disposition: Home Clinical Impression: Chest pain Atrial fibrillation Qualifiers: Atrial fibrillation type: paroxysmal Qualified Code(s): I48.0 - Paroxysmal atrial fibrillation Condition: Stable Prescriptions: No Action atorvastatin 20 mg tablet 20 mg PO QPM baclofen 10 mg tablet See Rx Instructions .ROUTE .COMPLEX Rx Instructions: TAKE 10 MG THREE TIMES DAILY AND AT BEDTIME. finasteride 5 mg tablet 5 mg PO DAILY hydralazine 100 mg tablet 100 mg PO TID tamsulosin 0.4 mg Capsule 0.4 mg PO DAILY 30 Days Qty: 30 3RF aspirin 81 mg Tablet,Delayed Release (Dr/Ec) 81 mg PO QAM ferrous sulfate 27 mg iron Tablet 27 mg PO DAILY citalopram 10 mg tablet 10 mg PO DAILY losartan 100 mg tablet 100 mg PO DAILY vitamin A 2,400 mcg Capsule 2,400 mcg PO DAILY vitamin E 268 mg (400 unit) Capsule 268 mg PO DAILY cholecalciferol (vitamin D3) [Vitamin D3] 25 mcg (1,000 unit) Capsule 25 mcg PO DAILY Glucosamine Chondroitin 550-30-1 mg Capsule 1 cap PO DAILY vitamin D47-jiuwy acid 2,500-400 mcg Tablet,Disintegrating 1 tab PO DAILY metoprolol tartrate 25 mg tablet 25 mg PO BID PRN (Reason: tacahycardia 120 bpm or more) Qty: 30 0RF Rx Instructions: Take if persistent tachycardia 120 bpm or more Discharge Orders: Discharge ED (Routine); Ordered 02/18/24 Ordered By: Karuna Curran Referrals: Tamiko Paula MD [Primary Care Provider] - Discharge Diet: Advance as tolerated Discharge Activity: Resume usual activity Patient Instructions: A-fib (Atrial Fibrillation) (ED) Coding Level of Care Code ED Grief Counsellor for Chg Chris
--- NOTE | 2024-02-18 06:08 | ECG_ITS ---
[facility] Test Date: 2024-02-18 Pat Name: Edmund Villalpando Department: Room: Gender: Male [employer] Technician: : 1935 Requested By: Karuna Curran Order Number: [id number] Saritha MD: Kyle Sheldon M.D. Measurements Intervals [place] Rate: 86 P: 0 [place]: 0 QRS: 21 QRSD: 95 T: 56 QT: 368 QTc: 442 Interpretive Statements ATRIAL FIBRILLATION ANTERIOR MYOCARDIAL INFARCTION , OF INDETERMINATE AGE [40+ ms Q WAVE AND/OR ST/T ABNORMALITY IN V3/V4] Compared to ECG 10/19/2023 04:43:30 Myocardial infarct finding now present Sinus bradycardia no longer present Electronically Signed On 02-18-2024 22:48:30 CDT by Kyle Sheldon M.D. [id number]
--- NOTE | 2024-02-18 06:09 | XRR_ITS ---
PROCEDURE INFORMATION: Exam: XR Chest Exam date and time: 02/18/2024 6:13 AM Age: 88 years old Clinical indication: Chest pressure; Patient HX: C/O chest pain. Hypertensive on monitor. ; Additional info: Cp TECHNIQUE: Imaging protocol: Radiologic exam of the chest. Views: 1 view. COMPARISON: CR (CHEST, ) 02/13/2024 6:47 PM FINDINGS: Lungs: Moderate chronic interstitial fibrosis. Hypoventilatory changes in the lower lobes. Pleural spaces: No pneumothorax or failure. Heart/Mediastinum: See Vasculature finding. Vasculature: Borderline cardiomegaly and uncoiling of the thoracic aorta. Bones/joints: Suture anchors in the proximal right humerus. XR/XR chest 1V portable [id number] IMPRESSION: No acute findings.
[2024-02-18] MEDS: labetalol 5 mg/mL SDV 20mL 10 MG IVP (06:22)
[2024-02-18 06:31] LABS: Basophils % 0.2 %; Eosinophils # 0.4 10^3/uL (0.0-0.8); Eosinophils % 6.7 %; Hematocrit 33.7 % (37-53); Lymphocytes # 1.4 10^3/uL (0.8-4.8); Lymphocytes % 24.2 %; Mean Corpuscular HGB Conc 31.5 g/dL (30-55); Mean Corpuscular Hemoglobin 30.6 pg (27-33); Mean Corpuscular Volume 97.4 fl (82-101); Mean Platelet Volume 11.4 fL (7.4-10.4); Monocytes # 0.7 10^3/uL (0.2-0.9); Monocytes % 11.1 %; Neutrophils # 3.43 10^3/uL (1.8-7.7); Neutrophils % 57.5 %; Nucleated Red Blood Cells % 0 %; Platelet Count 116 10^3/cmm (157-399); Red Blood Count 3.46 10^6/uL (3.85-5.65); Red Cell Distribution Width 12.4 % (12.1-15.1); White Blood Count 5.96 10^3/uL (3.29-11.43)
[2024-02-18 06:44] VITALS: BP 175/82; PULSE 75; RESP 16; O2SAT 98
[2024-02-18 06:53] LABS: Troponin(5th) Baseline 51 ng/L (0-15)
[2024-02-18 06:55] LABS: Alanine Aminotransferase < 5 U/L (0-41); Albumin Level 3.4 g/dL (3.5-5.2); Alkaline Phosphatase 76 U/L (40-130); Anion Gap 11.6 (5-19); Aspartate Amino Transferase 10 U/L (0-40); Blood Urea Nitrogen 27 mg/dL (8-23); Calcium 8.4 mg/dL (8.5-10.5); Carbon Dioxide 24 mmol/L (22-29); Chloride 107 mmol/L (98-107); Globulin 2.7 g/dL (1.3-4.6); Glucose 109 mg/dL (65-115); Osmolality Calculated 294 mOsm/kg (285-295); Potassium 3.6 mmol/L (3.5-5.1); Sodium 139 mmol/L (136-145); Total Bilirubin 0.2 mg/dL (0.15-1.2); Total Protein 6.1 g/dL (6.6-8.7)
[2024-02-18 07:03] LABS: Creatinine Clr Calc Pharmacy 39.7554
[2024-02-18 07:40] LABS: INR 1.04 (0.8-1.2)
--- NOTE | 2024-02-18 08:09 | ECG_ITS ---
[facility] Test Date: 2024-02-18 Pat Name: Edmund Villalpando Department: Room: Gender: Male Service Planner: : 1935 Requested By: Karuna Curran Order Number: [id number] Saritha MD: Kyle Sheldon M.D. Measurements Intervals [place] Rate: 44 P: 47 ND: 161 QRS: 16 QRSD: 87 T: 70 QT: 501 QTc: 433 Interpretive Statements SINUS BRADYCARDIA MODERATE T-WAVE ABNORMALITY, CONSIDER ANTERIOR ISCHEMIA [-0.1+ mV T-WAVE IN V3/V4] Compared to ECG 02/18/2024 06:08:01 T-wave abnormality now present Possible ischemia now present Atrial fibrillation no longer present Myocardial infarct finding no longer present Electronically Signed On 02-18-2024 22:52:28 CDT by Kyle Sheldon M.D. [id number]
[2024-02-18 08:10] VITALS: BP 176/73; PULSE 46; RESP 20; O2SAT 96
[2024-02-18 08:30] VITALS: BP 150/72; PULSE 48; O2SAT 98
[2024-02-18 09:13] LABS: Troponin 5 2HR 51.09 ng/L (0-15); Troponin 5 2HR Delta 0.09 ABS# (0-10)
[2024-02-18 09:28] VITALS: BP 179/72; PULSE 50; O2SAT 98
== END 2024-02-18 09:29 | disposition home or self-care (01) ==
PROVIDERS: Emergency Provider Emergency Medicine; PCP Family Medicine
DX: R07.9 Chest pain, unspecified (principal); I48.0 Paroxysmal atrial fibrillation; Z79.82 Long term (current) use of aspirin; Z87.891 Personal history of nicotine dependence; I10 Essential (primary) hypertension; Z86.73 Personal history of transient ischemic attack (TIA), and cerebral infarction without residual deficits; E78.5 Hyperlipidemia, unspecified; F03.90 Unspecified dementia, unspecified severity, without behavioral disturbance, psychotic disturbance, mood disturbance, and anxiety
CPT/HCPCS: 36415; 71045; 80053; 84484; 85025; 85610; 93005; 96374; 99285; J3490

== ENCOUNTER 2024-10-24 16:13 | Emergency (ER) | payer MEDICARE, SELFPAY ==
[2024-10-24] VITALS (7 sets, daily range): BP systolic 172–215; BP diastolic 69–112; PULSE 41–51; RESP 18–19; TEMP 36.7; O2SAT 98–99
--- NOTE | 2024-10-24 16:16 | XRR_ITS ---
PROCEDURE INFORMATION: Exam: XR Chest Exam date and time: 10/24/2024 4:39 PM Age: 89 years old Clinical indication: Pain; Angina pectoris; Additional info: Chest pain TECHNIQUE: Imaging protocol: Radiologic exam of the chest. Views: 1 view. COMPARISON: CR XR chest 1V portable [id number] 02/18/2024 6:13 AM FINDINGS: Lungs: Both lungs demonstrate diffuse interstitial coarsening which is felt to be chronic. No lung mass or infiltrate. Pleural spaces: Unremarkable. No pleural effusion. No pneumothorax. Heart/Mediastinum: Mild cardiomegaly is noted. Bones/joints: Unremarkable. XR/XR chest 1V portable [id number] IMPRESSION: No acute findings.
--- NOTE | 2024-10-24 16:20 | ECG_ITS ---
[facility] Date: 2024-[facility]-24 Pat Name: Edmund Villalpando Department: Room: Gender: Male Tug Master: : 1935 Requested By: France Parker Order Number: [id number] Saritha MD: Kyle Sheldon M.D. Measurements Intervals [place] Rate: 47 P: 18 CO: 151 QRS: 11 QRSD: 91 T: 48 QT: 484 QTc: 431 Interpretive Statements SINUS BRADYCARDIA NONSPECIFIC T-WAVE ABNORMALITY Compared to ECG 02/18/2024 08:09:45 Possible ischemia no longer present T-wave abnormality still present Electronically Signed On 10-24-2024 21:35:41 MAT MACHINE TENDER by Kyle Sheldon M.D. [email or web address]
--- NOTE | 2024-10-24 17:01 | ED_ITS ---
Documented by User: Kwadwo Smith 10/24/24 17:55 HPI - Chest Pain 2 General: Chief Complaint: Chest Pain Stated Complaint: chest pain Time Seen by Provider: 10/24/24 16:33 History of Present Illness: 89-year-old male presents to the ER tapan f complaint of having right-sided chest pain has been ongoing since early this morning. The patient denies that the pain is pleuritic in nature reports nonreproducible he denies any prior history of any cardiac issues. The patient presents to the ER due to his 's concerns. The patient reports no recent medication changes reports no prior cardiac stenting or open heart surgery he reports that the pain is pressure is constant in nature with no radiation. Associated symptoms: Deny abdominal pain, dyspnea, fever(s), nausea, palpitations or vomiting Related Data Home Medications Medication Instructions Recorded Confirmed atorvastatin 20 mg tablet 20 mg PO QPM 05/09/23 02/18/24 baclofen 10 mg tablet See Rx Instructions .Route .COMPLEX 05/09/23 02/18/24 finasteride 5 mg tablet 5 mg PO DAILY 05/09/23 02/18/24 hydralazine 100 mg tablet 100 mg PO TID 05/09/23 02/18/24 aspirin 81 mg tablet,delayed 81 mg PO QAM 05/11/23 02/18/24 release ferrous sulfate 27 mg iron tablet 27 mg PO DAILY 05/11/23 02/18/24 cholecalciferol (vitamin D3) 25 25 mcg PO DAILY 10/19/23 02/18/24 mcg (1,000 unit) capsule (Vitamin D3) citalopram 10 mg tablet 10 mg PO DAILY 10/19/23 02/18/24 glucosamine sulf dipot 1 cap PO DAILY 10/19/23 02/18/24 chlr,msm,chond 550 mg-C 30 mg-odessa 1 mg capsule (Glucosamine Chondroitin) losartan 100 mg tablet 100 mg PO DAILY 10/19/23 02/18/24 vitamin A 2,400 mcg capsule 2,400 mcg PO DAILY 10/19/23 02/18/24 vitamin B12 2,500 mcg-folic acid 1 tab PO DAILY 10/19/23 02/18/24 400 mcg disintegrating tablet vitamin E 268 mg (400 unit) capsule 268 mg PO DAILY 10/19/23 02/18/24 Previous Rx's Medication Instructions Recorded tamsulosin 0.4 mg capsule 0.4 mg PO DAILY 30 days #30 caps 05/11/23 metoprolol tartrate 25 mg tablet 25 mg PO BID PRN tacahycardia 120 10/20/23 bpm or more #30 tabs Allergies Allergy/AdvReac Type Severity Reaction Status Date / Time No Known Allergies Allergy Verified 02/18/24 06:10 Review of Systems 2 General: Reports: 10 or more systems reviewed and unremarkable except in HPI and below Const: Denies: fever(s), chills, fatigue or malaise Eyes: Denies: change in vision or blurry vision Card: Reports: chest pain; Denies: palpitations Resp: Denies: dyspnea or productive cough GI: Denies: abdominal pain, nausea or vomiting : Denies: flank pain Musc: Denies: extremity pain or extremity swelling Skin/Breast: Denies: rash or pruritus Neuro: Denies: headache(s) Psych: Denies: anxiety or depression Piyush/Lymph: Denies: easy bleeding All/Imm: Denies: urticaria, throat swelling or facial swelling PFSH ED 2 PFSH: Medical History Atrial fibrillation Hypertension Stroke-like symptoms AMS (altered mental status) Dysarthria Acute urinary retention Depression with anxiety CVA (cerebral vascular accident) Hyperlipidemia Dementia BPH (benign prostatic hyperplasia) Bradycardia No significant past medical history Surgical History History of cholecystectomy No significant past surgical history Family History Other Diabetes Social History Smoking and tobacco/nicotine status: former use of tobacco/nicotine Alcohol intake: never Physical Exam 2 Narrative: EXAM NARRATIVE: Patient appears somewhat anxious on exam however appears in no obvious acute distress. Const: COMMON NORMALS: no acute distress, patient oriented x3 and healthy appearing HENMT: COMMON NORMALS: normocephalic and atraumatic HEAD & SCALP: n ormocephalic and atraumatic Eye: COMMON NORMALS: Equal, round and reactive pupils present and EOMs intact bilaterally PUPIL: Yes Equal, round and reactive pupils present Neck/C-Spine: COMMON NORMALS: full ROM, supple and no JVD Lymph: LYMPHATIC: no lymphadenopathy noted Chest: COMMONS NORMALS: normal inspection of the chest and normal palpation of entire chest wall Resp: COMMON NORMALS: normal respiratory effort, No retractions and clear to auscultation bilaterally EFFORT & INSPECTION: Yes able to speak in complete sentences and Yes symmetric chest movement AUSCULTATION: clear to auscultation bilaterally Cardio: COMMON NORMALS: no JVD, regular rate and regular rhythm RATE: r egular rate RHYTHM: regular rhythm GI: COMMON NORMALS: Normal to inspection, nondistended, normoactive bowel sounds present, Soft to palpation and non-tender INSPECTION: Yes normal to inspection PALPATION: Yes Soft to palpation : COMMON NORMALS: Yes no CVA tenderness BLADDER/KIDNEY EXAM: Yes no CVA tenderness Back/Pelvis: COMMON NORMALS: no CVA tenderness Extremity: COMMON NORMALS: normal to inspection and full ROM Neuro: COMMON NORMALS: patient oriented x3, CN's II-XII intact bilaterally, moves all extremities and no focal motor deficits Psych: COMMON NORMALS: mental status grossly normal, Normal thought process present, cooperative and normal affect THOUGHT PROCESS: Normal thought process present Skin: COMMON NORMALS: no rashes or lesions noted GENERAL SKIN EXAM: no rashes or lesions noted Course 2 Vital Signs: Vital signs: Vital Signs Temperature 98.1 F 10/24/24 16:24 Pulse Rate 44 L 10/24/24 19:44 Respiratory Rate 19 H 10/24/24 19:44 Blood Pressure 193/78 10/24/24 19:44 Pulse Oximetry 99 10/24/24 19:44 Oxygen Delivery Me thod Room Air 10/24/24 16:24 MDM - Chest Pain Medical Decision Making Due to patient's symptoms and condition basic cardiac workup workup will be obtained on exam patient is somewhat bradycardic with a sinus bradycardia rate of 47 will continue to follow per patient's medical record she does have a known history of atrial fibrillation he is written for metoprolol for also history of high blood pressure he is on hydralazine will continue to follow anticipate signout [place] [address] Ballesteros. Lab Data 10/24/24 17:32 10/24/24 17:32 Radiology Impressions Chest X-Ray 10/24/24 16:16 IMPRESSION: No acute findings. Laboratory Results WBC 6.48 10^3/uL (3.29-11.43) 10/24/24 17: RBC 3.09 10^6/uL (3.85-5.65) L 10/24/24 17:32 Hgb 9.60 g/dL (11.27-16.99) L 10/24/24 17:32 Hct 30.6 % (37-53) L 10/24/24 17:32 MCV 99.0 fl (82-101) 10/24/24 17:32 MCH 31.1 pg (27-33) 10/24/24 17: MCHC 31.4 g/dL (30-55) 10/24/24 17:32 RDW 12.9 % (12.1-15.1) 10/24/24 17: Plt Count 111 10^3/cmm (157-399) L 10/24/24 17: MPV 11.0 fL (7.4-10.4) H 10/24/24 17:32 Neut % (Auto) 71.5 % 10/24/24 17:32 Lymph % (Auto) 16.8 % 10/24/24 17:32 Thomas % (Auto) 8.8 % 10/24/24 17:32 Eos % (Auto) 2.2 % 10/24/24 17:32 Baso % (Auto) 0.2 % 10/24/24:32 Neut # (Auto) 4.64 10^3/uL (1.8-7.7) 10/24/24 17:32 Lymph # (Auto) 1.1 10^3/uL (0.8-4.8) 10/24/24 17:32 Thomas # (Auto) 0.6 10^3/uL (0.2-0.9) 10/24/24 17:32 Eos # (Auto) 0.1 10^3/uL (0.0-0.8) 10/24/24 17:32 Baso # (Auto) 0.0 10^3/uL (0.0-0.1) 10/24/24 17: Nucleated RBC % (auto) 0 % 10/24/24 17: Nucleated RBCs # 0.0 /100WBC 10/24/24 17: PT 14.60 SECONDS (12.1-14.9) 10/24/24 17:32 INR 1.07 (0.8-1.2) 10/24/24 17:32 APTT 27.2 SECONDS (23.9-36.7) 10/24/24 17:32 Sodium 145 mmol/L (136-145) 10/24/24 17:32 Potassium 4.1 mmol/L (3.5-5.1) 10/24/24 17:32 Chloride 109 mmol/L (98-107) H 10/24/24 17:32 Carbon Dioxide 26 mmol/L (22-29) 10/24/24 17:32 Anion Gap 14.1 (5-19) 10/24/24 17:32 BUN 29 mg/dL (8-23) H 10/24/24 17:32 Creatinine 1.6 mg/dL (0.7-1.2) H 10/24/24 17:32 GFR Calculation Not Reportable 10/24/24 17:32 Glucose 101 mg/dL (65-115) 10/24/24 17:32 Calculated Osmolality 306 mOsm/kg (285-295) H 10/24/24 17:32 Calcium 9.0 mg/dL (8.5-10.5) 10/24/24 17:32 Total Bilirubin 0.3 mg/dL (0.15-1.2) 10/24/24 17:32 AST 15 U/L (0-40) 10/24/24 17:32 ALT 7 U/L (0-41) 10/24/24 17:32 Alkaline Phosphatase 58 U/L (40-130) 10/24/24 17:32 Troponin T Baseline 30 ng/L (0-15) H 10/24/24 17:32 Troponin T 120 Minute 28.69 ng/L (0-15) H 10/24/24 19:29 Delta Troponin T -1.31 ABS# (0-10) L 10/24/24 19:29 NT-Pro-B Natriuret Pep 2113 pg/mL (0-450) H 10/24/24 17:32 Total Protein 6.0 g/dL (6.6-8.7) L 10/24/24 17:32 Albumin 3.8 g/dL (3.5-5.2) 10/24/24 17:32 Globulin 2.2 g/dL (1.3-4.6) 10/24/24 17:32 Lipase 48 U/L (13-60) 10/24/24 17:32 All radiology interpretation(s) finalized by discharge Discharge Plan Discharge Patient Disposition: Home Clinical Impression: Chest pain Qualifiers: Chest pain type: other chest pain Qualified Code(s): R07.89 - Other chest pain Condition: Stable Prescriptions: No Action atorvastatin 20 mg tablet 20 mg PO QPM baclofen 10 mg tablet See Rx Instructions .ROUTE .COMPLEX Rx Instructions: TAKE 10 MG THREE TIMES DAILY AND AT BEDTIME. finasteride 5 mg tablet 5 mg PO DAILY hydralazine 100 mg tablet 100 mg PO TID tamsulosin 0.4 mg Capsule 0.4 mg PO DAILY 30 Days Qty: 30 3RF aspirin 81 mg Tablet,Delayed Release (Dr/Ec) 81 mg PO QAM ferrous sulfate 27 mg iron Tablet 27 mg PO DAILY citalopram 10 mg tablet 10 mg PO DAILY losartan 100 mg tablet 100 mg PO DAILY vitamin A 2,400 mcg Capsule 2,400 mcg PO DAILY vitamin E 268 mg (400 unit) Capsule 268 mg PO DAILY cholecalciferol (vitamin D3) [Vitamin D3] 25 mcg (1,000 unit) Capsule 25 mcg PO DAILY Glucosamine Chondroitin 550-30-1 mg Capsule 1 cap PO DAILY vitamin [id number] acid 2,500-400 mcg Tablet,Disintegrating 1 tab PO DAILY metoprolol tartrate 25 mg tablet 25 mg PO BID PRN (Reason: tacahycardia 120 bpm or more) Qty: 30 0RF Rx Instructions: Take if persistent tachycardia 120 bpm or more Discharge Orders: Discharge ED (Routine); Ordered 10/24/24 Ordered By: Allen Law Referrals: Nehal Cormier NP [Primary Care Provider] - Discharge Diet: Advance as tolerated Discharge Activity: Increase activity as tolerated Patient Instructions: Opioid Safety, Pain Management Activity Restrictions/Additional Instructions: Follow-up with your primary care doctor for low heart rate that we noticed here in the emergency department. Additionally, follow-up with your primary care doctor for further management of chest pain. Please return to the emergency department with any new or worsening symptoms. Coding Level of Care Code ED Batch Unloader for Ismaelg Hadleyd Documented by User: Allen Ballesteros DO 10/24/24 20:27 HPI - Chest Pain 2 General: Chief Complaint: Chest Pain Stated Complaint: chest pain Time Seen by Provider: 10/24/24 16:33 Related Data Home Medications Medication Instructions Recorded Confirmed atorvastatin 20 mg tablet 20 mg PO QPM 05/09/23 02/18/24 baclofen 10 mg tablet See Rx Instructions .Route .COMPLEX 05/09/23 02/18/24 finasteride 5 mg tablet 5 mg PO DAILY 05/09/23 02/18/24 hydralazine 100 mg tablet 100 mg PO TID 05/09/23 02/18/24 aspirin 81 mg tablet,delayed 81 mg PO QAM 05/11/23 02/18/24 release ferrous sulfate 27 mg iron tablet 27 mg PO DAILY 05/11/23 02/18/24 cholecalciferol (vitamin D3) 25 25 mcg PO DAILY 10/19/23 02/18/24 mcg (1,000 unit) capsule (Vitamin D3) citalopram 10 mg tablet 10 mg PO DAILY 10/19/23 02/18/24 glucosamine sulf dipot 1 cap PO DAILY 10/19/23 02/18/24 chlr,msm,chond 550 mg-C 30 mg-odessa 1 mg capsule (Glucosamine Chondroitin) losartan 100 mg tablet 100 mg PO DAILY 10/19/23 02/18/24 vitamin A 2,400 mcg capsule 2,400 mcg PO DAILY 10/19/23 02/18/24 vitamin B12 2,500 mcg-folic acid 1 tab PO DAILY 10/19/23 02/18/24 400 mcg disintegrating tablet vitamin E 268 mg (400 unit) capsule 268 mg PO DAILY 10/19/23 02/18/24 Previous Rx's Medication Instructions Recorded tamsulosin 0.4 mg capsule 0.4 mg PO DAILY 30 days #30 caps 05/11/23 metoprolol tartrate 25 mg tablet 25 mg PO BID PRN tacahycardia 120 10/20/23 bpm or more #30 tabs Allergies Allergy/AdvReac Type Severity Reaction Status Date / Time No Known Allergies Allergy Verified 02/18/24 06:10 PFS ED 2 PFSH: Medical History Atrial fibrillation Hypertension Stroke-like symptoms AMS (altered mental status) Dysarthria Acute urinary retention Depression with anxiety CVA (cerebral vascular accident) Hyperlipidemia Dementia BPH (benign prostatic hyperplasia) Bradycardia No significant past medical history Surgical History History of cholecystectomy No significant past surgical history Family History Other Diabetes Social History Smoking and tobacco/nicotine status: former use of tobacco/nicotine Alcohol intake: never Course 2 Vital Signs: Vital signs: Vital Signs Temperature 98.1 F 10/24/24 16:24 Pulse Rate 44 L 10/24/24 19:44 Respiratory Rate 19 H 10/24/24 19:44 Blood Pressure 193/78 10/24/24 19:44 Pulse Oximetry 99 10/24/24 19:44 Oxygen Delivery Me thod Room Air 10/24/24 16:24 MDM - Chest Pain Medical Decision Making Due to patient's symptoms and condition basic cardiac workup workup will be obtained on exam patient is somewhat bradycardic with a sinus bradycardia rate of 47 will continue to follow per patient's medical record she does have a known history of atrial fibrillation he is written for metoprolol for also history of high blood pressure he is on hydralazine will continue to follow anticipate signout at [address] Ballesteros. Assumed care from Dr. Gandhi. Discussed with the patient the fact that his initial troponins were elevated but the repeat showed a decrease in troponin level. Additionally, his EKG did not show any signs of ST segment elevation. Patient did have bradycardia noted on EKG and telemetry. Patient will follow-up with his well blower and primary care physician for further management with this. Additionally, he does have anemia on his laboratory evaluation that could be follow-up as an outpatient as well. Return precautions were discussed and the patient was discharged home in good condition. Lab Data 10/24/24 17:32 10/24/24 17:32 Radiology Impressions Chest X-Ray 10/24/24 16:16 IMPRESSION: No acute findings. Laboratory Results WBC 6.48 10^3/uL (3.29-11.43) 10/24/24 17:32 RBC 3.09 10^6/uL (3.85-5.65) L 10/24/24 17:32 Hgb 9.60 g/dL (11.27-16.99) L 10/24/24 17:32 Hct 30.6 % (37-53) L 10/24/24 17:32 MCV 99.0 fl (82-101) 10/24/24 17:32 MCH 31.1 pg (27-33) 10/24/24 17:32 MCHC 31.4 g/dL (30-55) 10/24/24 17:32 RDW 12.9 % (12.1-15.1) 10/24/24 17: Plt Count 111 10^3/cmm (157-399) L 10/24/24 17:32 MPV 11.0 fL (7.4-10.4) H 10/24/24 17:32 Neut % (Auto) 71.5 % 10/24/24 17:32 Lymph % (Auto) 16.8 % 10/24/24 17:32 Thomas % (Auto) 8.8 % 10/24/24 17:32 Eos % (Auto) 2.2 % 10/24/24 17:32 Baso % (Auto) 0.2 % 10/24/24 17:32 Neut # (Auto) 4.64 10^3/uL (1.8-7.7) 10/24/24 17:32 Lymph # (Auto) 1.1 10^3/uL (0.8-4.8) 10/24/24 17:32 Thomas # (Auto) 0.6 10^3/uL (0.2-0.9) 10/24/24 17:32 Eos # (Auto) 0.1 10^3/uL (0.0-0.8) 10/24/24 17:32 Baso # (Auto) 0.0 10^3/uL (0.0-0.1) 10/24/24 17:32 Nucleated RBC % (auto) 0 % 10/24/24 17: Nucleated RBCs # 0.0 /100WBC 10/24/24 17: PT 14.60 SECONDS (12.1-14.9) 10/24/24 17:32 INR 1.07 (0.8-1.2) 10/24/24 17:32 APTT 27.2 SECONDS (23.9-36.7) 10/24/24 17:32 Sodium 145 mmol/L (136-145) 10/24/24 17:32 Potassium 4.1 mmol/L (3.5-5.1) 10/24/24 17:32 Chloride 109 mmol/L (98-107) H 10/24/24 17:32 Carbon Dioxide 26 mmol/L (22-29) 10/24/24 17:32 Anion Gap 14.1 (5-19) 10/24/24 17:32 BUN 29 mg/dL (8-23) H 10/24/24 17:32 Creatinine 1.6 mg/dL (0.7-1.2) H 10/24/24 17:32 GFR Calculation Not Reportable 10/24/24 17:32 Glucose 101 mg/dL (65-115) 10/24/24 17:32 Calculated Osmolality 306 mOsm/kg (285-295) H 10/24/24 17:32 Calcium 9.0 mg/dL (8.5-10.5) 10/24/24 17:32 Total Bilirubin 0.3 mg/dL (0.15-1.2) 10/24/24 17:32 AST 15 U/L (0-40) 10/24/24 17:32 ALT 7 U/L (0-41) 10/24/24 17:32 Alkaline Phosphatase 58 U/L (40-130) 10/24/24 17:32 Troponin T Baseline 30 ng/L (0-15) H 10/24/24 17:32 Troponin T 120 Minute 28.69 ng/L (0-15) H 10/24/24 19:29 Delta Troponin T -1.31 ABS# (0-10) L 10/24/24 19:29 NT-Pro-B Natriuret Pep 2113 pg/mL (0-450) H 10/24/24 17:32 Total Protein 6.0 g/dL (6.6-8.7) L 10/24/24 17:32 Albumin 3.8 g/dL (3.5-5.2) 10/24/24 17:32 Globulin 2.2 g/dL (1.3-4.6) 10/24/24 17:32 Lipase 48 U/L (13-60) 10/24/24 17:32 EKG Data EKG 1: Interpretation: Sinus bradycardia with a rate of 47, parable 151, QRS duration 91, QTc of 448, no ST segment elevation or depression. EKG 2: Interpretation: Sinus bradycardia with a rate of 43, MS interval 156, QRS duration 91, QTc 461, no ST segment elevation or depression. PVCs noted. Discharge Plan Discharge Patient Disposition: Home Clinical Impression: Chest pain Qualifiers: Chest pain type: other chest pain Qualified Code(s): R07.89 - Other chest pain Condition: Stable Prescriptions: No Action atorvastatin 20 mg tablet 20 mg PO QPM baclofen 10 mg tablet See Rx Instructions .ROUTE .COMPLEX Rx Instructions: TAKE 10 MG THREE TIMES DAILY AND AT BEDTIME. finasteride 5 mg tablet 5 mg PO DAILY hydralazine 100 mg tablet 100 mg PO TID tamsulosin 0.4 mg Capsule 0.4 mg PO DAILY 30 Days Qty: 30 3RF aspirin 81 mg Tablet,Delayed Release (Dr/Ec) 81 mg PO QAM ferrous sulfate 27 mg iron Tablet 27 mg PO DAILY citalopram 10 mg tablet 10 mg PO DAILY losartan 100 mg tablet 100 mg PO DAILY vitamin A 2,400 mcg Capsule 2,400 mcg PO DAILY vitamin E 268 mg (400 unit) Capsule 268 mg PO DAILY cholecalciferol (vitamin D3) [Vitamin D3] 25 mcg (1,000 unit) Capsule 25 mcg PO DAILY Glucosamine Chondroitin 550-30-1 mg Capsule 1 cap PO DAILY vitamin K26-[id number] acid 2,500-400 mcg Tablet,Disintegrating 1 tab PO DAILY metoprolol tartrate 25 mg tablet 25 mg PO BID PRN (Reason: tacahycardia 120 bpm or more) Qty: 30 0RF Rx Instructions: Take if persistent tachycardia 120 bpm or more Discharge Orders: Discharge ED (Routine); Ordered 10/24/24 Ordered By: Allen Ballesteros Referrals: Nehal Cormier NP [Primary Care Provider] - Discharge Diet: Advance as tolerated Discharge Activity: Increase activity as tolerated Patient Instructions: Opioid Safety, Pain Management Activity Restrictions/Additional Instructions: Follow-up with your primary care doctor for low heart rate that we noticed here in the emergency department. Additionally, follow-up with your primary care doctor for further management of chest pain. Please return to the emergency department with any new or worsening symptoms. Coding Level of Care Code ED Batch Unloader for Whitley Perez
[2024-10-24 17:43] LABS: Basophils % 0.2 %; Eosinophils # 0.1 10^3/uL (0.0-0.8); Eosinophils % 2.2 %; Hematocrit 30.6 % (37-53); Lymphocytes # 1.1 10^3/uL (0.8-4.8); Lymphocytes % 16.8 %; Mean Corpuscular HGB Conc 31.4 g/dL (30-55); Mean Corpuscular Hemoglobin 31.1 pg (27-33); Monocytes # 0.6 10^3/uL (0.2-0.9); Monocytes % 8.8 %; Neutrophils # 4.64 10^3/uL (1.8-7.7); Neutrophils % 71.5 %; Nucleated Red Blood Cells % 0 %; Platelet Count 111 10^3/cmm (157-399); Red Blood Count 3.09 10^6/uL (3.85-5.65); Red Cell Distribution Width 12.9 % (12.1-15.1); White Blood Count 6.48 10^3/uL (3.29-11.43)
[2024-10-24 17:59] LABS: INR 1.07 (0.8-1.2); Partial Thromboplastin Time 27.2 SECONDS (23.9-36.7)
[2024-10-24 18:09] LABS: Troponin(5th) Baseline 30 ng/L (0-15)
[2024-10-24 18:14] LABS: Alanine Aminotransferase 7 U/L (0-41); Albumin Level 3.8 g/dL (3.5-5.2); Alkaline Phosphatase 58 U/L (40-130); Blood Urea Nitrogen 29 mg/dL (8-23); Carbon Dioxide 26 mmol/L (22-29); Chloride 109 mmol/L (98-107); Globulin 2.2 g/dL (1.3-4.6); Glucose 101 mg/dL (65-115); Lipase 48 U/L (13-60); NT Pro B Type Natriuretic Pept 2113 pg/mL (0-450); Osmolality Calculated 306 mOsm/kg (285-295); Sodium 145 mmol/L (136-145); Total Bilirubin 0.3 mg/dL (0.15-1.2)
[2024-10-24 18:15] LABS: Anion Gap 14.1 (5-19); Aspartate Amino Transferase 15 U/L (0-40); Potassium 4.1 mmol/L (3.5-5.1)
--- NOTE | 2024-10-24 18:16 | ECG_ITS ---
[facility]: 2024[facility]24 Pat Name: Edmund Villalpando Department: Room: Gender: Male Lump Roller: : 1935 Requested By: France Parker Order Number: [id number] Melara MD: Kyle Sheldon M.D. Measurements Intervals [place] Rate: 43 P: 60 AR: 156 QRS: 52 QRSD: 91 T: 26 QT: 515 QTc: 438 Interpretive Statements SINUS BRADYCARDIA WITH OCCASIONAL SUPRAVENTRICULAR PREMATURE COMPLEXES PROLONGED QT INTERVAL Compared to ECG 10/24/2024 16:20:46 Prolonged QT interval now present T-wave abnormality no longer present Electronically Signed On 10-25-2024 21:36:38 SPAR FINISHER by Kyle Sheldon M.D. [email or web address]
--- NOTE | 2024-10-24 18:53 | PC.NURSE ---
Assumed care from Paige KEATING at this time.
[2024-10-24 19:53] LABS: Troponin 5 2HR 28.69 ng/L (0-15)
[2024-10-24 19:55] LABS: Troponin 5 2HR Delta -1.31 ABS# (0-10)
== END 2024-10-24 20:27 | disposition home or self-care (01) ==
PROVIDERS: Emergency Medicine; Emergency Provider General Practice; PCP Nurse Practitioner Family
DX: R07.89 Other chest pain (principal); Z87.891 Personal history of nicotine dependence; Z86.73 Personal history of transient ischemic attack (TIA), and cerebral infarction without residual deficits; I10 Essential (primary) hypertension; E78.5 Hyperlipidemia, unspecified
CPT/HCPCS: 36415; 71045; 80053; 83690; 83880; 84484; 85025; 85610; 85730; 93005; 99285

== ENCOUNTER 2024-12-17 00:27 | Emergency (ER) | payer MEDICARE, SELFPAY ==
[2024-12-17 00:28] VITALS: BP 193/88; PULSE 67; RESP 16; TEMP 36.6; O2SAT 98; BMI 23.7
--- NOTE | 2024-12-17 00:44 | W.ED.FALL ---
HPI - Fall General: Chief Complaint: Fall Stated Complaint: fall Time Seen by Provider: 12/17/24 00:30 History of Present Illness: 89-year-old male with a history of dementia who presents emergency room after his found him on the floor in the living room. He was confused and somnolent. EMS arrived he was somewhat bradycardic and his blood pressure was low. He is improved quite a bit by the time he arrives to the hospital. No focal motor deficits. No recent fevers. No cough. No chest pain. Related Data Home Medications ?Medication ?Instructions ?Recorded ?Confirmed atorvastatin 20 mg tablet 20 mg PO QPM 05/09/23 02/18/24 baclofen 10 mg tablet See Rx Instructions .Route .COMPLEX 05/09/23 02/18/24 finasteride 5 mg tablet 5 mg PO DAILY 05/09/23 02/18/24 hydralazine 100 mg tablet 100 mg PO TID 05/09/23 02/18/24 aspirin 81 mg tablet,delayed 81 mg PO QAM 05/11/23 02/18/24 release ferrous sulfate 27 mg iron tablet 27 mg PO DAILY 05/11/23 02/18/24 cholecalciferol (vitamin D3) 25 25 mcg PO DAILY 10/19/23 02/18/24 mcg (1,000 unit) capsule (Vitamin D3) citalopram 10 mg tablet 10 mg PO DAILY 10/19/23 02/18/24 glucosamine sulf dipot 1 cap PO DAILY 10/19/23 02/18/24 chlr,msm,chond 550 mg-C 30 mg-odessa 1 mg capsule (Glucosamine Chondroitin) losartan 100 mg tablet 100 mg PO DAILY 10/19/23 02/18/24 vitamin A 2,400 mcg capsule 2,400 mcg PO DAILY 10/19/23 02/18/24 vitamin B12 2,500 mcg-folic acid 1 tab PO DAILY 10/19/23 02/18/24 400 mcg disintegrating tablet vitamin E 268 mg (400 unit) capsule 268 mg PO DAILY 10/19/23 02/18/24 Previous Rx's ?Medication ?Instructions ?Recorded tamsulosin 0.4 mg capsule 0.4 mg PO DAILY 30 days #30 caps 05/11/23 metoprolol tartrate 25 mg tablet 25 mg PO BID PRN tacahycardia 120 10/20/23 bpm or more #30 tabs Allergies Allergy/AdvReac Type Severity Reaction Status Date / Time No Known Allergies Allergy Verified 12/17/24 00:34 Review of Systems Narrative: Constitutional symptoms: Negative except as documented in HPI. Skin symptoms: Negative except as documented in HPI. Eye symptoms: Negative except as documented in HPI. ENMT symptoms: Negative except as documented in HPI. Respiratory symptoms: Negative except as documented in HPI. Cardiovascular symptoms: Negative except as documented in HPI. Gastrointestinal symptoms: Negative except as documented in HPI. Genitourinary symptoms: Negative except as documented in HPI. Musculoskeletal symptoms: Negative except as documented in HPI. Neurologic symptoms: Negative except as documented in HPI. Psychiatric symptoms: Negative except as documented in HPI. Endocrine symptoms: Negative except as documented in HPI. PFSH ED PFSH: Medical History Atrial fibrillation Hypertension Stroke-like symptoms AMS (altered mental status) Dysarthria Acute urinary retention Depression with anxiety CVA (cerebral vascular accident) Hyperlipidemia Dementia BPH (benign prostatic hyperplasia) Bradycardia No significant past medical history Surgical History History of cholecystectomy No significant past surgical history Family History Other Diabetes Social History Smoking and tobacco/nicotine status: former use of tobacco/nicotine Alcohol intake: never Physical Exam Narrative: EXAM NARRATIVE: General: Alert, no acute distress. Skin: Warm, dry. Head: Normocephalic, atraumatic. Neck: Supple, trachea midline. Eye: Extraocular movements are intact. Ears, nose, mouth and throat: mucosa moist. Cardiovascular: Regular, Normal peripheral perfusion. Respiratory: Lungs are clear to auscultation, respirations are non-labored, breath sounds are equal, Symmetrical chest wall expansion. Gastrointestinal: Soft, Nontender, Non distended Musculoskeletal: Normal ROM, no deformity. Neurological: Alert and oriented, No focal neurological deficit observed. Psychiatric: Cooperative, appropriate mood & affect. Course Vital Signs: Vital signs: Vital Signs Temperature 97.9 F 12/17/24 00:28 Pulse Rate 56 L 12/17/24 03:43 Respiratory Rate 16 12/17/24 03:43 Blood Pressure 182/81 12/17/24 03:43 Pulse Oximetry 96 12/17/24 03:43 Oxygen Delivery Me thod Room Air 12/17/24 03:43 MDM - Fall Medical Decision Making Medical decision making: Differential diagnosis including but not limited to and based on the above HPI, review of systems and physical exam in this patient with syncope: Vasovagal, orthostatics hypotension, cardiac dysrhythmia, myocardial infarction, infection and hypotension, Orders placed to evaluate differential diagnosis based on the above differential, HPI and physical exam EKG: Time 1:26 AM. Rate 58. Sinus bradycardia, No ST-T changes, no ectopy, normal IN & QRS intervals, This was reviewed and interpreted by myself the ER physician at 1:30 AM Chest x-ray: No acute process. No infiltrate. No pneumothorax. This was reviewed and interpreted by myself the emergency room physician. I also reviewed the radiology report. CT head: No acute intracranial process. no intracranial hemorrhage, no evidence of infarct. no evidence of acute fracture.This was reviewed and interpreted by myself the ER physician. Lab Review: Laboratory results were reviewed and interpreted by myself the emergency room physician. No leukocytosis. Mild anemia. Mean and creatinine are above his baseline at 41 2.2. Baseline creatinine is usually around 1.4-1.6. Urinalysis is negative for infection I reviewed the patient's medical record. Reexamination: Patient appears completely recovered at this time. No somnolence. No confusion. states he is at his baseline. Assessment and plan: Syncope Bradycardia Dehydration - Discharged home - Discussed plan with patient. Answered any questions. - Evaluation and treatment of this problem were appropriate in the emergency setting. Lab Data 12/17/24 01:19 12/17/24 01:19 Radiology Impressions Chest X-Ray 12/17/24 00:45 IMPRESSION: No evidence of acute cardiopulmonary process. Head CT 12/17/24 00:45 IMPRESSION: 1. Cerebral atrophy and chronic cerebral microvascular disease. 2. No evidence of acute intracranial process. Laboratory Results WBC 5.53 10^3/uL (3.29-11.43) 12/17/24 01:19 RBC 3.11 10^6/uL (3.85-5.65) L 12/17/24 01:19 Hgb 9.80 g/dL (11.27-16.99) L 12/17/24 01:19 Hct 30.7 % (37-53) L 12/17/24 01:19 MCV 98.7 fl (82-101) 12/17/24 01:19 MCH 31.5 pg (27-33) 12/17/24 01:19 MCHC 31.9 g/dL (30-55) 12/17/24 01:19 RDW 13.4 % (12.1-15.1) 12/17/24 01:19 Plt Count 120 10^3/cmm (157-399) L 12/17/24 01:19 MPV 11.2 fL (7.4-10.4) H 12/17/24 01:19 Neut % (Auto) 60.7 % 12/17/24 01:19 Lymph % (Auto) 24.4 % 12/17/24 01:19 [place] % (Auto) 11.9 % 12/17/24 01:19 Eos % (Auto) 2.2 % 12/17/24 01:19 Baso % (Auto) 0.4 % 12/17/24 01:19 Neut # (Auto) 3.36 10^3/uL (1.8-7.7) 12/17/24 01:19 Lymph # (Auto) 1.4 10^3/uL (0.8-4.8) 12/17/24 01:19 [place] # (Auto) 0.7 10^3/uL (0.2-0.9) 12/17/24 01:19 Eos # (Auto) 0.1 10^3/uL (0.0-0.8) 12/17/24 01:19 Baso # (Auto) 0.0 10^3/uL (0.0-0.1) 12/17/24 01:19 Nucleated RBC % (auto) 0 % 12/17/24 01:19 Nucleated RBCs # 0.0 /100WBC 12/17/24 01:19 Sodium 142 mmol/L (136-145) 12/17/24 01:19 Potassium 4.4 mmol/L (3.5-5.1) 12/17/24 01:19 Chloride 108 mmol/L (98-107) H 12/17/24 01:19 Carbon Dioxide 23 mmol/L (22-29) 12/17/24 01:19 Anion Gap 15.4 (5-19) 12/17/24 01:19 BUN 41 mg/dL (8-23) H 12/17/24 01:19 Creatinine 2.2 mg/dL (0.7-1.2) H 12/17/24 01:19 GFR Calculation Not Reportable 12/17/24 01:19 Glucose 106 mg/dL (65-115) 12/17/24 01:19 Calculated Osmolality 305 mOsm/kg (285-295) H 12/17/24 01:19 Lactic Acid 0.5 mmol/L (0.5-2.2) 12/17/24 01:19 Calcium 8.5 mg/dL (8.5-10.5) 12/17/24 01:19 Total Bilirubin 0.3 mg/dL (0.15-1.2) 12/17/24 01:19 AST 12 U/L (0-40) 12/17/24 01:19 ALT < 5 U/L (0-41) 12/17/24 01:19 Alkaline Phosphatase 62 U/L (40-130) 12/17/24 01:19 Troponin T Baseline 30 ng/L (0-15) H 12/17/24 01:19 Troponin T 120 Minute 27.36 ng/L (0-15) H 12/17/24 03:38 Delta Troponin T -2.64 ABS# (0-10) L 12/17/24 03:38 C-Reactive Protein 3.0 mg/L (0.0-4.9) 12/17/24 01:19 Total Protein 6.1 g/dL (6.6-8.7) L 12/17/24 01:19 Albumin 3.8 g/dL (3.5-5.2) 12/17/24 01:19 Globulin 2.3 g/dL (1.3-4.6) 12/17/24 01:19 Urine Color Yellow (Yellow) 12/17/24 02:21 Urine Appearance Clear (CLEAR) 12/17/24 02:21 Urine pH 5.0 (5-7) 12/17/24 02:21 Ur Specific [place] 1.020 (1.005-1.030) 12/17/24 02:21 Urine Protein Trace (Negative) A 12/17/24 02:21 Urine Glucose (UA) Negative (Normal) 12/17/24 02:21 Urine Ketones Trace (Negative) 12/17/24 02:21 Urine Blood Negative (Negative) 12/17/24 02:21 Urine Nitrate Negative (Negative) 12/17/24 02:21 Urine Bilirubin Negative (Negative) 12/17/24 02:21 Urine Urobilinogen 1.0 mg/dL (Negative) 12/17/24 02:21 Ur Leukocyte Esterase Negative (Negative) 12/17/24 02:21 Urine RBC None /hpf (0-2) 12/17/24 02:21 Urine WBC None /hpf (0-5) 12/17/24 02:21 Ur Squamous Epith Cells 0-4 /hpf (0-5) H 12/17/24 02:21 Amorphous Sediment Trace /hpf 12/17/24 02:21 Urine Bacteria None /hpf (NONE) 12/17/24 02:21 Urine Mucus 1+ /hpf 12/17/24 02:21 Influenza A (PCR) Negative (Negative) 12/17/24 00:57 Influenza Type B (PCR) Negative (Negative) 12/17/24 00:57 RSV (PCR) Negative (Negative) 12/17/24 00:57 SARS-CoV-2 (PCR) Negative (Negative) 12/17/24 00:57 All radiology interpretation(s) finalized by discharge Discharge Plan Discharge Patient Disposition: Home Clinical Impression: Acute on chronic renal insufficiency, Dehydration, Near syncope, Bradycardia, Fall Condition: Stable Prescriptions: No Action atorvastatin 20 mg tablet 20 mg PO QPM baclofen 10 mg tablet See Rx Instructions .ROUTE .COMPLEX Rx Instructions: TAKE 10 MG THREE TIMES DAILY AND AT BEDTIME. finasteride 5 mg tablet 5 mg PO DAILY hydralazine 100 mg tablet 100 mg PO TID tamsulosin 0.4 mg Capsule 0.4 mg PO DAILY 30 Days Qty: 30 3RF aspirin 81 mg Tablet,Delayed Release (Dr/Ec) 81 mg PO QAM ferrous sulfate 27 mg iron Tablet 27 mg PO DAILY citalopram 10 mg tablet 10 mg PO DAILY losartan 100 mg tablet 100 mg PO DAILY vitamin A 2,400 mcg Capsule 2,400 mcg PO DAILY vitamin E 268 mg (400 unit) Capsule 268 mg PO DAILY cholecalciferol (vitamin D3) [Vitamin D3] 25 mcg (1,000 unit) Capsule 25 mcg PO DAILY Glucosamine Chondroitin 550-30-1 mg Capsule 1 cap PO DAILY vitamin B50-euvwj acid 2,500-400 mcg Tablet,Disintegrating 1 tab PO DAILY metoprolol tartrate 25 mg tablet 25 mg PO BID PRN (Reason: tacahycardia 120 bpm or more) Qty: 30 0RF Rx Instructions: Take if persistent tachycardia 120 bpm or more Discharge Orders: Discharge ED (Routine); Ordered 12/17/24 Ordered By: France Cottrell Referrals: Nehal Cormier NP [Primary Care Provider] - Discharge Diet: Usual diet Discharge Activity: Increase activity as tolerated Patient Instructions: Dehydration (ED), Opioid Safety, Pain Management Activity Restrictions/Additional Instructions: Thank you for choosing [facility] for your healthcare needs today. Please realize this is an emergency room and that we are providing you with a medical screening exam and this may not be complete and all inclusive of all the testing and or work up that you may need to determine your ailment or severity of your illness. You have been screened and evaluated and felt safe for discharge. Health conditions do change or evolve sometimes and as such it is important that you follow up with your Primary Doctor to be re checked, 3-5 days is a general good time frame for follow up. You are always welcome to return to the ED for re assessment if your symptoms are worsening or you have new concerns Print Language: Turkish Coding Level of Care Code ED Logistics Associate for Whitley Perez
--- NOTE | 2024-12-17 00:45 | XRR_ITS ---
PROCEDURE INFORMATION: Exam: XR Chest Exam date and time: 12/17/2024 1:05 AM Age: 89 years old Clinical indication: Injury or trauma; Fall; Blunt trauma (contusions or hematomas); Additional info: Weakness TECHNIQUE: Imaging protocol: Radiologic exam of the chest. Views: 1 view. COMPARISON: CR (CHEST, ) 10/24/2024 4:39 PM FINDINGS: Lungs: Unremarkable. No consolidation. Low lung volumes. Pleural spaces: Unremarkable. No pleural effusion. No pneumothorax. Heart/Mediastinum: Unremarkable. No cardiomegaly. Bones/joints: Healed right posterolateral rib fracture. XR/XR chest 1V portable [id number] IMPRESSION: No evidence of acute cardiopulmonary process.
--- NOTE | 2024-12-17 00:45 | CTR_ITS ---
PROCEDURE INFORMATION: Exam: CT Head Without Contrast Exam date and time: 12/17/2024 12:59 AM Age: 89 years old Clinical indication: Injury or trauma; Fall; Blunt trauma (contusions or hematomas); Additional info: Fall, head injury TECHNIQUE: Imaging protocol: Computed tomography of the head without contrast. Radiation optimization: All CT scans at this facility use at least one of these dose optimization techniques: automated exposure control; mA and/or kV adjustment per patient size (includes targeted exams where dose is matched to clinical indication); or iterative reconstruction. COMPARISON: CT head wo con* [id number] 02/13/2024 8:08 PM RADIATION DOSE METRICS: Total DLP (mGy-cm): 1198.88 FINDINGS: Brain: There is generalized brain atrophy. Good-white differentiation is preserved. Amorphous lucency is present in the supratentorial white matter bilaterally. No evidence of intracranial hemorrhage or mass effect. Small area of encephalomalacia in the left occipital lobe consistent with remote infarct, unchanged. Cerebral ventricles: No ventriculomegaly. Paranasal sinuses: Minimal mucoperiosteal thickening in the maxillary sinuses. Mastoid air cells: Visualized mastoid air cells are well aerated. Bones: Unremarkable. No acute fracture. Soft tissues: Unremarkable. CT/CT head wo con* [id number] IMPRESSION: 1. Cerebral atrophy and chronic cerebral microvascular disease. 2. No evidence of acute intracranial process.
--- NOTE | 2024-12-17 01:26 | ECG_ITS ---
[facility]: [facility]24-12[facility]17 Pat Name: Edmund Villalpando Department: Room: Gender: Male Director Of Maternity Services: : 1935 Requested By: France Parker Order Number: [id number] Reading MD: Measurements Intervals [place] Rate: 58 P: 39 LA: 172 QRS: -8 QRSD: 89 T: 71 QT: 447 QTc: 439 Interpretive Statements SINUS BRADYCARDIA NONSPECIFIC T-WAVE ABNORMALITY [email or web address]
--- NOTE | 2024-12-17 01:34 | PC.NURSE ---
PT IS AAOX4, BUT PT DOES HAVE CONFUSION AND DX OF DEMENTIA. PER PT IS NOT AT HIS BASELINE
[2024-12-17 01:35] VITALS: BP 179/86; O2SAT 98
[2024-12-17 01:38] LABS: Influenza A NEGATIVE (Negative); Influenza B NEGATIVE (Negative); Respiratory Syncytial Virus Ce NEGATIVE (Negative); SARS-CoV-2 PCR NEGATIVE (Negative)
[2024-12-17 01:39] LABS: Basophils % 0.4 %; Eosinophils # 0.1 10^3/uL (0.0-0.8); Eosinophils % 2.2 %; Hematocrit 30.7 % (37-53); Lymphocytes # 1.4 10^3/uL (0.8-4.8); Lymphocytes % 24.4 %; Mean Corpuscular HGB Conc 31.9 g/dL (30-55); Mean Corpuscular Hemoglobin 31.5 pg (27-33); Mean Corpuscular Volume 98.7 fl (82-101); Mean Platelet Volume 11.2 fL (7.4-10.4); Monocytes # 0.7 10^3/uL (0.2-0.9); Monocytes % 11.9 %; Neutrophils # 3.36 10^3/uL (1.8-7.7); Neutrophils % 60.7 %; Nucleated Red Blood Cells % 0 %; Platelet Count 120 10^3/cmm (157-399); Red Blood Count 3.11 10^6/uL (3.85-5.65); Red Cell Distribution Width 13.4 % (12.1-15.1); White Blood Count 5.53 10^3/uL (3.29-11.43)
[2024-12-17 01:59] LABS: Lactic Sepsis W/Reflex 0.5 mmol/L (0.5-2.2)
[2024-12-17 02:00] LABS: Alanine Aminotransferase < 5 U/L (0-41); Albumin Level 3.8 g/dL (3.5-5.2); Alkaline Phosphatase 62 U/L (40-130); Anion Gap 15.4 (5-19); Aspartate Amino Transferase 12 U/L (0-40); Blood Urea Nitrogen 41 mg/dL (8-23); Calcium 8.5 mg/dL (8.5-10.5); Carbon Dioxide 23 mmol/L (22-29); Chloride 108 mmol/L (98-107); Creatinine Clr Calc Pharmacy 25.4375; Globulin 2.3 g/dL (1.3-4.6); Glucose 106 mg/dL (65-115); Osmolality Calculated 305 mOsm/kg (285-295); Potassium 4.4 mmol/L (3.5-5.1); Sodium 142 mmol/L (136-145); Total Bilirubin 0.3 mg/dL (0.15-1.2); Total Protein 6.1 g/dL (6.6-8.7)
[2024-12-17 02:01] VITALS: BP 157/81; PULSE 56; RESP 16; O2SAT 97
[2024-12-17 02:03] LABS: Troponin(5th) Baseline 30 ng/L (0-15)
--- NOTE | 2024-12-17 02:45 | ECG_ITS ---
[facility]: 2024-12-17 Pat Name: Edmund Villalpando Department: Room: Gender: Male Perioperative Tech: : 1935 Requested By: France Parker Order Number: [id number] Reading MD: Measurements Intervals [place] Rate: 53 P: 73 GA: 184 QRS: 16 QRSD: 90 T: 47 QT: 452 QTc: 426 Interpretive Statements SINUS BRADYCARDIA [email or web address]
[2024-12-17] MEDS: sodium chloride 0.9% 1,000 ML 999 ML IV (03:08)
[2024-12-17 03:21] LABS: Bilirubin Urine Negative (Negative); Blood Urine Negative (Negative); Glucose Urine UA Negative (Normal); Ketones Urine Trace (Negative); Leukocyte Esterase Urine Negative (Negative); Nitrate Urine Negative (Negative); Protein Urine Trace (Negative); Urine Appearance Clear (CLEAR); Urine Color Yellow (Yellow)
[2024-12-17 03:43] VITALS: BP 182/81; PULSE 56; RESP 16; O2SAT 96
[2024-12-17 03:48] LABS: Amorphous Sediment Urine TRACE /hpf; Mucus Urine 1+ /hpf; Squamous Epithelial Cell Urine 0-4 /hpf (0-5)
[2024-12-17 04:06] LABS: Troponin 5 2HR 27.36 ng/L (0-15)
[2024-12-17 04:07] LABS: Troponin 5 2HR Delta -2.64 ABS# (0-10)
[2024-12-17 04:59] VITALS: BP 190/78; PULSE 54; RESP 16; O2SAT 97
== END 2024-12-17 04:55 | disposition home or self-care (01) ==
PROVIDERS: Emergency Provider Emergency Medicine; PCP Nurse Practitioner Family
DX: I12.9 Hypertensive chronic kidney disease with stage 1 through stage 4 chronic kidney disease, or unspecified chronic kidney disease (principal); N18.9 Chronic kidney disease, unspecified; Z86.73 Personal history of transient ischemic attack (TIA), and cerebral infarction without residual deficits; E78.5 Hyperlipidemia, unspecified; Z87.891 Personal history of nicotine dependence; Z11.52 Encounter for screening for COVID-19; E86.0 Dehydration; R55 Syncope and collapse; R00.1 Bradycardia, unspecified; W19.XXXA Unspecified fall, initial encounter; Z79.82 Long term (current) use of aspirin
CPT/HCPCS: 36415; 70450; 71045; 80053; 81001; 83605; 84484; 85025; 86140; 87040; 87637; 93005; 96360; 96361; 99285; J7030

== ENCOUNTER 2025-04-07 03:17 | Inpatient (IN) | payer MEDICARE, SELFPAY ==
[2025-04-07] VITALS (88 sets, daily range): BP systolic 104–179; BP diastolic 44–107; PULSE 41–73; RESP 7–31; TEMP 36.4–36.7; O2SAT 87–100; BMI 27.6; BMI 22.1
--- NOTE | 2025-04-07 03:23 | ECG_ITS ---
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 Measurements Intervals [place] Rate: 53 P: 81 [place]: 186 QRS: 31 QRSD: 84 T: 54 QT: 453 QTc: 428 Interpretive Statements SINUS BRADYCARDIA Compared to ECG 12/17/2024 03:56:45 No significant changes Electronically Signed On 04-09-2025 06:19:55 CDT by Kyle Sheldon M.D. [email or web address]
--- NOTE | 2025-04-07 03:23 | CTR_ITS ---
PROCEDURE INFORMATION: Exam: CT Head Without Contrast Exam date and time: 04/07/2025 3:47 AM Age: 89 years old Clinical indication: Altered mental status/memory loss; Additional info: Encephalopathy, altered mental status TECHNIQUE: Imaging protocol: Computed tomography of the head without contrast. Radiation optimization: All CT scans at this facility use at least one of these dose optimization techniques: automated exposure control; mA and/or kV adjustment per patient size (includes targeted exams where dose is matched to clinical indication); or iterative reconstruction. COMPARISON: CT head wo con* [id number] 12/17/2024 12:59 AM RADIATION DOSE METRICS: Total DLP (mGy-cm): 1001.6 FINDINGS: Brain: There is mild small vessel disease. There is no evidence of acute parenchymal hemorrhage, extra-axial collection, or acute infarction. There is no mass effect, midline shift, or downward herniation. Cerebral ventricles: No ventriculomegaly. Paranasal sinuses: There is mild paranasal sinus mucosal thickening. Mastoid air cells: Visualized mastoid air cells are well aerated. Bones: Unremarkable. No acute fracture. Soft tissues: Unremarkable. CT/CT head wo con* [id number] IMPRESSION: Mild small vessel disease. No evidence of acute intracranial process.
--- NOTE | 2025-04-07 03:23 | XRR_ITS ---
PROCEDURE INFORMATION: Exam: XR Chest Exam date and time: 04/07/2025 3:39 AM Age: 89 years old Clinical indication: Other: Weakness TECHNIQUE: Imaging protocol: Radiologic exam of the chest. Views: 1 view. COMPARISON: CR XR chest 1V portable [id number] 12/17/2024 1:05 AM FINDINGS: Lungs: Mild chronic appearing reticular densities are seen at the lung bases left greater right. Pleural spaces: Unremarkable. No pleural effusion. No pneumothorax. Heart/Mediastinum: Unremarkable. No cardiomegaly. Bones/joints: There is an old right rib fracture again noted. XR/XR chest 1V portable [id number] IMPRESSION: No significant change. Mild chronic pulmonary findings. Otherwise no evidence of acute pulmonary process.
--- NOTE | 2025-04-07 03:29 | W.ED.GENADLT ---
HPI - General Adult General: Chief complaint: General Medical Stated complaint: AMS Time Seen by Provider: 04/07/25 03:19 History of Present Illness: 89-year-old man with a history of chronic kidney disease, anemia, and some dementia who presents emergency room after having had an unresponsive event. EMS reported that when they arrived he was not breathing and they could not feel a pulse initially. They did 1 compression and the patient came to and then they palpated a pulse. Later I spoke to the who says that he had suddenly stopped breathing or was barely breathing and was unresponsive until EMS arrived. As described above. He is slightly confused on presentation but has no focal motor deficits. He does not remember the event. Related Data Home Medications ?Medication ?Instructions ?Recorded ?Confirmed atorvastatin 20 mg tablet 20 mg PO QPM 05/09/23 03/02/25 baclofen 10 mg tablet See Rx Instructions .Route .COMPLEX 05/09/23 03/02/25 finasteride 5 mg tablet 5 mg PO DAILY 05/09/23 03/02/25 hydralazine 100 mg tablet 100 mg PO TID 05/09/23 03/02/25 aspirin 81 mg tablet,delayed 81 mg PO QAM 05/11/23 03/02/25 release ferrous sulfate 27 mg iron tablet 27 mg PO DAILY 05/11/23 03/02/25 cholecalciferol (vitamin D3) 25 25 mcg PO DAILY 10/19/23 03/02/25 mcg (1,000 unit) capsule (Vitamin D3) citalopram 10 mg tablet 10 mg PO DAILY 10/19/23 03/02/25 glucosamine sulf dipot 1 cap PO DAILY 10/19/23 03/02/25 chlr,msm,chond 550 mg-C 30 mg-odessa 1 mg capsule (Glucosamine Chondroitin) losartan 100 mg tablet 100 mg PO DAILY 10/19/23 03/02/25 vitamin A 2,400 mcg capsule 2,400 mcg PO DAILY 10/19/23 03/02/25 vitamin B12 2,500 mcg-folic acid 1 tab PO DAILY 10/19/23 03/02/25 400 mcg disintegrating tablet vitamin E 268 mg (400 unit) capsule 268 mg PO DAILY 10/19/23 03/02/25 amlodipine 5 mg tablet 5 mg PO DAILY 03/02/25 03/02/25 donepezil 5 mg tablet 5 mg PO DAILY 03/02/25 03/02/25 Previous Rx's ?Medication ?Instructions ?Recorded tamsulosin 0.4 mg capsule 0.4 mg PO DAILY 30 days #30 caps 05/11/23 metoprolol tartrate 25 mg tablet 25 mg PO BID PRN tacahycardia 120 10/20/23 bpm or more #30 tabs Allergies Allergy/AdvReac Type Severity Reaction Status Date / Time No Known Allergies Allergy Verified 04/07/25 03:27 Review of Systems General: Reports: ROS unobtainable due to mental status PFSH ED PFSH: Medical History Atrial fibrillation Hypertension Stroke-like symptoms AMS (altered mental status) Dysarthria Acute urinary retention Depression with anxiety CVA (cerebral vascular accident) Hyperlipidemia Dementia BPH (benign prostatic hyperplasia) Bradycardia No significant past medical history Surgical History History of cholecystectomy No significant past surgical history Family History Other Diabetes Social History Smoking and tobacco/nicotine status: former use of tobacco/nicotine Alcohol intake: never Physical Exam Narrative: EXAM NARRATIVE: General: Alert, no acute distress. Skin: Warm, dry. Head: Normocephalic, atraumatic. Neck: Supple, trachea midline. Eye: Extraocular movements are intact. Ears, nose, mouth and throat: mucosa moist. Cardiovascular: Regular, Normal peripheral perfusion. Respiratory: Lungs are clear to auscultation, respirations are non-labored, breath sounds are equal, Symmetrical chest wall expansion. Gastrointestinal: Soft, Nontender, Non distended Musculoskeletal: Normal ROM, no deformity. Neurological: Alert and oriented to , No focal neurological deficit observed. Slightly confused Psychiatric: Cooperative, appropriate mood & affect. Course Vital Signs: Vital signs: Vital Signs Temperature 98.0 F 04/07/25 03:21 Pulse Rate 66 04/07/25 04:00 Respiratory Rate 22 H 04/07/25 04:00 Blood Pressure 141/58 04/07/25 04:00 Pulse Oximetry 97 04/07/25 04:00 Oxygen Delivery Me thod Room Air 04/07/25 04:00 MDM - General Adult Medical Decision Making Medical decision making: Differential diagnosis including but not limited to and based on the above HPI, review of systems and physical exam in this patient with syncope: Vasovagal, orthostatics hypotension, cardiac dysrhythmia, myocardial infarction, infection and hypotension, Orders placed to evaluate differential diagnosis based on the above differential, HPI and physical exam EKG: Time 3:27 AM. Rate 53. Sinus bradycardia, No ST-T changes, no ectopy, normal IL & QRS intervals, This was reviewed and interpreted by myself the ER physician at 3:30 AM. Chest x-ray: No acute process. No infiltrate. No pneumothorax. This was reviewed and interpreted by myself the emergency room physician. I also reviewed the radiology report. CT head: No acute intracranial process. no intracranial hemorrhage, no evidence of infarct. no evidence of acute fracture.This was reviewed and interpreted by myself the ER physician. Lab Review: Laboratory results were reviewed and interpreted by myself the emergency room physician. No leukocytosis. Stable anemia. Stable chronic renal insufficiency with a BUN/creatinine of 40 and 2.1. Urinalysis is negative for infection. Initial troponin is 33. I reviewed the patient's medical record. Reexamination: Patient remained stable. No increased work of breathing. No altered mental status. No focal motor deficits. Consultation: I spoke with Dr. Snyder who is on-call for the hospital service who agrees to admission. Assessment and plan: Unresponsive event Possible cardiac arrest -I discussed the patient with the hospitalist on-call who is admitting the patient. - Discussed findings and plan with patient. Answered any questions. - All laboratory values were reviewed and interpreted personally by myself, the ER physician - All imaging was reviewed and interpreted personally by myself, the ER physician. - Evaluation and treatment of this problem were appropriate in the emergency setting Lab Data 04/07/25 03:30 04/07/25 03:30 Radiology Impressions Chest X-Ray 04/07/25 03:23 IMPRESSION: No significant change. Mild chronic pulmonary findings. Otherwise no evidence of acute pulmonary process. Head CT 04/07/25 03:23 IMPRESSION: Mild small vessel disease. No evidence of acute intracranial process. Laboratory Results WBC 3.89 10^3/uL (3.29-11.43) 04/07/25 03:30 RBC 3.01 10^6/uL (3.85-5.65) L 04/07/25 03:30 Hgb 9.40 g/dL (11.27-16.99) L 04/07/25 03:30 Hct 29.7 % (37-53) L 04/07/25 03:30 MCV 98.7 fl (82-101) 04/07/25 03:30 MCH 31.2 pg (27-33) 04/07/25 03:30 MCHC 31.6 g/dL (30-55) 04/07/25 03:30 RDW 13.2 % (12.1-15.1) 04/07/25 03:30 Plt Count 96 10^3/cmm (157-399) L 04/07/25 03:30 MPV 11.3 fL (7.4-10.4) H 04/07/25 03:30 Neut % (Auto) 59.6 % 04/07/25 03:30 Lymph % (Auto) 27.0 % 04/07/25 03:30 Greer % (Auto) 10.3 % 04/07/25 03:30 Eos % (Auto) 2.3 % 04/07/25 03:30 Baso % (Auto) 0.3 % 04/07/25 03:30 Neut # (Auto) 2.32 10^3/uL (1.8-7.7) 04/07/25 03:30 Lymph # (Auto) 1.1 10^3/uL (0.8-4.8) 04/07/25 03:30 Greer # (Auto) 0.4 10^3/uL (0.2-0.9) 04/07/25 03:30 Eos # (Auto) 0.1 10^3/uL (0.0-0.8) 04/07/25 03:30 Baso # (Auto) 0.0 10^3/uL (0.0-0.1) 04/07/25 03:30 Nucleated RBC % (auto) 0 % 04/07/25 03:30 Nucleated RBCs # 0.0 /100WBC 04/07/25 03:30 Sodium 143 mmol/L (136-145) 04/07/25 03:30 Potassium 4.2 mmol/L (3.5-5.1) 04/07/25 03:30 Chloride 110 mmol/L (98-107) H 04/07/25 03:30 Carbon Dioxide 23 mmol/L (22-29) 04/07/25 03:30 Anion Gap 14.2 (5-19) 04/07/25 03:30 BUN 40 mg/dL (8-23) H 04/07/25 03:30 Creatinine 2.1 mg/dL (0.7-1.2) H 04/07/25 03:30 GFR Calculation Not Reportable 04/07/25 03:30 Glucose 94 mg/dL (65-115) 04/07/25 03:30 Calculated Osmolality 306 mOsm/kg (285-295) H 04/07/25 03:30 Lactic Acid 0.6 mmol/L (0.5-2.2) 04/07/25 03:30 Calcium 8.8 mg/dL (8.5-10.5) 04/07/25 03:30 Total Bilirubin 0.2 mg/dL (0.15-1.2) 04/07/25 03:30 AST 12 U/L (0-40) 04/07/25 03:30 ALT 6 U/L (0-41) 04/07/25 03:30 Alkaline Phosphatase 62 U/L (40-130) 04/07/25 03:30 Creatine Kinase 74 U/L (39-308) 04/07/25 03:30 Troponin T Baseline 33 ng/L (0-15) H 04/07/25 03:30 C-Reactive Protein 3.0 mg/L (0.0-4.9) 04/07/25 03:30 Total Protein 6.1 g/dL (6.6-8.7) L 04/07/25 03:30 Albumin 3.8 g/dL (3.5-5.2) 04/07/25 03:30 Globulin 2.3 g/dL (1.3-4.6) 04/07/25 03:30 Urine Color Yellow (Yellow) 04/07/25 04:00 Urine Appearance Clear (CLEAR) 04/07/25 04:00 Urine pH 5.0 (5-7) 04/07/25 04:00 Ur Specific Ewing 1.019 (1.005-1.030) 04/07/25 04:00 Urine Protein Trace (Negative) A 04/07/25 04:00 Urine Glucose (UA) Negative (Normal) 04/07/25 04:00 Urine Ketones Trace (Negative) 04/07/25 04:00 Urine Blood Negative (Negative) 04/07/25 04:00 Urine Nitrate Negative (Negative) 04/07/25 04:00 Urine Bilirubin Negative (Negative) 04/07/25 04:00 Urine Urobilinogen 1.0 mg/dL (Negative) 04/07/25 04:00 Ur Leukocyte Esterase Negative (Negative) 04/07/25 04:00 Amorphous Sediment Not Reportable 04/07/25 04:00 All radiology interpretation(s) finalized by discharge Discharge Plan Discharge Patient Disposition: Placed in Observation Clinical Impression: Unresponsive episode Coding Level of Care Code ED [place] for Whitley Perez
[2025-04-07 03:44] LABS: Basophils % 0.3 %; Eosinophils # 0.1 10^3/uL (0.0-0.8); Eosinophils % 2.3 %; Hematocrit 29.7 % (37-53); Lymphocytes # 1.1 10^3/uL (0.8-4.8); Mean Corpuscular HGB Conc 31.6 g/dL (30-55); Mean Corpuscular Hemoglobin 31.2 pg (27-33); Mean Corpuscular Volume 98.7 fl (82-101); Mean Platelet Volume 11.3 fL (7.4-10.4); Monocytes # 0.4 10^3/uL (0.2-0.9); Monocytes % 10.3 %; Neutrophils # 2.32 10^3/uL (1.8-7.7); Neutrophils % 59.6 %; Nucleated Red Blood Cells % 0 %; Platelet Count 96 10^3/cmm (157-399); Red Blood Count 3.01 10^6/uL (3.85-5.65); Red Cell Distribution Width 13.2 % (12.1-15.1); White Blood Count 3.89 10^3/uL (3.29-11.43)
[2025-04-07 04:01] LABS: Troponin(5th) Baseline 33 ng/L (0-15)
[2025-04-07 04:02] LABS: Alanine Aminotransferase 6 U/L (0-41); Albumin Level 3.8 g/dL (3.5-5.2); Alkaline Phosphatase 62 U/L (40-130); Anion Gap 14.2 (5-19); Aspartate Amino Transferase 12 U/L (0-40); Blood Urea Nitrogen 40 mg/dL (8-23); Calcium 8.8 mg/dL (8.5-10.5); Carbon Dioxide 23 mmol/L (22-29); Chloride 110 mmol/L (98-107); Creatine Phosphokinase 74 U/L (39-308); Creatinine Clr Calc Pharmacy 28.4485; Globulin 2.3 g/dL (1.3-4.6); Glucose 94 mg/dL (65-115); Lactic Sepsis W/Reflex 0.6 mmol/L (0.5-2.2); Osmolality Calculated 306 mOsm/kg (285-295); Potassium 4.2 mmol/L (3.5-5.1); Sodium 143 mmol/L (136-145); Total Protein 6.1 g/dL (6.6-8.7)
[2025-04-07 04:16] LABS: Bilirubin Urine Negative (Negative); Blood Urine Negative (Negative); Glucose Urine UA Negative (Normal); Ketones Urine Trace (Negative); Leukocyte Esterase Urine Negative (Negative); Nitrate Urine Negative (Negative); Protein Urine Trace (Negative); Specific Gravity, Urine 1.019 (1.005-1.030); Urine Appearance Clear (CLEAR); Urine Color Yellow (Yellow)
[2025-04-07 04:22] LABS: Bacteria Urine None Seen /hpf; Hyaline Casts Urine 14.47 /lpf; RBC Urine 0-2 /hpf (0-2); Squamous Epithelial Cell Urine 0-5 /hpf (0-5); WBC Urine 0-5 /hpf (0-5)
[2025-04-07 04:34] LABS: Total Bilirubin 0.2 mg/dL (0.15-1.2)
--- NOTE | 2025-04-07 04:38 | ECG_ITS ---
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 Measurements Intervals [place] Rate: 54 P: 43 IL: 172 QRS: 29 QRSD: 92 T: 50 QT: 460 QTc: 437 Interpretive Statements SINUS BRADYCARDIA Compared to ECG 04/07/2025 03:27:09 No significant changes Electronically Signed On 04-09-2025 08:21:12 CDT by iJm Barajas M.D. [id number] [id number]
[2025-04-07 05:31] LABS: Troponin 5 2HR 29.44 ng/L (0-15)
[2025-04-07 05:39] LABS: Add Urine Culture? No; UA Slide Review UA Slide Review Perf
[2025-04-07 05:40] LABS: Troponin 5 2HR Delta -3.56 ABS# (0-10)
--- NOTE | 2025-04-07 06:02 | USCV_ITS ---
Edmund Villalpando Age: 89 Gender: M : 1935 Exam Date: 04/07/2025 07:51 Ordering Phys: Roxana Snyder MD Technologist: Exam Location: [facility] [place] Indication: post code BP: 153 / 64 HR: 70 Rhythm: Sinus Technical Quality: Adequate MEASUREMENTS (Male / Female) Normal Values 2D ECHO LV Diastolic Diameter PLAX 5.1 cm 4.2 - 5.9 / 3.9 - 5.3 cm IVS Diastolic Thickness 1.3 cm 0.6 - 1.0 / 0.6 - 0.9 cm IVS Systolic Thickness 1.9 cm LVPW Diastolic Thickness 1.3 cm 0.6 - 1.0 / 0.6 - 0.9 cm LVPW Systolic Thickness 1.3 cm LVOT Diameter 2.4 cm LV Ejection Fraction 2D Teich 66.2 % LV Ejection Fraction MOD 4C 68.7 % LV Ejection Fraction MOD 2C 56.8 % LV Ejection Fraction 2C AL 56.2 % LA Diameter 4.2 cm RA Systolic Volume 4C AL 39.0 ml RA Systolic Volume 4C MOD 38.5 ml LA Sys Volume AL 87.8 cm cubed LA Sys Volume Index AL 43.5 cm cubed/m squared Aorta at Sinotubular Diameter 3.3 cm M-MODE LA Ao Ratio MM 1.4 AV Cusp Separation MM 2.2 cm DOPPLER AV Peak Velocity 150.0 cm/s AV Area Cont Eq vti 3.6 cm squared AV Area Cont Eq pk 3.3 cm squared MV Peak Velocity 110.0 cm/s MV Area PHT 4.1 cm squared Mitral E to A Ratio 1.6 TV Peak Velocity 308.0 cm/s TR Peak Velocity 422.0 cm/s TR Peak Gradient 71.2 mmHg TV Peak E Velocity 121.0 cm/s PV Peak Velocity 111.0 cm/s FINDINGS Left Ventricle Normal left ventricular size and systolic function, EF 60%.mild left ventricular hypertrophy. No regional wall motion abnormalities. .Grade III/IV diastolic dysfunction (restrictive filling pattern), severely elevated filling pressures. Right Ventricle The right ventricle is normal in size and function. Right Atrium The right atrium is normal in size. Left Atrium Mildly increased left atrial size. Mitral Valve Mild mitral valve regurgitation. Aortic Valve Mild aortic valve regurgitation. Tricuspid Valve Trace tricuspid valve regurgitation. Pulmonic Valve Mild pulmonary valve regurgitation. Pericardium Trivial pericardial effusion. Aorta Normal aortic annulus size. IVC Inferior vena cava not visualized. CONCLUSIONS Normal left ventricular size and systolic function, EF 60%.mild left ventricular hypertrophy. No regional wall motion abnormalities. .Grade III/IV diastolic dysfunction (restrictive filling pattern), severely elevated filling pressures. Mildly increased left atrial size. Mild mitral valve regurgitation. Mild aortic valve regurgitation. Trace tricuspid valve regurgitation. Mild pulmonary valve regurgitation. Trivial pericardial effusion. There are no intracardiac masses. Compared to the study from 10/19/2023, there may not be a significant change Dr Kyle Sheldon MD [facility] (Electronically Signed) Final Date: 07 April 2025 16:34 S
--- NOTE | 2025-04-07 06:04 | PM.HP ---
Providers/Chief Complaint Admitting Physician: Is seen after 12 midnight at 6:[address] 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 at the bedside and gave all the history. Patient was found by the not breathing she called 911 as she could not wake up the patient to any alertness. The 911 told the to start CPR. Patient was still not responding when they 911 got there they felt for the pulse and found it to be absent. The 911 started having CPR for only no more than 1-2 compression on the chest, patient woke up. Patient then was brought to the emergency room pretty much alert and awake not confused. The had asked if tachybradycardia syndrome could cause this. This is part of the differential diagnosis. I have consulted cardiology to see patient and lay out thoughts. Patient at this time is stable patient had to be in ICU for close monitoring. Case have been discussed with early childhood aide classroom Dr. Sheldon and he will be seeing the patient. Patient is a minimum of 2 midnights for appropriate evaluation and care. Review of Systems General: Reports: 10 or more systems reviewed and unremarkable except in HPI and below Narrative: System review where significant for worsening left-sided hemiparesis musculoskeletal more otherwise unremarkable there is no speech and language problems. NIH it is 3 Const: Denies: fever(s), chills or body aches Eyes: Denies: change in vision, blurry vision or photophobia ENMT: Reports: hoarseness; Denies: throat pain, enlarged tonsils, odynophagia or nasal congestion Card: Denies: chest pain, palpitations, irregular heart rhythm, edema, swelling of feet/ankles, lightheadedness, pre-syncope, dyspnea on exertion or orthopnea Resp: Denies: dyspnea, productive cough, non-productive cough, wheezing, stridor, pain on inspiration, change in phlegm color, hemoptysis or chest congestion GI: Denies: abdominal pain, nausea, vomiting, hematemesis, coffee ground emesis, dysphagia, heartburn, diarrhea, constipation, GI cramping, change in stool character, hematochezia or melena : Denies: flank pain, dysuria, urinary frequency, urinary urgency, urinary hesitancy or hematuria Musc: Denies: neck pain, back pain, extremity pain, joint swelling, joint warmth or deformity Neuro: Denies: headache(s), numbness in extremities, weakness in extremities, sensory changes, difficulty walking, frequent falls, dizziness, vertigo, behavioral changes, Slurred speech present or seizure-like activity Psych: Denies: anxiety, depression, suicidal ideation or homicidal ideation Endo: Denies: polyuria, polydipsia, tired all the time, cold intolerance or hot flashes Piyush/Lymph: Denies: easy bruising or easy bleeding Medications/Allergies Home Medications ?Medication ?Instructions ?Recorded ?Confirmed ?Last Taken ?Type atorvastatin 20 mg tablet 20 mg PO QPM 05/09/23 03/02/25 02/17/24 History baclofen 10 mg tablet See Rx Instructions .Route .COMPLEX 05/09/23 03/02/25 02/17/24 History finasteride 5 mg tablet 5 mg PO DAILY 05/09/23 03/02/25 02/17/24 History hydralazine 100 mg tablet 100 mg PO TID 05/09/23 03/02/25 02/17/24 History aspirin 81 mg tablet,delayed 81 mg PO QAM 05/11/23 03/02/25 02/17/24 History release ferrous sulfate 27 mg iron tablet 27 mg PO DAILY 05/11/23 03/02/25 02/17/24 History tamsulosin 0.4 mg capsule 0.4 mg PO DAILY 30 days #30 caps 05/11/23 03/02/25 02/17/24 Rx cholecalciferol (vitamin D3) 25 25 mcg PO DAILY 10/19/23 03/02/25 02/17/24 History mcg (1,000 unit) capsule (Vitamin D3) citalopram 10 mg tablet 10 mg PO DAILY 10/19/23 03/02/25 02/17/24 History glucosamine sulf dipot 1 cap PO DAILY 10/19/23 03/02/25 02/17/24 History chlr,msm,chond 550 mg-C 30 mg-odessa 1 mg capsule (Glucosamine Chondroitin) losartan 100 mg tablet 100 mg PO DAILY 10/19/23 03/02/25 02/17/24 History vitamin A 2,400 mcg capsule 2,400 mcg PO DAILY 10/19/23 03/02/25 02/17/24 History vitamin B12 2,500 mcg-folic acid 1 tab PO DAILY 10/19/23 03/02/25 02/17/24 History 400 mcg disintegrating tablet vitamin E 268 mg (400 unit) capsule 268 mg PO DAILY 10/19/23 03/02/25 02/17/24 History metoprolol tartrate 25 mg tablet 25 mg PO BID PRN tacahycardia 120 10/20/23 03/02/25 Unknown Rx bpm or more #30 tabs amlodipine 5 mg tablet 5 mg PO DAILY 03/02/25 03/02/25 Unknown History donepezil 5 mg tablet 5 mg PO DAILY 03/02/25 03/02/25 Unknown History Allergies Allergy/AdvReac Type Severity Reaction Status Date / Time No Known Allergies Allergy Verified 04/07/25 03:27 PFSH Acute PFSH: Medical History Atrial fibrillation Hypertension Stroke-like symptoms AMS (altered mental status) Dysarthria Acute urinary retention Depression with anxiety CVA (cerebral vascular accident) Hyperlipidemia Dementia BPH (benign prostatic hyperplasia) Bradycardia No significant past medical history Surgical History History of cholecystectomy No significant past surgical history Family History Other Diabetes Social History Smoking and tobacco/nicotine status: former use of tobacco/nicotine Alcohol intake: never Vitals/I&O/Wt Last Vital Signs Temp 98.0 F 04/07/25 03:21 Pulse 49 L 04/07/25 06:00 Resp 14 04/07/25 06:00 BP 148/64 04/07/25 06:00 Pulse Ox 100 04/07/25 06:00 O2 Del Method Room Air 04/07/25 06:00 04/06/25 04/06/25 04/07/25 14:59 22:59 06:59 Intake Total 0 / 0 Balance 0 / 0 Weight last 48 hrs Weight 89.947 kg Physical Exam Narrative: Generally patient is doing okay and in no apparent distress, actually wanted to go home. Patient does have history of dementia is supportive of care. HEENT normocephalic/atraumatic neck neck is supple cardiovascular heart rate is regular lungs are clear abdomen is soft nontender nondistended unremarkable extremities intact no edema has good pulses neurology has no focality lab studies lab studies reviewed and noted. Data 04/07/25 03:30 04/07/25 03:30 Micro: Microbiology 04/07/25 03:30 Blood Culture - Preliminary Blood SPECIMEN COLLECTED 04/07/25 03:36 Blood Culture - Preliminary Blood SPECIMEN COLLECTED A&P Assessment and plan (1) Unresponsive episode: - With a history of tachybradycardia syndrome this could be cardio neuro syndrome process. - Patient admitted to stepdown unit - I had consulted cardiology and discussed case with Dr. Sheldon who is glad to see the patient. - - (2) Atrial fibrillation: - atrial fibrillation/history of tachybradycardia syndrome in the setting of transient unresponsiveness - Cardiology consulted for any inputs and thoughts - - Must continue to treat and optimize (3) Hypertension: - Patient has dehydration likely due to volume contraction and severe dehydration - Patient responded to IV hydration - - Patient did not take any blood pressure medication while in the hospital to allow some cerebral perfusion. (4) Tachy-priti syndrome: - Patient is with tachybradycardia syndrome cardiology consulted for input on this - Must continue to follow-up and optimize. (5) CHF (congestive heart failure): Acute on chronic diastolic heart failure ----not in any overt heart failure at this time. Continue to maintain , LVEF at 60%, grade 2 diastolic dysfunction with moderately elevated filling pressures. Closely monitor LEANDRO, kidney function Patient has a baseline history of CKD per , . Plan DVT prophylaxis: Lovenox 40 mg daily DNR/DNI PDMP PDMP Reviewed: Not Reviewed Attestations Medical Necessity Statement*: Unresponsiveness that has to do with underlining illness requiring evaluation also for at least 2 midnights stay for evaluation and care. Coding Level of Care Code 68877 Diagnoses Unresponsive episode R40.4 Paroxysmal atrial fibrillation I48.0 Atrial fibrillation type: paroxysmal Hypertension I10 Tachy-priti syndrome I49.5 CHF (congestive heart failure) I50.9 Time Spent (min) 60
--- NOTE | 2025-04-07 08:16 | USCV_ITS ---
Edmund Villalpando Age: 89 Gender: M : 1935 Exam Date: 04/07/2025 09:10 Ordering Phys: Joshua Forbes MD Technologist: Exam Location: [facility] – [place] Indication: cva Risk Factors: Previous Vascular Surgery: Right Brachial BP: / Left Brachial BP: / Right Left Velocity (cm/s) Spectral Plaque Velocity (cm/s) Spectral Plaque Syst/Diast Broadening Syst/Diast Broadening 114.90/22.80 Prox CCA 122.90/ 24.80 102.30/24.90 Hetro Mid CCA 93.40 / 20.10 Hetro 89.80/ 22.80 Hetro Distal CCA 117.80/ 16.10 Hetro 85.60/ 16.50 Hetro Prox ICA 90.30 / 17.90 Hetro 100.20/18.60 Hetro Mid ICA 74.20 / 9.90 Hetro 100.20/12.30 Distal ICA 81.40 / 11.70 112.80 ECA 126.50 1.10 ICA/CCA 0.80 Antegrade Vertebral Antegrade 36.50/ 10.60 cm/s 71.40/ 0.00 cm/s Bi Subclavian Bi 129.3 39.00 0 CONCLUSIONS Right ICA stenosis <50%. Moderate atheromatous plaque right carotid bulb/ICA. Left ICA stenosis <50%. Moderate atheromatous plaque left carotid bulb/ICA. Normal antegrade Doppler flow noted in the right vertebral artery. Normal antegrade Doppler flow noted in the left vertebral artery. Ander Monet MD (Electronically Signed) Final Date: 07 April 2025 14:00 S
--- NOTE | 2025-04-07 08:19 | USCV_ITS ---
Edmund Villalpando Age: 89 Gender: M : 1935 Exam Date: 04/07/2025 09:22 Ordering Phys: Joshua Forbes MD Technologist: Exam Location: [facility] [place]_ Indication: ? pe PROCEDURES: The venous duplex Doppler examination of both lower extremities was performed in the standard fashion. The following venous structures were evaluated: common femoral vein, profunda vein, proximal portion of the greater saphenous vein, superficial femoral vein, and the popliteal vein. In addition, the posterior tibial and peroneal trunk were evaluated. FINDINGS: Normal 2-D Doppler and augmentation and compressibility throughout the lower extremity venous structures. Additional imaging through the proximal calf veins also reveals no thrombus. Limited evaluation of the greater saphenous vein is patent with no thrombus. CONCLUSIONS No evidence of right lower extremity DVT. No evidence of left lower extremity DVT. Ander Monet MD (Electronically Signed) Final Date: 07 April 2025 13:58 S
[2025-04-07 08:57] LABS: Creatine Phosphokinase 73 U/L (39-308); NT Pro B Type Natriuretic Pept 2280 pg/mL (0-450)
--- NOTE | 2025-04-07 09:23 | ECG_ITS ---
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 Measurements Intervals [place] Rate: 50 P: 40 MT: 179 QRS: 14 QRSD: 89 T: 41 QT: 492 QTc: 451 Interpretive Statements SINUS BRADYCARDIA PROLONGED QT INTERVAL Compared to ECG 04/07/2025 04:38:58 Prolonged QT interval now present Electronically Signed On 04-09-2025 08:18:56 CDT by Jim Barajas M.D. [email or web address] [id number]
[2025-04-07 09:34] LABS: D Dimer 0.56 ug/mLFEU (0-0.59)
[2025-04-07 10:04] LABS: Troponin 5 6HR 31.87 ng/L (0-15)
[2025-04-07 10:12] LABS: Troponin 5 6HR Delta -1.13 ng/L (0-12)
[2025-04-07] MEDS: donepezil 5 MG Tablet PO (11:27)
[2025-04-07] MEDS: docusate sodium 100 mg Capsule PO ×2 (11:27→18:15)
[2025-04-07] MEDS: finasteride 5 mg Tablet PO (11:27)
[2025-04-07] MEDS: tamsulosin 0.4 mg Capsule PO (11:27)
[2025-04-07] MEDS: pantoprazole DR 40 mg Tablet PO (11:27)
[2025-04-07] MEDS: sodium chloride 0.9% 1,000 ML 75 ML IV (11:28)
[2025-04-07 12:22] LABS: Basophils % 0.3 %; Eosinophils # 0.1 10^3/uL (0.0-0.8); Eosinophils % 2.6 %; Hematocrit 30.6 % (37-53); Mean Corpuscular Hemoglobin 30.5 pg (27-33); Mean Corpuscular Volume 98.4 fl (82-101); Mean Platelet Volume 11.4 fL (7.4-10.4); Monocytes # 0.3 10^3/uL (0.2-0.9); Monocytes % 8.7 %; Neutrophils # 2.37 10^3/uL (1.8-7.7); Neutrophils % 62.1 %; Nucleated Red Blood Cells % 0 %; Platelet Count 92 10^3/cmm (157-399); Red Blood Count 3.11 10^6/uL (3.85-5.65); Red Cell Distribution Width 13.2 % (12.1-15.1); White Blood Count 3.81 10^3/uL (3.29-11.43)
[2025-04-07 12:35] LABS: Alanine Aminotransferase < 5 U/L (0-41); Albumin Level 3.6 g/dL (3.5-5.2); Alkaline Phosphatase 55 U/L (40-130); Anion Gap 12.1 (5-19); Aspartate Amino Transferase 12 U/L (0-40); Blood Urea Nitrogen 33 mg/dL (8-23); Calcium 8.6 mg/dL (8.5-10.5); Carbon Dioxide 23 mmol/L (22-29); Chloride 110 mmol/L (98-107); Creatinine Clr Calc Pharmacy 34.0359; Globulin 2.3 g/dL (1.3-4.6); Glucose 97 mg/dL (65-115); Magnesium 2.2 mg/dL (1.7-2.3); Osmolality Calculated 299 mOsm/kg (285-295); Phosphorus 2.6 mg/dL (2.5-4.5); Potassium 4.1 mmol/L (3.5-5.1); Sodium 141 mmol/L (136-145); Total Bilirubin 0.4 mg/dL (0.15-1.2); Total Protein 5.9 g/dL (6.6-8.7)
--- NOTE | 2025-04-07 13:06 | PC.NURSE ---
Dr. Forbes ordered to get a PTT before the heparin drip was started. Heparin drip has not been started due to PTT not coming back yet.
[2025-04-07] MEDS: heparin drip 25,000 UNIT/500 ML PREMIX 20 UNIT IV (13:50)
[2025-04-07] MEDS: heparin 5,000 unit/mL INJ 1 mL IVP (13:51)
--- OUTSIDE RECORDS SUMMARY | 2025-04-07 15:43 | XMS_ITS | Encounter Summary ---
Author Organization [facility] Address [address] [place] [address] Care Team Providers Care Bacteriology Research Assistant Name Role Phone Mike De La Cruz MD Primary Care Provider [phone] [phone] Encounter Details Date Type Department Care Team (Late st Contact Info) Description 12/26/2011 Ancillary Orders [facility] [address] [place] [address] Tamiko Paula MD [address] [place] [id number] Hip joint painful on movement Social History Tobacco Use Types Packs/Day Years Used Date Smoking Tobacco: Never Assessed Sex and Gender Information Value Date Recorded Sex Assigned at Not on file Legal Sex Male 5:07 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 no acute changes seen. 2. minimal osteoarthritis Narrative 12/26/2011 2:03 PM HEDGE FUND ACCOUNTANT Findings: AP view of the pelvis shows no pelvic fracture, diastasis or deformity. AP and Cleaves projection of each hip show no acute fracture or deformity. The femoral neck appears intact bilaterally. No subcortical lucency of the femoral heads is seen. Arthritic change appears minimal. Procedure Note Johnny Flores MD - 12/26/2011 Findings: AP view of the pelvis shows no pelvic fracture, diastasis or deformity. AP and Cleaves projection of each hip show no acute fracture or deformity. The femoral neck appears intact bilaterally. No subcortical lucency of the femoral heads is seen. Arthritic change appears minimal. IMPRESSION Impression: 1. no acute changes seen. 2. minimal osteoarthritis us Tamiko Paula MD DIAGNOSTIC IMAGING ORDERABL ES Final Result documented in this encounter Visit Diagnoses Diagnosis Hip joint painful on movement Pain in joint, pelvic region and thigh Hip joint painful on movement Pain in joint, pelvic region and thigh documented in this encounter Care Teams Bacteriology Research Assistant Relationship Specialty Start Date End Date Mike De La Cruz MD [address] [id number] PCP - General Family Practice 11/06/20 documented as of this encounter
--- OUTSIDE RECORDS SUMMARY | 2025-04-07 15:43 | XMS_ITS | Clinical Summary ---
Author Organization [facility] Address [address] [place] [address] Phone Care Team Providers Care Handstitching Machine Armhole Feller Name Role Phone Tamiko Paula MD Primary Care Provider Allergies No known active allergies Medications SAW PALMAASHISH ORAL Take 900 mg by mouth daily. Active aspirin (ECOTRIN EC) 81 mg Tablet, Delayed Release (E.C.) Take 81 mg by mouth daily. Active atorvastatin (LIPITOR) 20 mg tablet Take 20 mg by mouth daily. Active ferrous sulfate 134 mg (27 mg iron) Tablet Take 1 Tablet by mouth daily. Active finasteride (PROSCAR) 5 mg tablet Take 5 mg by mouth daily. 1 Active hydrALAZINE (APRESOLINE) 25 mg tablet Take 25 mg by mouth 3 times daily. 1 Active coenzyme Q10 100 mg Capsule Take 100 mg by mouth daily. Active baclofen (LIORESAL) 10 mg tabletIndications:Ch ronic musculoskeletal pain TAKE 1 TABLET BY MOUTH THREE TIMES DAILY NEEDED FOR PAIN 270 Tablet 2 2 Active losartan (COZAAR) 50 mg tablet Take 50 mg by mouth daily. Active bisacodyL (DULCOLAX) 5 mg Delayed Release tablet Take 5 mg by mouth 1 time daily as needed for Constipatio n. 8 Active Active Problems Problem Noted Date Diagnosed Date Anemia, chronic disease 09/27/2021 CHF (congestive heart failure) 04/06/2021 Bradycardia, unspecified 01/04/2021 Chronic kidney disease, stage 3 unspecified 12/20 Cerebral atherosclerosis 01/04/2021 Essential tremor 01/04/2021 Benign hypertension 01/04/2021 Melanocytic nevus of trunk 01/04/2021 SK (seborrheic keratosis) 01/04/2021 Occlusion of left vertebral artery 01/04/2021 Diverticulosis 01/04/2021 Lentigo 01/04/2021 Benign prostatic hyperplasia without lower urinary tract symptoms 01/04/2021 Vascular dementia 01/04/2021 Hypercholesterolemia 01/04/2021 History of skin cancer 01/04/2021 AK (actinic keratosis) 01/04/2021 Immunizations Immunization Administration Dates Next Due (SPIKEVAX) (12 YRS UP PRIMAR Y SERIES) COVID-19 VACCINE - [id number]-[id number](PF) 100 MCG/0.5 ML IM SUSP 01/25/2021,12/27/2020 INFLUENZA VACCINE HIGH DOSE QUADRIVALENT 65 YR UP PF IM 07/25/2021,11/02/2020 INFLUENZA VACCINE QUADRIVALENT 3 YR UP PF IM INFLUENZA VACCINE QUADRIVALENT 6 MOS UP PF IM Influenza Vaccine High Dose 65+ Yrs IM 9,09/05/2016 Social History Tobacco Use Types Packs/Day Years Used Date Smoking Tobacco: Former Cigarettes Q uit: 10/22/1979 Smokeless Tobacco: Former Comments:Quit smoking: unkno wn quit day Alcohol Use Standard Drinks/Week Comments No 0 (1 standard drink = 0.6 oz pur e alcohol) Social Connections Answer Date Recorded In a typical week, how many times do you talk on the phone with family, friends, or neighbors? Never 11/02/2020 How often do you get together with friends or re latives? Never 11/02/2020 How often do you attend alevism or hinduism serv ices? Never 11/02/2020 Do you belong to any clubs o r organizations such as alevism groups, unions, fraternal or athletic groups, or school groups? Yes 11/02/2020 Attends Club or Organization Meetings Not on tonya e 11/02/2020 Marital Status Not on file 11/02/2020 Financial Resource Strain Answer Date R ecorded How hard is it for you to pa y for the very basics like food, housing, medical care, and heating? Not hard at all 11/02/2020 Food Insecurity Answer Date Recorded Within the past 12 months, y ou worried that your food would run out before you got the money to buy more. Never true 11/02/19 21 Within the past 12 months, t he food you bought just didn't last and you didn't have money to get more. Never true 11/02/2020 Transportation Needs Answer Date Record ed In the past 12 months, has l ack of transportation kept you from medical appointments or from getting medications? No 10/22 In the past 12 months, has l ack of transportation kept you from meetings, work, or from getting things needed for daily living? No 11/02/2020 Feeling Safe Answer Date Recorded Are you in a relationship wi th someone who hurts you emotionally and/or physically? 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 Gender Identity Not on file Sexual Orientation Not on file Last Filed Vital Signs Vital Sign Reading Time Taken Comments Blood Pressure 184/72 02/09/2023 12:30 AM CDT Pulse 42 02/09/2023 12:30 AM CDT Temperature 37 C (98.6 F) 02/08/2023 10:55 PM CDT Respiratory Rate 18 02/09/2023 12:30 AM CDT Oxygen Saturation 97% 02/09/2023 12:30 AM CDT Inhaled Oxygen Concentration - - Weight 78.7 kg (173 lb 9.6 oz) 02/08/2023 10:55 PM CDT Height 175.3 cm (5' 9 ) 02/08/2023 10:55 PM CDT Body Mass Index 25.64 02/08/2023 10:55 PM CDT Plan of Treatment Health Maintenance Due Date Last Done Comments DTAP/TDAP/TD VACCINES (1 - Tdap) 1956 ZOSTER VACCINE (1 of 2) 1987 RSV VACCINE (60+ or ) (1 - 1-dose 75+ series) 2012 INFLUENZA VACCINE (#1) 2024 4, 07/25/2021, 11/02/2020, Additional history exists COVID-19 Vaccine (2023-2 5 season) 2025 07/29/2024, 01/18/2024, 03/08/2022, Additional history exists PNEUMOCOCCAL VACCINE 50+ YEARS Completed 07/29/2024 Insurance BCBS MEDICARE HMO Care Teams Handstitching Machine Armhole Feller Relationship Specialty Start Date End Date Tamiko Paula MD [address] [place] [address] PCP - General Family Practice 06/08/22
--- OUTSIDE RECORDS SUMMARY | 2025-04-07 15:43 | XMS_ITS | Encounter Summary ---
Author Organization [facility] Address [address] [place] [address] Care Team Providers Care Programmer Operator Numerical Control Name Role Phone Mike De La Cruz MD Primary Care Provider [phone] Encounter Details Date Type Department Care Team (Late st Contact Info) Description 09/04/2007 Outpatient Historical HIS RAD [facility] Thai Cartagena MD [address] [facility] [address] [place] [address] Social History Tobacco Use Types Packs/Day Years Used Date Smoking Tobacco: Never Assessed Sex and Gender Information Value Date Recorded Sex Assigned at Not on file Legal Sex Male 5:[address] STENOGRAPHER Gender Identity Not on file Sexual Orientation Not on file documented as of this encounter Plan of Treatment Not on file documented as of this encounter Visit Diagnoses Not on filedocumented in this encounter Care Teams Programmer Operator Numerical Control Relationship Specialty Start Date End Date Mike De La Cruz MD [address] [facility] [address] [place] [address] PCP - General Family Practice 11/06/20 documented as of this encounter
--- OUTSIDE RECORDS SUMMARY | 2025-04-07 15:43 | XMS_ITS | Clinical Summary ---
Author Organization [facility] Address [address] [address] Phone Care Team Providers Care Billing Representative Name Role Phone Mike De La Cruz MD Primary Care Provider [phone] [phone] Allergies No known active allergies Medications atorvastatin (LIPITOR) 20 mg tablet Take 20 mg by mouth late in the day. Active finasteride (PROSCAR) 5 mg tablet Take 5 mg by mouth daily. Active bisacodyl (DULCOLAX) 5 mg Delayed Release tablet Take 5 mg by mouth 1 time daily as needed for Constipatio n. Active hydrALAZINE (APRESOLINE) 25 mg tablet Take 1 Tablet by mouth 3 times daily. 0 Active melatonin 10 mg Tablet Take 10 mg by mouth nightly as needed. Active coenzyme Q10 100 mg Capsule Take 100 mg by mouth daily. Active ferrous sulfate (High Potency Iron) 27 mg iron Tablet Take 1 Tablet by mouth daily. Active aspirin (ECOTRIN EC) 81 mg Tablet, Delayed Release (E.C.) Take 81 mg by mouth daily. Active SAW PALMETTO ORAL Take 900 mg by mouth daily. Active baclofen (LIORESAL) 10 mg tabletIndications:Ch ronic musculoskeletal pain Take 1 Tablet (10 mg) by mouth 3 times daily as needed for Pain. 270 Tablet 4 1 Active lisinopriL (PRINIVIL) 40 mg tablet Take 20 mg by mouth daily. 1 Active furosemide (LASIX) 20 mg tabletIndications:Co ngestive heart failure, unspecified HF chronicity, unspecified heart failure type (CMS/HCC) Take 1 Tablet (20 mg) by mouth two times daily, 7 hours apart. 60 Tablet 1 Active potassium chloride (KLOR-CON) 10 mEq Extended Release tabletIndications:Co ngestive heart failure, unspecified HF chronicity, unspecified heart failure type (CMS/HCC) Take 1 Tablet (10 mEq) by mouth daily with breakfast. 30 Tablet 1 Active Active Problems Problem Noted Date Diagnosed Date CHF (congestive heart failure) 04/06/2021 Bradycardia, unspecified 01/04/2021 Chronic kidney disease, stage 3 unspecified 12/20 Cerebral atherosclerosis 01/04/2021 Diverticulosis 01/04/2021 Essential tremor 01/04/2021 Hypercholesterolemia 01/04/2021 History of skin cancer 01/04/2021 Benign hypertension 01/04/2021 Lentigo 01/04/2021 Melanocytic nevus of trunk 01/04/2021 AK (actinic keratosis) 01/04/2021 Benign prostatic hyperplasia without lower urinary tract symptoms 01/04/2021 SK (seborrheic keratosis) 01/04/2021 Vascular dementia 01/04/2021 Occlusion of left vertebral artery 01/04/2021 Immunizations Immunization Administration Dates Next Due (SPIKEVAX) (12 YRS UP PRIMAR Y SERIES) COVID-19 VACCINE - MRNA-1273(PF) 100 MCG/0.5 ML IM SUSP 12/27/2020 INFLUENZA VACCINE HIGH DOSE QUADRIVALENT 65 YR UP PF IM 11/02/2020 INFLUENZA VACCINE QUADRIVALENT 3 YR UP PF IM INFLUENZA VACCINE QUADRIVALENT 6 MOS UP PF IM Influenza Vaccine High Dose 65+ Yrs IM 9,09/05/2016 Social History Tobacco Use Types Packs/Day Years Used Date Smoking Tobacco: Former Cigarettes Q uit: 10/22/1979 Smokeless Tobacco: Former Comments:unknown quit day Alcohol Use Standard Drinks/Week Comments No 0 (1 standard drink = 0.6 oz pur e alcohol) Social Connections Answer Date Recorded In a typical week, how many times do you talk on the phone with family, friends, or neighbors? Never 11/02/2020 How often do you get together with friends or re latives? Never 11/02/2020 How often do you attend lutheran or pentecostalism serv ices? Never 11/02/2020 Do you belong to any clubs o r organizations such as lutheran groups, unions, fraternal or athletic groups, or [...] things needed for daily living? No 11/02/2020 Education Answer Date Recorded What is the highest level of school you have completed or the highest degree you have received? 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 Gender Identity Not on file Sexual Orientation Not on file Last Filed Vital Signs Vital Sign Reading Time Taken Comments Blood Pressure 118/60 04/06/2021 10:56 AM CDT Pulse 45 04/06/2021 10:56 AM CDT Temperature 36.5 C (97.7 F) 04/06/2021 10:56 AM CDT Respiratory Rate 18 04/06/2021 10:56 AM CDT Oxygen Saturation 97% 04/06/2021 10:56 AM CDT Inhaled Oxygen Concentration - - Weight 78.9 kg (174 lb) 04/06/2021 10:56 AM CDT Height 177.8 cm (5' 10 ) 04/06/2021 10:56 AM CDT Body Mass Index 24.97 04/06/2021 10:56 AM CDT Plan of Treatment Health Maintenance Due Date Last Done Comments DTAP/TDAP/TD VACCINES (1 - Tdap) 1954 PNEUMOCOCCAL VACCINE 50+ YEA RS (1 of 1 - PCV) 1987 ZOSTER VACCINE (1 of 2) 1987 RSV VACCINE (60+ or ) (1 - 1-dose 75+ series) 2012 INFLUENZA VACCINE (#1) 2024 , 06/16/2019, 07/17/2018, Additional history exists COVID-19 Vaccine (2 - 2023-2 5 season) 2024 12/27/2020 [place] Preventative Visit/Annual Wellness Visit 10/22/2024 11/02/2020 Insurance [facility] [place] [address] Care Teams Billing Representative Relationship Specialty Start Date End Date Mike De La Cruz MD [address] [address] PCP - General Family Practice 11/06/20
--- NOTE | 2025-04-07 16:54 | PM.CONSULT ---
Providers/Reason For Consult Consulting Physician/Specialty*: YEN Sheldon MD/cardiology Reason for Consult*: Patient with a history of a tachy or priti arrhythmias, presenting with a near syncopal episode Requesting Physician: Dr. Leidy hewitt Attending Physician: Joshua Forbes MD Primary Care Provider: Nehal Cormier NP History of Present Illness History of Present Illness Edmund Villalpando is a 89 year old male he is admitted to hospital through the emergency room where he presented with complaints of an unresponsive state/near syncopal episode. He was found to have some bradycardia. He has a questionable history of atrial fibrillation and tachy or priti arrhythmias. Cardiology consult is requested for further cardiac evaluation recommendations. This patient is known to have dementia. Most of the information is from his and also from the medical records. This patient apparently has been in his baseline state of health up until yesterday when he was found to be with altered mental status, diminished respiratory effort and making some gurgling sounds. Later on he was found to be very pale and sweaty. He was holding his hands crossed across the chest. His called 911. The initial evaluation by the EMS revealed? No pulse or respiration.He had a brief CPR which woke him up. He was found to have a heart rate in the 50s with altered mental status, in the ER. Since the ICU admission, his mental status has improved. But still he is very forgetful. Denies any chest pain. No unusual shortness of breath. He has a history of chronic kidney disease and questionable history of CVA. No history for liver disease or bleeding disorders. Remote history of smoking cigars. No relevant family history. Review of Systems Narrative: CONSTITUTIONAL: No fever or chills. EYES: No blurring of vision or other visual disturbances lately. ENT: No hoarseness of voice, auditory disturbances or sore throat. CARDIOVASCULAR: As mentioned above. RESPIRATORY: As mentioned above GASTROINTESTINAL: No hematemesis or melena. GENITOURINARY: History of BPH and chronic kidney disease INTEGUMENTARY: No skin rashes or history of skin cancer. NEURO: history of TIA/dementia; new syncopal episode as mentioned above PSYCHIATRIC: No history of psychosis or major depression. HEMATOLOGIC: No bleeding disorders or significant anemia. ENDOCRINE: No history of polyuria or polydipsia. MUSCULOSKELETAL: No recent joint pain or swelling. ALLERGY/IMMUNOLOGY: As mentioned above. Medications/Allergies Home Medications ?Medication ?Instructions ?Recorded ?Confirmed ?Last Taken ?Type atorvastatin 20 mg tablet 20 mg PO QPM 05/09/23 04/07/25 04/06/25 History baclofen 10 mg tablet 10 mg PO QID 05/09/23 04/07/25 04/06/25 History finasteride 5 mg tablet 5 mg PO DAILY 05/09/23 04/07/25 04/06/25 History hydralazine 100 mg tablet 100 mg PO TID 05/09/23 04/07/25 04/06/25 History aspirin 81 mg tablet,delayed 81 mg PO QAM 05/11/23 04/07/25 04/06/25 History release ferrous sulfate 27 mg iron tablet 27 mg PO DAILY 05/11/23 04/07/25 04/06/25 History tamsulosin 0.4 mg capsule 0.4 mg PO DAILY 30 days #30 caps 05/11/23 04/07/25 04/06/25 Rx cholecalciferol (vitamin D3) 25 25 mcg PO DAILY 10/19/23 04/07/25 04/06/25 History mcg (1,000 unit) capsule (Vitamin D3) citalopram 10 mg tablet 10 mg PO DAILY 10/19/23 04/07/25 04/06/25 History glucosamine sulf dipot 1 cap PO DAILY 10/19/23 04/07/25 04/06/25 History chlr,msm,chond 550 mg-C 30 mg-odessa 1 mg capsule (Glucosamine Chondroitin) losartan 100 mg tablet 100 mg PO DAILY 10/19/23 04/07/25 04/06/25 History vitamin A 2,400 mcg capsule 2,400 mcg PO DAILY 10/19/23 04/07/25 04/06/25 History vitamin B12 2,500 mcg-folic acid 1 tab PO DAILY 10/19/23 04/07/25 04/06/25 History 400 mcg disintegrating tablet vitamin E 268 mg (400 unit) capsule 268 mg PO DAILY 10/19/23 04/07/25 04/06/25 History metoprolol tartrate 25 mg tablet 25 mg PO BID PRN tacahycardia 120 10/20/23 04/07/25 Unknown Rx bpm or more #30 tabs amlodipine 5 mg tablet 5 mg PO DAILY 03/02/25 04/07/25 04/06/25 History memantine 5 mg tablet 5 mg PO BID 04/07/25 04/07/25 04/06/25 History Allergies Allergy/AdvReac Type Severity Reaction Status Date / Time No Known Allergies Allergy Verified 04/07/25 03:27 Current Medications Generic Name Dose Route Start Last Admin Trade Name Vivekq PRN Reason Stop Dose Admin Docusate Sodium 100 mg 04/07/25 10:55 04/07/25 11:27 Docusate Sodium 100 Mg Capsule PO 100 mg BID MACI Administration Donepezil HCl 5 mg 04/07/25 10:55 04/07/25 11:27 Donepezil 5 Mg Tablet PO 5 mg DAILY MACI Administration Finasteride 5 mg 04/07/25 10:55 04/07/25 11:27 Finasteride 5 Mg Tablet PO 5 mg DAILY MACI Administration Sodium Chloride 1,000 mls @ 75 mls/hr 04/07/25 10:55 04/07/25 11:28 Sodium Chloride 0.9% IV 75 mls/hr .[id number] MACI Administration Heparin Sodium/Sodium Chloride 25,000 unit in 500 mls @ 0 mls/hr 04/07/25 13:45 04/07/25 13:50 Heparin Drip IV 13.89 unit/kg/hr CONT MACI 20 mls/hr Protocol Administration Per Protocol Pantoprazole Sodium 40 mg 04/07/25 10:55 04/07/25 11:[address] 40 Mg Tablet PO 40 mg DAILY MACI Administration Tamsulosin HCl 0.4 mg 04/07/25 10:55 04/07/25 11:27 Tamsulosin 0.4 Mg Capsule PO 0.4 mg DAILY MACI Administration PFSH Acute PFSH: Medical History Bradycardia Atrial fibrillation Hypertension Stroke-like symptoms AMS (altered mental status) Dysarthria Acute urinary retention Depression with anxiety CVA (cerebral vascular accident) Hyperlipidemia Dementia BPH (benign prostatic hyperplasia) No significant past medical history Surgical History History of cholecystectomy No significant past surgical history Family History Other Diabetes Social History Smoking and tobacco/nicotine status: former use of tobacco/nicotine Alcohol intake: never Vitals/I&O/Wt Last Vital Signs Temp 98.1 F 04/07/25 11:01 Pulse 50 L 04/07/25 15:42 Resp 16 04/07/25 14:15 BP 169/61 04/07/25 14:15 Pulse Ox 99 04/07/25 14:15 O2 Del Method Room Air 04/07/25 14:15 04/07/25 04/07/25 04/07/25 06:59 14:59 22:59 Intake Total 0 / 0 Balance 0 / 0 Weight last 48 hrs Weight 158 lb 11.725 oz Weight 198 lb 4.8 oz Physical Exam Narrative: GENERAL: The patient is alert and oriented to place and person . Not in any acute distress. Elderly male somewhat emaciated HEENT: No significant pallor, icterus or lymphadenopathy.Oral cavity: There are no mucous membrane lesions. NECK: Trachea appears to be central. No masses noted. No JVD or thyromegaly appreciated. RESPIRATORY: Chest is symmetrical. No intercostals muscle retraction or any accessory muscle activation. There is no chest wall tenderness. Breath sounds are heard bilaterally. No rales or rhonchi heard. No evidence of any consolidation. BREASTS: Deferred. HEART: The heart sounds are normal. No S3 or S4. Short systolic murmur in the left base. No pericardial rub ABDOMEN: No vessel pulsations or distention. No tenderness. No organomegaly appreciated. Bowel sounds are normally heard. : Deferred. RECTAL: Deferred. LYMPHATIC: No lymphadenopathy noted in the neck. EXTREMITIES: No edema or cyanosis. No clubbing. MUSCULOSKELETAL: No acute joint deformities or swelling SKIN: There are no significant rashes or ecchymosis NEUROPSYCHIATRIC: The patient is alert and oriented x3. Appears to be in a good mood. No tremors or rigidity noted. Data 04/08/25 03:08 04/08/25 03:08 Other Labs: Laboratory Last Values WBC 3.61 10^3/uL (3.29-11.43) 04/08/25 03:08 RBC 2.90 10^6/uL (3.85-5.65) L 04/08/25 03:08 Hgb 9.20 g/dL (11.27-16.99) L 04/08/25 03:08 Hct 28.5 % (37-53) L 04/08/25 03:08 MCV 98.3 fl (82-101) 04/08/25 03:08 MCH 31.7 pg (27-33) 04/08/25 03:08 MCHC 32.3 g/dL (30-55) 04/08/25 03:08 RDW 13.1 % (12.1-15.1) 04/08/25 03:08 Plt Count 92 10^3/cmm (157-399) L 04/08/25 03:08 MPV 11.3 fL (7.4-10.4) H 04/08/25 03:08 Neut % (Auto) 59.0 % 04/08/25 03:08 Lymph % (Auto) 27.4 % 04/08/25 03:08 Emanuel % (Auto) 9.1 % 04/08/25 03:08 Eos % (Auto) 3.6 % 04/08/25 03:08 Baso % (Auto) 0.6 % 04/08/25 03:08 Neut # (Auto) 2.13 10^3/uL (1.8-7.7) 04/08/25 03:08 Lymph # (Auto) 1.0 10^3/uL (0.8-4.8) 04/08/25 03:08 Emanuel # (Auto) 0.3 10^3/uL (0.2-0.9) 04/08/25 03:08 Eos # (Auto) 0.1 10^3/uL (0.0-0.8) 04/08/25 03:08 Baso # (Auto) 0.0 10^3/uL (0.0-0.1) 04/08/25 03:08 Nucleated RBC % (auto) 0 % 04/08/25 03:08 Nucleated RBCs # 0.0 /100WBC 04/08/25 03:08 APTT 31.8 SECONDS (23.9-36.7) 04/08/25 08:50 D-Dimer 0.56 ug/mLFEU (0-0.59) 04/07/25 03:30 Sodium 141 mmol/L (136-145) 04/08/25 03:08 Potassium 4.3 mmol/L (3.5-5.1) 04/08/25 03:08 Chloride 110 mmol/L (98-107) H 04/08/25 03:08 Carbon Dioxide 24 mmol/L (22-29) 04/08/25 03:08 Anion Gap 11.3 (5-19) 04/08/25 03:08 BUN 28 mg/dL (8-23) H 04/08/25 03:08 Creatinine 1.6 mg/dL (0.7-1.2) H 04/08/25 03:08 GFR Calculation Not Reportable 04/08/25 03:08 Glucose 104 mg/dL (65-115) 04/08/25 03:08 Calculated Osmolality 298 mOsm/kg (285-295) H 04/08/25 03:08 Lactic Acid 0.6 mmol/L (0.5-2.2) 04/07/25 03:30 Calcium 8.5 mg/dL (8.5-10.5) 04/08/25 03:08 Phosphorus 2.6 mg/dL (2.5-4.5) 04/07/25 11:55 Magnesium 2.2 mg/dL (1.7-2.3) 04/07/25 11:55 Total Bilirubin 0.3 mg/dL (0.15-1.2) 04/08/25 03:08 AST 11 U/L (0-40) 04/08/25 03:08 ALT < 5 U/L (0-41) 04/08/25 03:08 Alkaline Phosphatase 58 U/L (40-130) 04/08/25 03:08 Creatine Kinase 73 U/L (39-308) 04/07/25 03:30 Creatine Kinase 74 U/L (39-308) 04/07/25 03:30 Troponin T Baseline 33 ng/L (0-15) H 04/07/25 03:30 Troponin T 120 Minute 29.44 ng/L (0-15) H 04/07/25 05:10 Delta Troponin T -3.56 ABS# (0-10) L 04/07/25 05:10 Troponin T Hi Sens 6Hr 31.87 ng/L (0-15) H 04/07/25 09:23 Troponin T Hi Sens 6Hr Delta -1.13 ng/L (0-12) L 04/07/25 09:23 C-Reactive Protein 3.0 mg/L (0.0-4.9) 04/07/25 03:30 NT-Pro-B Natriuret Pep 2280 pg/mL (0-450) H 04/07/25 03:30 Total Protein 5.5 g/dL (6.6-8.7) L 04/08/25 03:08 Albumin 3.3 g/dL (3.5-5.2) L 04/08/25 03:08 Globulin 2.2 g/dL (1.3-4.6) 04/08/25 03:08 Urine Color Yellow (Yellow) 04/07/25 04:00 Urine Appearance Clear (CLEAR) 04/07/25 04:00 Urine pH 5.0 (5-7) 04/07/25 04:00 Ur Specific [place] 1.019 (1.005-1.030) 04/07/25 04:00 Urine Protein Trace (Negative) A 04/07/25 04:00 Urine Glucose (UA) Negative (Normal) 04/07/25 04:00 Urine Ketones Trace (Negative) 04/07/25 04:00 Urine Blood Negative (Negative) 04/07/25 04:00 Urine Nitrate Negative (Negative) 04/07/25 04:00 Urine Bilirubin Negative (Negative) 04/07/25 04:00 Urine Urobilinogen 1.0 mg/dL (Negative) 04/07/25 04:00 Ur Leukocyte Esterase Negative (Negative) 04/07/25 04:00 Urine RBC 0-2 /hpf (0-2) 04/07/25 04:00 Urine WBC 0-5 /hpf (0-5) 04/07/25 04:00 Ur Squamous Epith Cells 0-5 /hpf (0-5) 04/07/25 04:00 Amorphous Sediment Not Reportable 04/07/25 04:00 Urine Bacteria None seen /hpf (NONE) 04/07/25 04:00 Hyaline Casts 14.47 /lpf 04/07/25 04:00 Micro: Microbiology 04/07/25 03:30 Blood Culture - Preliminary Blood SPECIMEN COLLECTED 04/07/25 03:36 Blood Culture - Preliminary Blood SPECIMEN COLLECTED A&P Assessment and plan (1) CHF (congestive heart failure): Currently compensated. May continue on the current medications (2) Atrial fibrillation: Currently he is in sinus bradycardia. May continue to monitor on telemetry. (3) Hypertension: Blood pressure seems to be under control. May continue on the current management (4) Bradycardia: Patient's apparently has a chronic slow heart rate, as per his . Considering the possibility of a high degree AV block causing the above syndrome is a consideration. If he has no significant bradyarrhythmia in the hospital, we may send him home with an event monitor (5) Unresponsive episode: Currently resolved. Etiology is unclear Plan For further evaluation of the patient's cardiac status, a Myocardial perfusion imaging would be appropriate. We may go ahead and do schedule the patient for a Lexiscan/sestamibi/ sestamibi stress test. Based on the results of the above tests and the patient's clinical progress, further recommendations will be made. We may consider doing an event monitor, if the stress test is unremarkable. Thank you for the opportunity to evaluate this patient and make these recommendations PDMP PDMP Reviewed: Not Reviewed Consult Attestations Medical Necessity Statement: Patient requires continued hospital stay for close monitoring and further management Coding Level of Care Code 03007 Diagnoses Diastolic congestive heart failure, unspecified HF chronicity I50.30 Heart failure type: diastolic Heart failure chronicity: unspecified Paroxysmal atrial fibrillation I48.0 Atrial fibrillation type: paroxysmal Primary hypertension I10 Hypertension type: primary hypertension Bradycardia R00.1 Unresponsive episode R40.4
--- NOTE | 2025-04-07 17:46 | ECG_ITS ---
[facility] Test Date: 2025-04-08 Pat Name: Edmund Villalpando Department: Room: [facility] Gender: Male Physician: : [id number] Requested By: Joshua Forbes Order Number: [id number] Reading MD: Interpretive Statements Lung unchanged pre/post procedure; Intraprocedure shortess of breath; Symptoms resoled by discharge [email or web address]
[2025-04-07] MEDS: ATORVASTATIN 10 MG TABLET 20 MG PO (18:15)
--- NOTE | 2025-04-07 18:32 | P.PN_ITS ---
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, able to move bilateral lower extremities, pupils equal round reactive to light, denies any chest discomfort, he tells me he does not remember the events of last night well, he is normotensive, on room air, does have bradycardia Vitals/I&O/Wt Last Vital Signs Temp 98.1 F 04/07/25 11:01 Pulse 49 L 04/07/25 17:30 Resp 14 04/07/25 16:15 BP 166/99 04/07/25 17:30 Pulse Ox 96 04/07/25 17:30 O2 Del Method Room Air 04/07/25 17:30 04/07/25 04/07/25 04/07/25 06:59 14:59 22:59 Intake Total 0 / 0 Balance 0 / 0 Weight last 48 hrs Weight 72 kg Weight 89.947 kg Physical Exam 2 Const: COMMON NORMALS: no acute distress EXAM LIMITATIONS: altered mental status ORIENTATION/CONSCIOUSNESS: Yes awake and Yes oriented to person; not oriented to place and not oriented to time Eye: COMMON NORMALS: Equal, round and reactive pupils present and EOMs intact bilaterally PUPIL: Yes Equal, round and reactive pupils present Resp: COMMON NORMALS: normal respiratory effort, No retractions, No use of accessory muscles and clear to auscultation bilaterally AUSCULTATION: clear to auscultation bilaterally Cardio: COMMON NORMALS: regular rate, regular rhythm, S1 normal heart sound present and S2 normal heart sound present RATE: regular rate RHYTHM: r egular rhythm HEART SOUNDS: S1 normal heart sound present and S2 normal heart sound present GI: COMMON NORMALS: Normal to inspection, nondistended, normoactive bowel sounds present and non-tender Extremity: COMMON NORMALS: no calf tenderness and no pedal edema Neuro: SENSORIUM/ORIENTATION: Yes oriented to person, No oriented to place and No oriented to time OTHER: In follow some neurologic testing, no facial droop, slurring his words able to smile for me moves bilateral upper extremities, moves bilateral extremities, cannot discern any focal weakness He is quite forgetful, requires frequent redirection and Data 04/07/25 11:55 04/07/25 11:55 Micro: Microbiology 04/07/25 03:30 Blood Culture - Preliminary Blood SPECIMEN COLLECTED 04/07/25 03:36 Blood Culture - Preliminary Blood SPECIMEN COLLECTED A&P Assessment and plan (1) Unresponsive episode: (2) Atrial fibrillation: (3) Hypertension: (4) Tachy-priti syndrome: (5) CHF (congestive heart failure): (6) Collapse: Episode of unresponsive, collapse - Cardiac arrest episode? - Does have bradycardia -EMS reported on arrival patient was not breathing, could not feel a pulse initially, had 1 compression and patient came to, pulse palpated -ER provider spoke to patient's , patient suddenly stopped breathing, was barely breathing, unresponsive until EMS arrived Plan - Cardiac echo - Carotid artery ultrasound -D-dimer, venous ultrasound - N.p.o. midnight, for cardiac stress test tomorrow - Does have mildly elevated troponins, EKG no acute ST-T wave changes, does have bradycardia, continue heparin drip - Continue aspirin, statin - Cardiology consulted Tachybradycardia syndrome - Continue telemetry monitoring CHF - Not in exacerbation - Monitor Acute encephalopathy -UA within normal limits - Chest x-ray no focal pneumonia -Head CT within normal limits - Could be underlying dementia - Continue to monitor mentation History of dementia SIENNA on CKD, creatinine 1.6, monitor Plan DVT prophylaxis: Lovenox 40 mg daily Full code PDMP PDMP Reviewed: Not Reviewed Attestations 2 Medical Necessity Statement*: Patient requires hospitalization for episode of unresponsiveness, collapse, inpatient, greater than 2 midnights Diagnoses Unresponsive episode R40.4 Paroxysmal atrial fibrillation I48.0 Atrial fibrillation type: paroxysmal Hypertension I10 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
[2025-04-07 21:27] LABS: Partial Thromboplastin Time > 250.0 SECONDS (23.9-36.7)
[2025-04-08] VITALS (47 sets, daily range): BP systolic 104–183; BP diastolic 50–87; PULSE 41–78; RESP 10–21; TEMP 36.2–36.4; O2SAT 92–100
[2025-04-08 03:21] LABS: Basophils % 0.6 %; Eosinophils # 0.1 10^3/uL (0.0-0.8); Eosinophils % 3.6 %; Hematocrit 28.5 % (37-53); Lymphocytes % 27.4 %; Mean Corpuscular HGB Conc 32.3 g/dL (30-55); Mean Corpuscular Hemoglobin 31.7 pg (27-33); Mean Corpuscular Volume 98.3 fl (82-101); Mean Platelet Volume 11.3 fL (7.4-10.4); Monocytes # 0.3 10^3/uL (0.2-0.9); Monocytes % 9.1 %; Neutrophils # 2.13 10^3/uL (1.8-7.7); Nucleated Red Blood Cells % 0 %; Platelet Count 92 10^3/cmm (157-399); Red Cell Distribution Width 13.1 % (12.1-15.1); White Blood Count 3.61 10^3/uL (3.29-11.43)
[2025-04-08 03:43] LABS: Alanine Aminotransferase < 5 U/L (0-41); Albumin Level 3.3 g/dL (3.5-5.2); Alkaline Phosphatase 58 U/L (40-130); Anion Gap 11.3 (5-19); Aspartate Amino Transferase 11 U/L (0-40); Blood Urea Nitrogen 28 mg/dL (8-23); Calcium 8.5 mg/dL (8.5-10.5); Carbon Dioxide 24 mmol/L (22-29); Chloride 110 mmol/L (98-107); Creatinine Clr Calc Pharmacy 34.0359; Globulin 2.2 g/dL (1.3-4.6); Glucose 104 mg/dL (65-115); Osmolality Calculated 298 mOsm/kg (285-295); Potassium 4.3 mmol/L (3.5-5.1); Sodium 141 mmol/L (136-145); Total Bilirubin 0.3 mg/dL (0.15-1.2); Total Protein 5.5 g/dL (6.6-8.7)
[2025-04-08] MEDS: aspirin 81 mg EC Tablet PO (06:03)
[2025-04-08] MEDS: regadenoson 0.4 Mg/5 ml Syringe IVP (07:32)
--- NOTE | 2025-04-08 08:03 | PC.SOCIAL ---
IMM Update pg 2 of IMM Updated and reviewed w/ patient. Copy provided and copy dated, initialed and placed in chart.
[2025-04-08] MEDS: tamsulosin 0.4 mg Capsule PO (08:47)
[2025-04-08] MEDS: pantoprazole DR 40 mg Tablet PO (08:47)
[2025-04-08] MEDS: docusate sodium 100 mg Capsule PO (08:47)
[2025-04-08] MEDS: finasteride 5 mg Tablet PO (08:47)
[2025-04-08] MEDS: citalopram 20 mg Tablet 10 MG PO (08:47)
[2025-04-08] MEDS: donepezil 5 MG Tablet PO (08:47)
[2025-04-08 09:17] LABS: Partial Thromboplastin Time 31.8 SECONDS (23.9-36.7)
--- NOTE | 2025-04-08 09:27 | PM.PN ---
Subjective Medications: Medication Review Details: Current Medications Acetaminophen (Acetaminophen 325 Mg Tablet) 650 mg PO Q6H PRN PRN Reason: Mild/Mod Pain Or Temp >/= 101 Aminophylline (Aminophylline 25 Mg/Ml Sdv 20 Ml) 25 mg IVP Q2M PRN PRN Reason: see dose instructions Stop: 04/09/25 06:36 Aspirin (Aspirin 81 Mg Ec Tablet) 81 mg PO QAM [facility] Last Admin: 04/08/25 06:03 Dose: 81 mg Atorvastatin Calcium (Atorvastatin 10 Mg Tablet) 20 mg PO QPM [facility] Last Admin: 04/07/25 18:15 Dose: 20 mg Citalopram Hydrobromide (Citalopram 20 Mg Tablet) 10 mg PO DAILY [facility] Last Admin: 04/08/25 08:47 Dose: 10 mg Docusate Sodium (Docusate Sodium 100 Mg Capsule) 100 mg PO BID [facility] Last Admin: 04/08/25 08:47 Dose: 100 mg Donepezil HCl (Donepezil 5 Mg Tablet) 5 mg PO DAILY [facility] Last Admin: 04/08/25 08:47 Dose: 5 mg Finasteride (Finasteride 5 Mg Tablet) 5 mg PO DAILY [facility] Last Admin: 04/08/25 08:47 Dose: 5 mg Heparin Sodium (Porcine) (Heparin 5,000 Unit/Ml Inj 1 Ml) 0 unit IVP PRN PRN; Protocol PRN Reason: Heparin Weight Based Protocol -Subsequent Bolus Heparin Sodium/Sodium Chloride (Heparin Drip) 25,000 unit in 500 mls @ 0 mls/hr IV CONT [facility]; Protocol Last Titration: 04/08/25 08:50 Dose: 6.94 unit/kg/hr, 10 mls/hr Morphine Sulfate (Morphine 4 Mg/Ml Sdv 1 Ml) 2 mg IVP Q4H PRN PRN Reason: SEVERE PAIN Nitroglycerin (Nitroglycerin 0.4 Mg Sublingual Tablet) 0.4 mg SUBLINGUAL Q5M PRN PRN Reason: CHEST PAIN Stop: 04/09/25 06:36 Ondansetron HCl (Ondansetron 2 Mg/Ml Sdv 2 Ml) 4 mg IVP Q8H PRN PRN Reason: vomiting, or N/V if npo Ondansetron HCl (Ondansetron 2 Mg/Ml Sdv 2 Ml) 4 mg IVP Q2M PRN PRN Reason: NAUSEA Pantoprazole Sodium (Pantoprazole Dr 40 Mg Tablet) 40 mg PO DAILY [facility] Last Admin: 04/08/25 08:47 Dose: 40 mg Senna (Sennosides 8.6 Mg Tablet) 17.2 mg PO BEDTIME [facility] Last Admin: 04/07/25 21:07 Dose: Not Given Tamsulosin HCl (Tamsulosin 0.4 Mg Capsule) 0.4 mg PO DAILY [facility] Last Admin: 04/08/25 08:47 Dose: 0.4 mg Vitals/I&O/Wt Last Vital Signs Temp 97.5 F L 04/08/25 04:00 Pulse 61 04/08/25 07:45 Resp 18 04/08/25 06:00 BP 120/50 04/08/25 07:45 Pulse Ox 94 04/08/25 06:00 O2 Del Method Room Air 04/08/25 06:00 04/07/25 04/08/25 04/08/25 22:59 06:59 14:59 Intake Total 633 / 633 47.167 / 680.167 0 / 0 Balance 633 / 633 47.167 / 680.167 0 / 0 Weight last 48 hrs Weight 154 lb 5.177 oz Weight 158 lb 11.725 oz Weight 198 lb 4.8 oz Physical Exam Narrative: GENERAL: The patient is alert and oriented to place and person . Not in any acute distress. Elderly male somewhat emaciated HEENT: No significant pallor, icterus or lymphadenopathy.Oral cavity: There are no mucous membrane lesions. NECK: Trachea appears to be central. No masses noted. No JVD or thyromegaly appreciated. RESPIRATORY: Chest is symmetrical. No intercostals muscle retraction or any accessory muscle activation. There is no chest wall tenderness. Breath sounds are heard bilaterally. No rales or rhonchi heard. No evidence of any consolidation. BREASTS: Deferred. HEART: The heart sounds are normal. No S3 or S4. Short systolic murmur in the left base. No pericardial rub ABDOMEN: No vessel pulsations or distention. No tenderness. No organomegaly appreciated. Bowel sounds are normally heard. : Deferred. RECTAL: Deferred. LYMPHATIC: No lymphadenopathy noted in the neck. EXTREMITIES: No edema or cyanosis. No clubbing. MUSCULOSKELETAL: No acute joint deformities or swelling SKIN: There are no significant rashes or ecchymosis NEUROPSYCHIATRIC: The patient is alert and oriented x3. Appears to be in a good mood. No tremors or rigidity noted. Data 04/08/25 03:08 04/08/25 03:08 Micro: Microbiology 04/07/25 03:30 Blood Culture - Preliminary Blood NEGATIVE TO DATE 04/07/25 03:36 Blood Culture - Preliminary Blood NEGATIVE TO DATE A&P Assessment and plan (1) CHF (congestive heart failure): Currently compensated. May continue on the current medications (2) Atrial fibrillation: Currently he is in sinus bradycardia. May continue to monitor on telemetry. (3) Hypertension: Blood pressure seems to be under control. May continue on the current management (4) Bradycardia: Patient's apparently has a chronic slow heart rate, as per his . Considering the possibility of a high degree AV block causing the above syndrome is a consideration. If he has no significant bradyarrhythmia in the hospital, we may send him home with an event monitor (5) Unresponsive episode: Currently resolved. Etiology is unclear Plan For further evaluation of the patient's cardiac status, a Myocardial perfusion imaging would be appropriate. We may go ahead and do schedule the patient for a Lexiscan/sestamibi/ sestamibi stress test. Based on the results of the above tests and the patient's clinical progress, further recommendations will be made. We may consider doing an event monitor, if the stress test is unremarkable. Thank you for the opportunity to evaluate this patient and make these recommendations PDMP PDMP Reviewed: Not Reviewed Coding Level of Care Code Acute Code for Chg Fwd Diagnoses Diastolic congestive heart failure, unspecified HF chronicity I50.30 Heart failure type: diastolic Heart failure chronicity: unspecified Paroxysmal atrial fibrillation I48.0 Atrial fibrillation type: paroxysmal Primary hypertension I10 Hypertension type: primary hypertension Bradycardia R00.1 Unresponsive episode R40.4
--- NOTE | 2025-04-08 09:34 | PC.NURSE ---
Patient's Heparin drip was paused for stress test this morning. PTT came back at 31.8. Heparin drip was resumed at the same rate it was paused and Dr. Forbes ordered to check another PTT in 4 hours.
[2025-04-08] MEDS: amlodipine 10 mg Tablet PO (11:45)
[2025-04-08 14:13] LABS: Partial Thromboplastin Time 49.3 SECONDS (23.9-36.7)
[2025-04-08] MEDS: heparin 5,000 unit/mL INJ 1 mL IVP (15:03)
[2025-04-08] MEDS: hyDRALAzine 50 mg Tablet PO (15:03)
--- NOTE | 2025-04-08 16:08 | P.DS_ITS ---
Discharge Providers Date of Admission: 04/07/25 10:55 Date of Discharge: April 08, 2025 Attending Provider at Admission: Roxana Snyder MD Attending Provider at Discharge: Joshua Forbes MD Primary Care Provider: Nehal Cormier NP Diagnoses at Discharge Discharge Diagnosis (1) CHF (congestive heart failure): Status: Acute Qualifiers: Heart failure type: diastolic Heart failure chronicity: unspecified Qualified Code(s): I50.30 - Unspecified diastolic (congestive) heart failure (2) Atrial fibrillation: Status: Acute Qualifiers: Atrial fibrillation type: paroxysmal Qualified Code(s): I48.0 - Paroxysmal atrial fibrillation (3) Hypertension: Status: Acute Qualifiers: Hypertension type: primary hypertension Qualified Code(s): I10 - Essential (primary) hypertension (4) Bradycardia: Status: Acute (5) Unresponsive episode: Status: Acute Reason for Visit Reason for Visit: AMS Hospital Course Hospital Course This is a 89-year-old male with past medical history of hypertension, tachybradycardia syndrome, atrial fibrillation, who presents to [facility] due to unresponsive episode Episode of unresponsive, collapse - Does have bradycardia -EMS reported on arrival patient was not breathing, could not feel a pulse initially, had 1 compression and patient came to, pulse palpated -ER provider spoke to patient's , patient suddenly stopped breathing, was barely breathing, unresponsive until EMS arrive - No acute telemetry events during his hospitalization - cardiac echo CONCLUSIONS Normal left ventricular size and systolic function, EF 60%.mild left ventricular hypertrophy. No regional wall motion abnormalities. .Grade III/IV diastolic dysfunction (restrictive filling pattern), severely elevated filling pressures. Mildly increased left atrial size. Mild mitral valve regurgitation. Mild aortic valve regurgitation. Trace tricuspid valve regurgitation. Mild pulmonary valve regurgitation. Trivial pericardial effusion. There are no intracardiac masses. Compared to the study from 10/19/2023, there may not be a significant change -- EKG no acute ST-T wave changes, no significant delta troponin, nonetheless completed 48 hours of anticoagulant therapy cradiac stress test IMPRESSIONS 1. Uniform myocardial tracer uptake with no significant Perfusion abnormalities. 2. Normal LV ejection fraction of 72% 3 LV wall motion analysis revealing no gross wall motion abnormalities. 4. Normal LV volume 5. Significantly elevated transient ischemic dilatation ratio, may suggest endocardial ischemia. However the positive predictive value of this finding is limited especially in view of the absence of any other specific symptoms head ct CT/CT head wo con* [id number] IMPRESSION: Mild small vessel disease. No evidence of acute intracranial process. carotid duplex CONCLUSIONS Right ICA stenosis <50%. Moderate atheromatous plaque right carotid bulb/ICA. Left ICA stenosis <50%. Moderate atheromatous plaque left carotid bulb/ICA. Normal antegrade Doppler flow noted in the right vertebral artery. Normal antegrade Doppler flow noted in the left vertebral artery. venous ultrasound CONCLUSIONS No evidence of right lower extremity DVT. No evidence of left lower extremity DVT. -Patient's D-dimer was 0.56, no chest pain, no shortness of breath, is on room air - Could not perform CT angiogram the chest given creatinine 1.6, however likelihood of pulmonary embolism was fairly unlikely - Patient was monitored as inpatient, ambulated without significant symptomatology, and assessed by physical therapy, recommended discharge with home exercise program - Did have bradycardia, no bundle-branch blocks or AV blocks, discharged with event monitor in place - Patient will be discharged today with a close follow-up with cardiology - I have stopped his metoprolol on discharge due to bradycardia - He does have evidence of orthostatic hypotension since [facility] blood pressure does drop to 133/69 from 168/72 upon standing - This could be combination of patient's memantine, and blood pressure medications - Decrease his dose of losartan to 50 mg daily, hydralazine, to 50 mg 3 times daily - Follow-up with primary care - Follow-up with cardiology On discharge patient is alert oriented x 2, following all commands, does have evidence of dementia, is afebrile, blood cultures negative, urinalysis within normal limits, chest x-ray within normal limits Physical Exam Const: COMMON NORMALS: no acute distress ORIENTATION/CONSCIOUSNESS: Yes awake, Yes oriented to person and Yes oriented to place; not oriented to time Resp: COMMON NORMALS: normal respiratory effort, No retractions, No use of accessory muscles and clear to auscultation bilaterally AUSCULTATION: clear to auscultation bilaterally Cardio: COMMON NORMALS: regular rate, regular rhythm, S1 normal heart sound present and S2 normal heart sound present RATE: regular rate RHYTHM: regular rhythm HEART SOUNDS: S1 normal heart sound present and S2 normal heart sound present GI: COMMON NORMALS: Normal to inspection, nondistended, normoactive bowel sounds present and non-tender Extremity: COMMON NORMALS: no pedal edema Neuro: SENSORIUM/ORIENTATION: Yes oriented to person, Yes oriented to place and No oriented to time Psych: COMMON NORMALS: mental status grossly normal Discharge Data Studies Completed and Pending Completed Studies During Hospitalization Category Date Time Status CT head wo con* [id number] Stat Cat Scan 04/07/25 03:23 Completed Sestamibi Stress Test Request Routine Exams 04/07/25 17:46 Draft XR chest 1V portable [id number] Stat Exams 04/07/25 03:23 Completed NM cara perf SPECT r/s* [id number] Routine Nuc Med 04/08/25 17:46 Completed CV carotid duplex BI* [id number] Routine Ultrasound 04/07/25 08:16 [place] [id number] Routine Ultrasound 04/07/25 08:19 Completed CV. echo complete* [id number] Stat Ultrasound 04/07/25 06:02 Completed Pending at discharge Category Date Time Status Blood Culture Stat Lab 04/07/25 03:30 Results Complete Blood Count w/Auto AM LABS Lab 04/09/25 04:00 Ordered Complete Blood Count w/Auto AM LABS Lab 04/10/25 04:00 Ordered Comprehensive Metabolic Panel AM LABS Lab 04/09/25 04:00 Ordered Comprehensive Metabolic Panel AM LABS Lab 04/10/25 04:00 Ordered PTT [Partial Thromboplastin Time] Timed Lab 04/08/25 21:09 Ordered Platelet Count Q2D Lab 04/09/25 04:00 Ordered Platelet Count Q2D Lab 04/11/25 04:00 Ordered Radiology Impressions Chest X-Ray 04/07/25 03:23 IMPRESSION: No significant change. Mild chronic pulmonary findings. Otherwise no evidence of acute pulmonary process. Head CT 04/07/25 03:23 IMPRESSION: Mild small vessel disease. No evidence of acute intracranial process. Laboratory Results WBC 3.61 10^3/uL (3.29-11.43) 04/08/25 03:08 RBC 2.90 10^6/uL (3.85-5.65) L 04/08/25 03:08 Hgb 9.20 g/dL (11.27-16.99) L 04/08/25 03:08 Hct 28.5 % (37-53) L 04/08/25 03:08 MCV 98.3 fl (82-101) 04/08/25 03:08 MCH 31.7 pg (27-33) 04/08/25 03:08 MCHC 32.3 g/dL (30-55) 04/08/25 03:08 RDW 13.1 % (12.1-15.1) 04/08/25 03:08 Plt Count 92 10^3/cmm (157-399) L 04/08/25 03:08 MPV 11.3 fL (7.4-10.4) H 04/08/25 03:08 Neut % (Auto) 59.0 % 04/08/25 03:08 Lymph % (Auto) 27.4 % 04/08/25 03:08 [place] % (Auto) 9.1 % 04/08/25 03:08 Eos % (Auto) 3.6 % 04/08/25 03:08 Baso % (Auto) 0.6 % 04/08/25 03:08 Neut # (Auto) 2.13 10^3/uL (1.8-7.7) 04/08/25 03:08 Lymph # (Auto) 1.0 10^3/uL (0.8-4.8) 04/08/25 03:08 [place] # (Auto) 0.3 10^3/uL (0.2-0.9) 04/08/25 03:08 Eos # (Auto) 0.1 10^3/uL (0.0-0.8) 04/08/25 03:08 Baso # (Auto) 0.0 10^3/uL (0.0-0.1) 04/08/25 03:08 Nucleated RBC % (auto) 0 % 04/08/25 03:08 Nucleated RBCs # 0.0 /100WBC 04/08/25 03:08 APTT 49.3 SECONDS (23.9-36.7) H D 04/08/25 13:57 D-Dimer 0.56 ug/mLFEU (0-0.59) 04/07/25 03:30 Sodium 141 mmol/L (136-145) 04/08/25 03:08 Potassium 4.3 mmol/L (3.5-5.1) 04/08/25 03:08 Chloride 110 mmol/L (98-107) H 04/08/25 03:08 Carbon Dioxide 24 mmol/L (22-29) 04/08/25 03:08 Anion Gap 11.3 (5-19) 04/08/25 03:08 BUN 28 mg/dL (8-23) H 04/08/25 03:08 Creatinine 1.6 mg/dL (0.7-1.2) H 04/08/25 03:08 GFR Calculation Not Reportable 04/08/25 03:08 Glucose 104 mg/dL (65-115) 04/08/25 03:08 Calculated Osmolality 298 mOsm/kg (285-295) H 04/08/25 03:08 Lactic Acid 0.6 mmol/L (0.5-2.2) 04/07/25 03:30 Calcium 8.5 mg/dL (8.5-10.5) 04/08/25 03:08 Phosphorus 2.6 mg/dL (2.5-4.5) 04/07/25 11:55 Magnesium 2.2 mg/dL (1.7-2.3) 04/07/25 11:55 Total Bilirubin 0.3 mg/dL (0.15-1.2) 04/08/25 03:08 AST 11 U/L (0-40) 04/08/25 03:08 ALT < 5 U/L (0-41) 04/08/25 03:08 Alkaline Phosphatase 58 U/L (40-130) 04/08/25 03:08 Creatine Kinase 73 U/L (39-308) 04/07/25 03:30 Creatine Kinase 74 U/L (39-308) 04/07/25 03:30 Troponin T Baseline 33 ng/L (0-15) H 04/07/25 03:30 Troponin T 120 Minute 29.44 ng/L (0-15) H 04/07/25 05:10 Delta Troponin T -3.56 ABS# (0-10) L 04/07/25 05:10 Troponin T Hi Sens 6Hr 31.87 ng/L (0-15) H 04/07/25 09:23 Troponin T Hi Sens 6Hr Delta -1.13 ng/L (0-12) L 04/07/25 09:23 C-Reactive Protein 3.0 mg/L (0.0-4.9) 04/07/25 03:30 NT-Pro-B Natriuret Pep 2280 pg/mL (0-450) H 04/07/25 03:30 Total Protein 5.5 g/dL (6.6-8.7) L 04/08/25 03:08 Albumin 3.3 g/dL (3.5-5.2) L 04/08/25 03:08 Globulin 2.2 g/dL (1.3-4.6) 04/08/25 03:08 Urine Color Yellow (Yellow) 04/07/25 04:00 Urine Appearance Clear (CLEAR) 04/07/25 04:00 Urine pH 5.0 (5-7) 04/07/25 04:00 Ur Specific [place] 1.019 (1.005-1.030) 04/07/25 04:00 Urine Protein Trace (Negative) A 04/07/25 04:00 Urine Glucose (UA) Negative (Normal) 04/07/25 04:00 Urine Ketones Trace (Negative) 04/07/25 04:00 Urine Blood Negative (Negative) 04/07/25 04:00 Urine Nitrate Negative (Negative) 04/07/25 04:00 Urine Bilirubin Negative (Negative) 04/07/25 04:00 Urine Urobilinogen 1.0 mg/dL (Negative) 04/07/25 04:00 Ur Leukocyte Esterase Negative (Negative) 04/07/25 04:00 Urine RBC 0-2 /hpf (0-2) 04/07/25 04:00 Urine WBC 0-5 /hpf (0-5) 04/07/25 04:00 Ur Squamous Epith Cells 0-5 /hpf (0-5) 04/07/25 04:00 Amorphous Sediment Not Reportable 04/07/25 04:00 Urine Bacteria None seen /hpf (NONE) 04/07/25 04:00 Hyaline Casts 14.47 /lpf 04/07/25 04:00 Vitals Last Vital Signs Temp 97.2 F L 04/08/25 13:00 Pulse 56 L 04/08/25 14:15 Resp 14 04/08/25 14:15 BP 131/62 04/08/25 14:15 Pulse Ox 100 04/08/25 14:15 O2 Del Method Room Air 04/08/25 14:15 Discharge Plan Discharge Patient Disposition: Home Condition: Stable Prescriptions: Continued atorvastatin 20 mg tablet 20 mg PO QPM finasteride 5 mg tablet 5 mg PO DAILY tamsulosin 0.4 mg Capsule 0.4 mg PO DAILY 30 Days Qty: 30 3RF aspirin 81 mg Tablet,Delayed Release (Dr/Ec) 81 mg PO QAM ferrous sulfate 27 mg iron Tablet 27 mg PO DAILY citalopram 10 mg tablet 10 mg PO DAILY vitamin A 2,400 mcg Capsule 2,400 mcg PO DAILY vitamin E 268 mg (400 unit) Capsule 268 mg PO DAILY cholecalciferol (vitamin D3) [Vitamin D3] 25 mcg (1,000 unit) Capsule 25 mcg PO DAILY Glucosamine Chondroitin 550-30-1 mg Capsule 1 cap PO DAILY vitamin P43-quicl acid 2,500-400 mcg Tablet,Disintegrating 1 tab PO DAILY memantine 5 mg tablet 5 mg PO BID Changed amlodipine 5 mg tablet 10 mg PO DAILY 30 Days Qty: 60 0RF hydralazine 100 mg tablet 50 mg PO TID 30 Days Qty: 45 0RF losartan 100 mg tablet 50 mg PO DAILY 30 Days Qty: 15 0RF Discontinued baclofen 10 mg tablet 10 mg PO QID metoprolol tartrate 25 mg tablet 25 mg PO BID PRN (Reason: tacahycardia 120 bpm or more) Qty: 30 0RF Rx Instructions: Take if persistent tachycardia 120 bpm or more Discharge Orders: Discharge Order (Routine); Ordered 04/08/25 Ordered By: Joshua Forbes Other Ambulatory Orders: MCT/Event Monitor 30 Days (Routine) Timeframe: 1 Day Facility: [facility] - Location: Radiology Ordered By: Joshua Forbes Referrals: Nehal Cormier [Other] - 04/16/25 11:00 am Referral Note: inpatient stay icu , bradycardia ,altered mental status fax records to [phone] [facility].Deloris Meredith FNP [Nurse Practitioner, Cardiology] - 04/15/25 2:00 pm Discharge Diet: Cardiac Discharge Activity: Resume usual activity Patient Instructions: Opioid Safety Activity Restrictions/Additional Instructions: -if any episode of chest pain, or unresponsiveness please call 911 Discharge Attestations Time Spent in Discharge Care*: greater than 30 min Quality Metrics Clinical Quality Measures [ No reported AMI, CVA or VTE this stay] Coding Level of Care Code 31376 Total time (in minutes) for Discharge: 45 Diagnoses Diastolic congestive heart failure, unspecified HF chronicity I50.30 Heart failure type: diastolic Heart failure chronicity: unspecified Paroxysmal atrial fibrillation I48.0 Atrial fibrillation type: paroxysmal Primary hypertension I10 Hypertension type: primary hypertension Bradycardia R00.1 Unresponsive episode R40.4
--- NOTE | 2025-04-08 17:40 | PC.NURSE ---
Patient was given all discharge information and all prescriptions. Education on event monitor was given, on how to use it and how to take care of it and when to return it. All Ivs were discontinued. Patient was stable during discharge.
--- NOTE | 2025-04-08 17:46 | NMCV_ITS ---
NM cara perf SPECT r/s* [id number] Edmund Villalpando Age: 89 Gender: M : 1935 Exam Date: 04/08/2025 06:42 Ordering Phys: Joshua Forbes MD Technologist: TANNA Gentile Exam Location: [facility] Indications: CP STRESS TEST Please see separate stress test report in [facility] for full findings IMAGE PROTOCOL Rest/Stress 1 Lexiscan Day Radiopharmaceutical Dose (mCi) Administration Site Administered by Rest: Tc-99m 10.8 IV TANNA Joseph Sestamibi Stress:Tc-99m 32.6 IV TANNA Joseph Sestamibi Rest: 08-Apr-2025 60 Discovery 630 Stress: 08-Apr-2025 30 Discovery 630 0.4mg Lexiscan. Images obtained in supine and prone position. SPECT RESULTS Technical Quality: Good Raw Data Analysis: Normal Image Corrections: No attenuation or motion correction applied Summed Stress Score: 0 Summed Rest Score: 0 Summed Difference Score: 0 PERFUSION FINDINGS Fairly uniform myocardial tracer uptake with no significant perfusion abnormality FUNCTIONAL RESULTS (calculated via Gated SPECT) Stress Image LV EF (%): 72 Stress EDV (mL):127 TID: 1.54 Stress ESV (mL):36 FUNCTIONAL FINDINGS: Segmental wall motion analysis revealing no gross wall motion abnormalities. Significantly elevated transient ischemic dilatation ratio 1.54 IMPRESSIONS 1. Uniform myocardial tracer uptake with no significant Perfusion abnormalities. 2. Normal LV ejection fraction of 72% 3 LV wall motion analysis revealing no gross wall motion abnormalities. 4. Normal LV volume 5. Significantly elevated transient ischemic dilatation ratio, may suggest endocardial ischemia. However the positive predictive value of this finding is limited especially in view of the absence of any other specific symptoms Dr Kyle Sheldon MD [facility] (Electronically Signed) Final Date: 08 April 2025 09:37 S
== END 2025-04-08 17:11 | disposition home or self-care (01) | DRG 308 ==
LOC: ER 08:05 → ICU 13:56
PROVIDERS: Admitting Provider Internal Medicine; Emergency Provider Emergency Medicine; PCP Nurse Practitioner Family; Visit Provider Family Medicine
DX: I49.5 Sick sinus syndrome (principal); I50.33 Acute on chronic diastolic (congestive) heart failure; I13.0 Hypertensive heart and chronic kidney disease with heart failure and stage 1 through stage 4 chronic kidney disease, or unspecified chronic kidney disease; G93.40 Encephalopathy, unspecified; N17.9 Acute kidney failure, unspecified; N18.9 Chronic kidney disease, unspecified; I48.0 Paroxysmal atrial fibrillation; R40.4 Transient alteration of awareness; F03.90 Unspecified dementia, unspecified severity, without behavioral disturbance, psychotic disturbance, mood disturbance, and anxiety; Z79.82 Long term (current) use of aspirin; D63.1 Anemia in chronic kidney disease; F41.8 Other specified anxiety disorders; E78.5 Hyperlipidemia, unspecified; N40.0 Benign prostatic hyperplasia without lower urinary tract symptoms; Z87.891 Personal history of nicotine dependence
CPT/HCPCS: 36415; 70450; 71045; 78452; 80053; 81001; 82550; 83605; 83735; 83880; 84100; 84484; 85025; 85378; 85730; 86140; 87040; 93005; 93017; 93306; 93880; 93970; 96375; 97116; 97161; 97167; 99285; A9500; J1644; J2785; J7030; J9999

== ENCOUNTER → 2025-04-15 14:03 | Outpatient (BNVA) | payer MEDICARE, SELFPAY | PROVIDERS: PCP Nurse Practitioner Family; Visit Provider Nurse Practitioner Family | DX: I48.0 Paroxysmal atrial fibrillation (principal); I11.0 Hypertensive heart disease with heart failure; I50.30 Unspecified diastolic (congestive) heart failure; R00.1 Bradycardia, unspecified; R41.82 Altered mental status, unspecified | CPT/HCPCS: 99214 ==

== ENCOUNTER 2025-04-28 18:38 | Inpatient (IN) | payer MEDICARE, SELFPAY ==
[2025-04-28] VITALS (10 sets, daily range): BP systolic 149–176; BP diastolic 61–96; PULSE 45–87; RESP 10–24; TEMP 36.6; O2SAT 95–99
--- NOTE | 2025-04-28 18:42 | XRR_ITS ---
PROCEDURE INFORMATION: Exam: XR Chest Exam date and time: 04/28/2025 7:07 PM Age: 89 years old Clinical indication: Chest wall pain; Additional info: Cp TECHNIQUE: Imaging protocol: Radiologic exam of the chest. Views: 1 view. COMPARISON: CR (CHEST, ) 04/07/2025 3:39 AM FINDINGS: Lungs: Predominantly linear and reticular bibasilar opacities favoring atelectasis and/or scar. No new airspace disease. Pleural spaces: Trace pleural fluid could not be entirely excluded but no large effusion. No pneumothorax. Heart/Mediastinum: Electronic device projects over the mediastinum. Stable cardiomediastinal contours. Bones/joints: Old right rib fractures. No acute osseous findings. XR/XR chest 1V portable [id number] IMPRESSION: Bibasilar scarring and atelectasis but no acute findings.
--- NOTE | 2025-04-28 18:43 | ECG_ITS ---
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1935 Requested By: Karuna Curran Order Number: [id number] Reading MD: ISABELLA BREWSTER Measurements Intervals [place] Rate: 58 P: 39 [place]: 169 QRS: 2 QRSD: 90 T: 49 QT: 458 QTc: 451 Interpretive Statements SINUS BRADYCARDIA SEPTAL MYOCARDIAL INFARCTION , OF INDETERMINATE AGE [40+ ms Q WAVE IN V1/V2] INTERPRETATION BASED ON A DEFAULT AGE OF 40 YEARS Compared to ECG 04/07/2025 11:00:55 Myocardial infarct finding now present Prolonged QT interval no longer present Electronically Signed On 04-28-2025 21:33:41 CDT by ISABELLA BREWSTER [id number]
--- NOTE | 2025-04-28 18:43 | W.ED.GENADLT ---
HPI - General Adult General: Chief complaint: Chest Pain Stated complaint: Low HR Time Seen by Provider: 04/28/25 18:38 Source: patient and EMS Mode of arrival: EMS Limitations: no limitations History of Present Illness: 10-year-old man EMS was called out for chest pain on the right patient was unresponsive bradycardic into the 30s had similar episode a month ago. Given the mantra pain his heart rates improved he is now awake and alert per EMS and states that he did complain of some chest pain here he states he is not having any pain he has had history of bradycardia in the past Associated symptoms: Reports syncope; Deny chest pain, dyspnea, headache(s), nausea, rash or vomiting Related Data Home Medications ?Medication ?Instructions ?Recorded ?Confirmed atorvastatin 20 mg tablet 20 mg PO QPM 05/09/23 04/15/25 finasteride 5 mg tablet 5 mg PO DAILY 05/09/23 04/15/25 aspirin 81 mg tablet,delayed 81 mg PO QAM 05/11/23 04/15/25 release ferrous sulfate 27 mg iron tablet 27 mg PO DAILY 05/11/23 04/15/25 cholecalciferol (vitamin D3) 25 25 mcg PO DAILY 10/19/23 04/15/25 mcg (1,000 unit) capsule (Vitamin D3) citalopram 10 mg tablet 10 mg PO DAILY 10/19/23 04/15/25 glucosamine sulf dipot 1 cap PO DAILY 10/19/23 04/15/25 chlr,msm,chond 550 mg-C 30 mg-odessa 1 mg capsule (Glucosamine Chondroitin) vitamin B12 2,500 mcg-folic acid 1 tab PO DAILY 10/19/23 04/15/25 400 mcg disintegrating tablet vitamin E 268 mg (400 unit) capsule 268 mg PO DAILY 10/19/23 04/15/25 memantine 5 mg tablet 5 mg PO BID 04/07/25 04/15/25 Previous Rx's ?Medication ?Instructions ?Recorded tamsulosin 0.4 mg capsule 0.4 mg PO DAILY 30 days #30 caps 05/11/23 amlodipine 5 mg tablet 10 mg (2 x 5 mg) PO DAILY 30 days 04/08/25 #60 tabs hydralazine 100 mg tablet 50 mg (1/2 x 100 mg) PO TID 30 04/08/25 days #45 tabs losartan 100 mg tablet 50 mg (1/2 x 100 mg) PO DAILY 30 04/08/25 days #15 tabs Allergies Allergy/AdvReac Type Severity Reaction Status Date / Time No Known Allergies Allergy Verified 04/15/25 14:13 Review of Systems Const: Denies: fever(s), chills, body aches or change in appetite ENMT: Denies: throat pain or dental pain Card: Reports: irregular heart rhythm and syncope; Denies: chest pain Resp: Denies: dyspnea GI: Denies: abdominal pain, nausea, vomiting or diarrhea Musc: Denies: neck pain or back pain Skin/Breast: Denies: rash Neuro: Denies: headache(s) PFSH ED PFSH: Medical History Bradycardia Atrial fibrillation Hypertension Stroke-like symptoms AMS (altered mental status) Dysarthria Acute urinary retention Depression with anxiety CVA (cerebral vascular accident) Hyperlipidemia Dementia BPH (benign prostatic hyperplasia) No significant past medical history Surgical History History of cholecystectomy No significant past surgical history Family History Other Diabetes Social History Smoking and tobacco/nicotine status: former use of tobacco/nicotine Alcohol intake: never Physical Exam Const: COMMON NORMALS: no acute distress, patient oriented x3 and healthy appearing HENMT: COMMON NORMALS: normocephalic and atraumatic HEAD & SCALP: normocephalic and atraumatic Eye: COMMON NORMALS: conjunctivae normal CONJUNCTIVA: Yes conjunctivae normal Neck/C-Spine: COMMON NORMALS: full ROM and supple Chest: COMMONS NORMALS: normal inspection of the chest Resp: COMMON NORMALS: normal respiratory effort, No retractions, No use of accessory muscles and clear to auscultation bilaterally AUSCULTATION: clear to auscultation bilaterally Cardio: COMMON NORMALS: regular rhythm and No murmurs present (Cardio) RATE: bradycardic RHYTHM: regular rhythm GI: COMMON NORMALS: Normal to inspection, nondistended, normoactive bowel sounds present, Soft to palpation, non-tender and no masses PALPATION: Yes Soft to palpation Extremity: COMMON NORMALS: normal to inspection and full ROM Neuro: COMMON NORMALS: patient oriented x3, moves all extremities and no focal motor deficits Psych: COMMON NORMALS: mental status grossly normal, Normal thought process present and cooperative THOUGHT PROCESS: Normal thought process present Skin: COMMON NORMALS: no rashes or lesions noted and no wounds GENERAL SKIN EXAM: no rashes or lesions noted Course Vital Signs: Vital signs: Vital Signs Temperature 97.9 F 04/28/25 18:39 Pulse Rate 59 L 04/28/25 18:49 Respiratory Rate 19 H 04/28/25 18:39 Blood Pressure 155/96 04/28/25 18:39 Pulse Oximetry 99 04/28/25 18:49 Oxygen Delivery Me thod Room Air 04/28/25 18:49 MDM - General Adult Medical Decision Making Patient presents for likely syncopal event is known to be bradycardic he was given atropine his heart rate blood pressure has been stable here spoke to hospitalist will admit at this time. Medical Records I reviewed the patient's medical records. Lab Data I reviewed the patient's lab results. 04/28/25 18:47 04/28/25 18:47 Radiology Impressions Chest X-Ray 04/28/25 18:42 IMPRESSION: Bibasilar scarring and atelectasis but no acute findings. Head CT 04/28/25 18:44 IMPRESSION: No acute intracranial abnormality. Laboratory Results WBC 3.46 10^3/uL (3.29-11.43) 04/28/25 18:47 RBC 2.94 10^6/uL (3.85-5.65) L 04/28/25 18:47 Hgb 9.10 g/dL (11.27-16.99) L 04/28/25 18:47 Hct 29.3 % (37-53) L 04/28/25 18:47 MCV 99.7 fl (82-101) 04/28/25 18:47 MCH 31.0 pg (27-33) 04/28/25 18:47 MCHC 31.1 g/dL (30-55) 04/28/25 18:47 RDW 13.0 % (12.1-15.1) 04/28/25 18:47 Plt Count 87 10^3/cmm (157-399) L 04/28/25 18:47 MPV 11.7 fL (7.4-10.4) H 04/28/25 18:47 Neut % (Auto) 53.4 % 04/28/25 18:47 Lymph % (Auto) 32.7 % 04/28/25 18:47 [place] % (Auto) 10.4 % 04/28/25 18:47 Eos % (Auto) 2.9 % 04/28/25 18:47 Baso % (Auto) 0.3 % 04/28/25 18:47 Neut # (Auto) 1.85 10^3/uL (1.8-7.7) 04/28/25 18:47 Lymph # (Auto) 1.1 10^3/uL (0.8-4.8) 04/28/25 18:47 [place] # (Auto) 0.4 10^3/uL (0.2-0.9) 04/28/25 18:47 Eos # (Auto) 0.1 10^3/uL (0.0-0.8) 04/28/25 18:47 Baso # (Auto) 0.0 10^3/uL (0.0-0.1) 04/28/25 18:47 Nucleated RBC % (auto) 0 % 04/28/25 18:47 Nucleated RBCs # 0.0 /100WBC 04/28/25 18:47 PT 14.60 SECONDS (12.1-14.9) 04/28/25 18:47 INR 1.06 (0.8-1.2) 04/28/25 18:47 Sodium 139 mmol/L (136-145) 04/28/25 18:47 Potassium 4.1 mmol/L (3.5-5.1) 04/28/25 18:47 Chloride 106 mmol/L (98-107) 04/28/25 18:47 Carbon Dioxide 19 mmol/L (22-29) L 04/28/25 18:47 Anion Gap 18.1 (5-19) 04/28/25 18:47 BUN 32 mg/dL (8-23) H 04/28/25 18:47 Creatinine 1.8 mg/dL (0.7-1.2) H 04/28/25 18:47 GFR Calculation Not Reportable 04/28/25 18:47 Glucose 85 mg/dL (65-115) 04/28/25 18:47 Calculated Osmolality 294 mOsm/kg (285-295) 04/28/25 18:47 Calcium 8.4 mg/dL (8.5-10.5) L 04/28/25 18:47 Magnesium 2.1 mg/dL (1.7-2.3) 04/28/25 18:47 Total Bilirubin 0.6 mg/dL (0.15-1.2) 04/28/25 18:47 AST 21 U/L (0-40) 04/28/25 18:47 ALT 7 U/L (0-41) 04/28/25 18:47 Alkaline Phosphatase 56 U/L (40-130) 04/28/25 18:47 Troponin T Baseline 40 ng/L (0-15) H 04/28/25 18:47 Total Protein 6.0 g/dL (6.6-8.7) L 04/28/25 18:47 Albumin 3.6 g/dL (3.5-5.2) 04/28/25 18:47 Globulin 2.4 g/dL (1.3-4.6) 04/28/25 18:47 Lipase 22 U/L (13-60) 04/28/25 18:47 All radiology interpretation(s) finalized by discharge EKG Data EKG 1: I personally reviewed and interpreted this EKG as follows: EKG interpretation date: 04/28/25 EKG interpretation time: 18:43 Interpretation: sinus priti hr [address] elevation qrs 90 qtc 454 Computer generated interpretation: Chest X-Ray 04/28/25 18:42 IMPRESSION: Bibasilar scarring and atelectasis but no acute findings. Head CT 04/28/25 18:44 IMPRESSION: No acute intracranial abnormality. Discharge Plan Discharge Condition: Stable Prescriptions: No Action atorvastatin 20 mg tablet 20 mg PO QPM finasteride 5 mg tablet 5 mg PO DAILY tamsulosin 0.4 mg Capsule 0.4 mg PO DAILY 30 Days Qty: 30 3RF aspirin 81 mg Tablet,Delayed Release (Dr/Ec) 81 mg PO QAM ferrous sulfate 27 mg iron Tablet 27 mg PO DAILY citalopram 10 mg tablet 10 mg PO DAILY vitamin E 268 mg (400 unit) Capsule 268 mg PO DAILY cholecalciferol (vitamin D3) [Vitamin D3] 25 mcg (1,000 unit) Capsule 25 mcg PO DAILY Glucosamine Chondroitin 550-30-1 mg Capsule 1 cap PO DAILY vitamin [id number] acid 2,500-400 mcg Tablet,Disintegrating 1 tab PO DAILY memantine 5 mg tablet 5 mg PO BID amlodipine 5 mg tablet 10 mg PO DAILY 30 Days Qty: 60 0RF hydralazine 100 mg tablet 50 mg PO TID 30 Days Qty: 45 0RF losartan 100 mg tablet 50 mg PO DAILY 30 Days Qty: 15 0RF Referrals: Nehal Cormier NP [Primary Care Provider, Family Practice] Print Language: Tamazight Coding Level of Care Code ED Rn Care Transition for Ismaelg Chris
--- NOTE | 2025-04-28 18:44 | CTR_ITS ---
PROCEDURE INFORMATION: Exam: CT Head Without Contrast Exam date and time: 04/28/2025 6:59 PM Age: 89 years old Clinical indication: Altered mental status/memory loss; Confusion or disorientation; Additional info: AMS TECHNIQUE: Imaging protocol: Computed tomography of the head without contrast. Radiation optimization: All CT scans at this facility use at least one of these dose optimization techniques: automated exposure control; mA and/or kV adjustment per patient size (includes targeted exams where dose is matched to clinical indication); or iterative reconstruction. COMPARISON: CT head wo con* [id number] 04/07/2025 3:47 AM RADIATION DOSE METRICS: Total DLP (mGy-cm): 1136.9 FINDINGS: Brain: No acute infarction, hemorrhage, mass, or extra-axial fluid collection is identified. No midline shift. Left parieto-occipital encephalomalacia. Moderate generalized atrophy. 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 Cerebral ventricles: No hydrocephalus. Paranasal sinuses: Mucosal thickening of the paranasal sinuses. No air-fluid levels. Mastoid air cells: Mastoid air cells are grossly clear. Bones: Calvarium appears intact. Soft tissues: Unremarkable. CT/CT head wo con* [id number] IMPRESSION: No acute intracranial abnormality.
--- OUTSIDE RECORDS SUMMARY | 2025-04-28 18:44 | XMS_ITS | Encounter Summary ---
Author Organization [facility] Address [address] [place] [address] Care Team Providers Care Stockfeed Miller Name Role Phone Mike De La Cruz MD Primary Care Provider [phone] Encounter Details Date Type Department Care Team (Late st Contact Info) Description 12/26/2011 Ancillary Orders [facility] [address] [place] [address] Tamiko Paula MD [address] [place] [phone] Hip joint painful on movement Social History Tobacco Use Types Packs/Day Years Used Date Smoking Tobacco: Never Assessed Sex and Gender Information Value Date Recorded Sex Assigned at Not on file Legal 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 no acute changes seen. 2. minimal osteoarthritis Narrative 12/26/2011 2:03 PM MERCHANDISE COMPLAINT ADJUSTER Findings: AP view of the pelvis shows [...] thigh documented in this encounter Care Teams Stockfeed Miller Relationship Specialty Start Date End Date Mike De La Cruz MD [address] [phone] PCP - General Family Practice 11/06/20 documented as of this encounter
--- OUTSIDE RECORDS SUMMARY | 2025-04-28 18:44 | XMS_ITS | Clinical Summary ---
Author Organization [facility] Address [address] [address] Phone Care Team Providers Care Certified Orthotist Name Role Phone Mike De La Cruz MD Primary Care Provider [phone] Allergies No known active allergies Medications atorvastatin [...] Never 11/02/2020 How often do you attend taoism or jewish serv ices? 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
--- OUTSIDE RECORDS SUMMARY | 2025-04-28 18:44 | XMS_ITS | Clinical Summary ---
Author Organization [facility] Address [address] [facility] [address] [place] [address] Phone Care Team Providers Care Trucker Hand Name Role Phone Tamiko Paula MD Primary Care Provider [phone] Allergies No known active allergies Medications SAW [...] Never 11/02/2020 How often do you attend jainism or religion serv ices? 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
--- OUTSIDE RECORDS SUMMARY | 2025-04-28 18:44 | XMS_ITS | Encounter Summary ---
Author Organization [facility] Address [address] [place] [address] Care Team Providers Care Technical Sales Representatives Name Role Phone Mike De La Cruz MD Primary Care Provider [phone] Encounter Details Date Type Department Care Team (Late st Contact Info) Description 09/04/2007 Outpatient Historical HIS RAD MTN VIEW OP Thai Cartagena MD [address] 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
[2025-04-28 18:57] LABS: Hematocrit 29.3 % (37-53); Hemoglobin 9.10 g/dL (11.27-16.99); Mean Corpuscular HGB Conc 31.1 g/dL (30-55); Mean Corpuscular Hemoglobin 31.0 pg (27-33); Mean Corpuscular Volume 99.7 fl (82-101); Nucleated Red Blood Cells % 0 %; Platelet Count 87 10^3/cmm (157-399); Red Blood Count 2.94 10^6/uL (3.85-5.65); White Blood Count 3.46 10^3/uL (3.29-11.43)
[2025-04-28 19:08] LABS: INR 1.06 (0.8-1.2); Prothrombin Time 14.60 SECONDS (12.1-14.9)
[2025-04-28 19:12] LABS: Troponin(5th) Baseline 40 ng/L (0-15)
[2025-04-28 19:13] LABS: Alanine Aminotransferase 7 U/L (0-41); Albumin Level 3.6 g/dL (3.5-5.2); Alkaline Phosphatase 56 U/L (40-130); Blood Urea Nitrogen 32 mg/dL (8-23); Calcium 8.4 mg/dL (8.5-10.5); Carbon Dioxide 19 mmol/L (22-29); Chloride 106 mmol/L (98-107); Globulin 2.4 g/dL (1.3-4.6); Glucose 85 mg/dL (65-115); Lipase 22 U/L (13-60); Osmolality Calculated 294 mOsm/kg (285-295); Sodium 139 mmol/L (136-145); Total Protein 6.0 g/dL (6.6-8.7)
[2025-04-28 19:16] LABS: Anion Gap 18.1 (5-19); Aspartate Amino Transferase 21 U/L (0-40); Potassium 4.1 mmol/L (3.5-5.1)
[2025-04-28 19:45] LABS: Magnesium 2.1 mg/dL (1.7-2.3)
[2025-04-28 20:58] LABS: Troponin 5 2HR 38.72 ng/L (0-15)
[2025-04-28 20:59] LABS: Troponin 5 2HR Delta -1.28 ABS# (0-10)
--- NOTE | 2025-04-28 21:24 | ECG_ITS ---
[facility] Test Date: 2025-04-28 Pat Name: Edmund Villalpando Department: Room: Gender: Male Loans Consultant: : 1935 Requested By: Karuna Curran Order Number: [id number] Reading MD: ISABELLA BREWSTER Measurements Intervals [place] Rate: 48 P: 61 AL: 176 QRS: 39 QRSD: 85 T: 66 QT: 474 QTc: 426 Interpretive Statements SINUS BRADYCARDIA SEPTAL MYOCARDIAL INFARCTION , OF INDETERMINATE AGE [40+ ms Q WAVE IN V1/V2] Compared to ECG 04/28/2025 18:43:31 No significant changes Electronically Signed On 04-28-2025 21:33:43 CDT by ISABELLA BREWSTER [email or web address]
--- NOTE | 2025-04-28 23:51 | PM.HP ---
Providers/Chief Complaint Admitting Physician: Frannie Bravo MD Primary Care Provider: Nehal Cormier NP Chief Complaint: Low HR History of Present Illness Edmund Villalpando is a 89 year old male with past medical history of hypertension, tachybradycardia syndrome, atrial fibrillation, who presents to [facility] due to unresponsive episode. History is obtained by patient's as patient is unable to participate in view of his dementia. His states that patient was at home in his usual state of health, when suddenly he became less responsive, had diaphoresis and started to complain of chest tightness and discomfort. He became pale and started staring into space. EMS was called where he was noted to have a heart rate of about 30. He received atropine via EMS which did improve the heart rate to ~ 50bpm. Rhythm at this time was noted to be sinus bradycardia. Review of chart shows that patient was here recently discharged on April 08, 2025 after having presented from home with a similar episode. He did not need CPR at that time via EMS. There was suspected high degree intermittent AV block for which he did receive an event monitor at the time of discharge. He still has this event monitor in place. Last LVEF was at 60% with mild LVH. Stress test indicated uniform perfusion. Metoprolol was discontinued at the time of discharge. Review of Systems General: Reports: ROS unobtainable due to medical condition Medications/Allergies Home Medications ?Medication ?Instructions ?Recorded ?Confirmed ?Last Taken ?Type atorvastatin 20 mg tablet 20 mg PO QPM 05/09/23 04/15/25 04/06/25 History finasteride 5 mg tablet 5 mg PO DAILY 05/09/23 04/15/25 04/06/25 History aspirin 81 mg tablet,delayed 81 mg PO QAM 05/11/23 04/15/25 04/06/25 History release ferrous sulfate 27 mg iron tablet 27 mg PO DAILY 05/11/23 04/15/25 04/06/25 History tamsulosin 0.4 mg capsule 0.4 mg PO DAILY 30 days #30 caps 05/11/23 04/15/25 04/06/25 Rx cholecalciferol (vitamin D3) 25 25 mcg PO DAILY 10/19/23 04/15/25 04/06/25 History mcg (1,000 unit) capsule (Vitamin D3) citalopram 10 mg tablet 10 mg PO DAILY 10/19/23 04/15/25 04/06/25 History glucosamine sulf dipot 1 cap PO DAILY 10/19/23 04/15/25 04/06/25 History chlr,msm,chond 550 mg-C 30 mg-odessa 1 mg capsule (Glucosamine Chondroitin) vitamin B12 2,500 mcg-folic acid 1 tab PO DAILY 10/19/23 04/15/25 04/06/25 History 400 mcg disintegrating tablet vitamin E 268 mg (400 unit) capsule 268 mg PO DAILY 10/19/23 04/15/25 04/06/25 History memantine 5 mg tablet 5 mg PO BID 04/07/25 04/15/25 04/06/25 History amlodipine 5 mg tablet 10 mg (2 x 5 mg) PO DAILY 30 days 04/08/25 04/15/25 04/06/25 Rx #60 tabs hydralazine 100 mg tablet 50 mg (1/2 x 100 mg) PO TID 30 04/08/25 04/15/25 04/06/25 Rx days #45 tabs losartan 100 mg tablet 50 mg (1/2 x 100 mg) PO DAILY 30 04/08/25 04/15/25 04/06/25 Rx days #15 tabs Allergies Allergy/AdvReac Type Severity Reaction Status Date / Time No Known Allergies Allergy Verified 04/15/25 14:13 PFSH Acute PFSH: Medical History Bradycardia Atrial fibrillation Hypertension Stroke-like symptoms AMS (altered mental status) Dysarthria Acute urinary retention Depression with anxiety CVA (cerebral vascular accident) Hyperlipidemia Dementia BPH (benign prostatic hyperplasia) No significant past medical history Surgical History History of cholecystectomy No significant past surgical history Family History Other Diabetes Social History Smoking and tobacco/nicotine status: former use of tobacco/nicotine Alcohol intake: never Vitals/I&O/Wt Last Vital Signs Temp 97.9 F 04/28/25 18:39 Pulse 55 L 04/28/25 21:30 Resp 17 04/28/25 21:30 BP 149/87 04/28/25 21:30 Pulse Ox 95 04/28/25 21:30 O2 Del Method Room Air 04/28/25 21:30 Physical Exam Narrative: General: No acute distress, AO x3 HEENT: PERRLA, pupils bilaterally equal and reactive, pallors not present Chest: Normal vesicular breath sounds, no added sounds, equal good air entry bilaterally CVS: S1-S2 regular, no murmurs, no tachycardia, no gallops, no rubs Abdomen: Soft, nontender, no organomegaly, bowel sounds present Neuro: No focal deficits, no facial deformity, AO x3, power 5/5 in all limbs Data 04/29/25 00:35 04/29/25 00:35 Other Labs: Radiology Impressions Chest X-Ray 04/28/25 18:42 IMPRESSION: Bibasilar scarring and atelectasis but no acute findings. Head CT 04/28/25 18:44 IMPRESSION: No acute intracranial abnormality. Laboratory Results WBC 3.34 10^3/uL (3.29-11.43) 04/29/25 00:35 RBC 3.11 10^6/uL (3.85-5.65) L 04/29/25 00:35 Hgb 9.70 g/dL (11.27-16.99) L 04/29/25 00:35 Hct 31.0 % (37-53) L 04/29/25 00:35 MCV 99.7 fl (82-101) 04/29/25 00:35 MCH 31.2 pg (27-33) 04/29/25 00:35 MCHC 31.3 g/dL (30-55) 04/29/25 00:35 RDW 12.8 % (12.1-15.1) 04/29/25 00:35 Plt Count 88 10^3/cmm (157-399) L 04/29/25 00:35 MPV 11.7 fL (7.4-10.4) H 04/29/25 00:35 Neut % (Auto) 56.0 % 04/29/25 00:35 Lymph % (Auto) 31.1 % 04/29/25 00:35 [place] % (Auto) 9.3 % 04/29/25 00:35 Eos % (Auto) 2.7 % 04/29/25 00:35 Baso % (Auto) 0.3 % 04/29/25 00:35 Neut # (Auto) 1.87 10^3/uL (1.8-7.7) 04/29/25 00:35 Lymph # (Auto) 1.0 10^3/uL (0.8-4.8) 04/29/25 00:35 [place] # (Auto) 0.3 10^3/uL (0.2-0.9) 04/29/25 00:35 Eos # (Auto) 0.1 10^3/uL (0.0-0.8) 04/29/25 00:35 Baso # (Auto) 0.0 10^3/uL (0.0-0.1) 04/29/25 00:35 Nucleated RBC % (auto) 0 % 04/29/25 00:35 Nucleated RBCs # 0.0 /100WBC 04/29/25 00:35 PT 14.60 SECONDS (12.1-14.9) 04/28/25 18:47 INR 1.06 (0.8-1.2) 04/28/25 18:47 Sodium 141 mmol/L (136-145) 04/29/25 00:35 Potassium 4.3 mmol/L (3.5-5.1) 04/29/25 00:35 Chloride 108 mmol/L (98-107) H 04/29/25 00:35 Carbon Dioxide 22 mmol/L (22-29) 04/29/25 00:35 Anion Gap 15.3 (5-19) 04/29/25 00:35 BUN 28 mg/dL (8-23) H 04/29/25 00:35 Creatinine 1.8 mg/dL (0.7-1.2) H 04/29/25 00:35 GFR Calculation Not Reportable 04/29/25 00:35 Glucose 87 mg/dL (65-115) 04/29/25 00:35 Calculated Osmolality 297 mOsm/kg (285-295) H 04/29/25 00:35 Calcium 8.7 mg/dL (8.5-10.5) 04/29/25 00:35 Magnesium 2.1 mg/dL (1.7-2.3) 04/28/25 18:47 Total Bilirubin 0.7 mg/dL (0.15-1.2) 04/29/25 00:35 AST 19 U/L (0-40) 04/29/25 00:35 ALT 7 U/L (0-41) 04/29/25 00:35 Alkaline Phosphatase 61 U/L (40-130) 04/29/25 00:35 Troponin T Baseline 40 ng/L (0-15) H 04/28/25 18:47 Troponin T 120 Minute 38.72 ng/L (0-15) H 04/28/25 20:28 Delta Troponin T -1.28 ABS# (0-10) L 04/28/25 20:28 Troponin T Hi Sens 6Hr 39.71 ng/L (0-15) H 04/29/25 00:35 Troponin T Hi Sens 6Hr Delta -0.29 ng/L (0-12) L 04/29/25 00:35 Total Protein 5.8 g/dL (6.6-8.7) L 04/29/25 00:35 Albumin 3.7 g/dL (3.5-5.2) 04/29/25 00:35 Globulin 2.1 g/dL (1.3-4.6) 04/29/25 00:35 Lipase 22 U/L (13-60) 04/28/25 18:47 A&P Assessment and plan 1. Bradycardia: 2. Tachy-priti syndrome: 3. Syncope: Plan: 89-year-old man with past medical history as outlined above currently admitted to the hospital with what appears to be a syncopal event at home. Patient was noted to have a heart rate down to the 30s via EMS for which she received atropine on the way. At the time of this assessment his heart rate is at 55 bpm, sinus bradycardia on twelve-lead EKG. He denies any chest pain at this time. Will admit patient to CSU with close telemetry monitoring In case of worsening bradycardia, plan to repeat atropine and also start dopamine infusion. May need temporary pacing. Will attempt to obtain the event monitor results to determine rhythm at the time of syncope. If patient does have underlying high degree AV block, may need pacemaker implantation. He has been off metoprolol since his discharge in late March. 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
[2025-04-29 00:36] VITALS: BP 176/81; PULSE 52; RESP 14; O2SAT 98
[2025-04-29 00:45] LABS: Hematocrit 31.0 % (37-53); Hemoglobin 9.70 g/dL (11.27-16.99); Mean Corpuscular HGB Conc 31.3 g/dL (30-55); Mean Corpuscular Hemoglobin 31.2 pg (27-33); Mean Corpuscular Volume 99.7 fl (82-101); Nucleated Red Blood Cells % 0 %; Platelet Count 88 10^3/cmm (157-399); Red Blood Count 3.11 10^6/uL (3.85-5.65); White Blood Count 3.34 10^3/uL (3.29-11.43)
[2025-04-29 01:00] VITALS: BP 167/69; PULSE 50; RESP 17; TEMP 36.7; O2SAT 94
[2025-04-29 01:03] LABS: Troponin 5 6HR 39.71 ng/L (0-15)
[2025-04-29 01:06] LABS: Alanine Aminotransferase 7 U/L (0-41); Albumin Level 3.7 g/dL (3.5-5.2); Alkaline Phosphatase 61 U/L (40-130); Anion Gap 15.3 (5-19); Aspartate Amino Transferase 19 U/L (0-40); Blood Urea Nitrogen 28 mg/dL (8-23); Calcium 8.7 mg/dL (8.5-10.5); Carbon Dioxide 22 mmol/L (22-29); Chloride 108 mmol/L (98-107); Globulin 2.1 g/dL (1.3-4.6); Glucose 87 mg/dL (65-115); Osmolality Calculated 297 mOsm/kg (285-295); Potassium 4.3 mmol/L (3.5-5.1); Sodium 141 mmol/L (136-145); Total Protein 5.8 g/dL (6.6-8.7)
[2025-04-29 01:08] LABS: Troponin 5 6HR Delta -0.29 ng/L (0-12)
[2025-04-29 04:00] VITALS: BP 153/67; PULSE 52; RESP 16; TEMP 36.6; O2SAT 94
[2025-04-29] MEDS: heparin 5,000 unit/mL INJ 1 mL 5000 UNIT SUBCUT ×2 (04:05→14:17)
[2025-04-29 08:00] VITALS: BP 120/58; PULSE 70; RESP 15; TEMP 36.7; O2SAT 96
--- NOTE | 2025-04-29 08:37 | ECG_ITS ---
[facility] Test Date: 2025-04-29 Pat Name: Edmund Villalpando Department: Room: 108 Gender: Male Director Marketing: : 1935 Requested By: Karuna Curran Order Number: [id number] Saritha MD: Kyle Sheldon M.D. Measurements Intervals [place] Rate: 51 P: 37 [place]: 134 QRS: 17 QRSD: 90 T: 64 QT: 467 QTc: 432 Interpretive Statements SINUS BRADYCARDIA Compared to ECG 04/28/2025 21:24:16 Heavy baseline artifacts; Need to repeat the study. Electronically Signed On 04-29-2025 20:27:07 CDT by Kyle Sheldon M.D. [id number]
--- NOTE | 2025-04-29 12:12 | P.CONIM_ITS ---
<Statement entered by Mynor Ying M.D - 05/03/25 13:37> Patient was evaluated and cared for in conjunction with an advanced practice practitioner.? I personally examined the patient and reviewed the chart and all pertinent data including imaging, telemetry, and laboratory results.? I discussed the patient in detail with the advanced practice practitioner.? Please see? their note for complete H&P, testing results and agreed upon plan of care for the patient. ? Patient has sick sinus syndrome. Presented with bradycardia. Needs transfer for permanent pacemaker placement. GENERAL: Patient is alert HEART: Regular S1 and S2 LUNGS: Clear to auscultate bilaterally. CENTRAL NERVOUS SYSTEM: Grossly nonfocal. EXTREMITIES: Lower extremities with out edema bilaterally. Providers/Reason For Consult 2 Consulting Physician/Specialty*: Dr Ying, cardiology Reason for Consult*: symptomatic bradycardia Requesting Physician: Dr Gu Attending Physician: Ander Gu MD Primary Care Provider: Nehal Cormier NP History of Present Illness History of Present Illness Edmund Villalpando is a 89 year old male with past medical history of atrial fibrillation, dementia, CKD. He presents emergency room via EMS yesterday due to a episode of decreased responsiveness at home. Per ER documentation EMS found heart rate of 30 bpm. He was admitted to the hospital 04/07/2025 with a very similar episode, at that time metoprolol was discontinued and has not been restarted since then. He has been wearing an event monitor which I have reviewed today. For the last 24 hours the minimum heart rate has been 41 bpm at 1715, maximum 102 bpm at 0635. He has had intermittent atrial fibrillation with RVR. He is not anticoagulated due to frequent falls. He had a stress test during the last admission which was negative for ischemia, echocardiogram 04/07/2025 revealed LVEF 60%, mild LVH, grade 3 diastolic dysfunction, mild aortic regurgitation, mild pulmonic regurgitation. Review of Systems 2 Narrative: ROS negative, however patient has dementia. Const: Denies: fever(s), chills, change in weight, fatigue or diaphoresis Eyes: Denies: change in vision ENMT: Denies: epistaxis Card: Denies: chest pain, palpitations, irregular heart rhythm, edema, syncope, pre-syncope, dyspnea on exertion, orthopnea or leg pain with exertion Resp: Denies: dyspnea, productive cough or wheezing GI: Denies: nausea, vomiting, hematemesis, hematochezia or melena : Denies: hematuria Musc: Denies: extremity swelling Piyush/Lymph: Denies: easy bruising or easy bleeding Medications/Allergies Home Medications ?Medication ?Instructions ?Recorded ?Confirmed ?Last Taken ?Type atorvastatin 20 mg tablet 20 mg PO QPM 05/09/2304/06/25 History finasteride 5 mg tablet 5 mg PO DAILY 05/09/2304/1504/06/25 History aspirin 81 mg tablet,delayed 81 mg PO QAM 05/11/2304/06/25 History release ferrous sulfate 27 mg iron tablet 27 mg PO DAILY 05/1104/15/25 04/06/25 History tamsulosin 0.4 mg capsule 0.4 mg PO DAILY 30 days #30 caps 05/11/23 04/15/25 04/06/25 Rx cholecalciferol (vitamin D3) 25 25 mcg PO DAILY 04/15/25 04/06/25 History mcg (1,000 unit) capsule (Vitamin D3) citalopram 10 mg tablet 10 mg PO DAILY 10/19/2303/2304/06/25 History glucosamine sulf dipot 1 cap PO DAILY 10/19/2303/2304/06/25 History chlr,msm,chond 550 mg-C 30 mg-odessa 1 mg capsule (Glucosamine Chondroitin) vitamin B12 2,500 mcg-folic acid 1 tab PO DAILY 10/1904/15/25 04/06/25 History 400 mcg disintegrating tablet vitamin E 268 mg (400 unit) capsule 268 mg PO DAILY 04/15/25 04/06/25 History memantine 5 mg tablet 5 mg PO BID 04/07/25 04/06/25 History amlodipine 5 mg tablet 10 mg (2 x 5 mg) PO DAILY 30 days 04/08/25 04/15/25 04/06/25 Rx #60 tabs hydralazine 100 mg tablet 50 mg (1/2 x 100 mg) PO TID 30 0604/15/25 04/06/25 Rx days #45 tabs losartan 100 mg tablet 50 mg (1/2 x 100 mg) PO STEPHANIE Y 30 04/08/25 04/15/25 04/06/25 Rx days #15 tabs Allergies Allergy/AdvReac Type Severity Reaction Status Date / Time No Known Allergies Allergy Verified 04/15/25 14:13 Current Medications Generic Name Dose Route Start Last Admin Trade Name Albin PRN Reason Stop Dose Admin Amlodipine Besylate 10 mg 04/29/25 09:00 04/29/25 08:19 Amlodipine 5 Mg Tablet PO 10 mg DAILY MACI Administration Aspirin 81 mg 04/29/25 06:00 04/29/25 06:25 Aspirin 81 Mg Ec Tablet PO 81 mg QAM MACI Administration Citalopram Hydrobromide 10 mg 04/29/25 09:00 04/29/25 08:19 Citalopram 20 Mg Tablet PO 10 mg DAILY MACI Administration Finasteride 5 mg 04/29/25 09:00 04/29/25 08:19 Finasteride 5 Mg Tablet PO 5 mg DAILY MACI Administration Heparin Sodium (Porcine) 5,000 unit 04/29/25 03:15 04/29/25 04:05 Heparin 5,000 Unit/Ml Inj 1 Ml SUBCUT 5,000 unit Q12H MACI Administration Memantine 5 mg 04/29/25 09:00 04/29/25 08:19 Memantine 5 Mg Tablet PO 5 mg BID MACI Administration Pantoprazole Sodium 40 mg 04/29/25 09:00 04/29/25 08:[address] 40 Mg Tablet PO 40 mg DAILY MACI Administration Tamsulosin HCl 0.4 mg 04/29/25 09:00 04/29/25 08:19 Tamsulosin 0.4 Mg Capsule PO 0.4 mg DAILY MACI Administration PFSH Acute 2 PFSH: Medical History Bradycardia Atrial fibrillation Hypertension Stroke-like symptoms AMS (altered mental status) Dysarthria Acute urinary retention Depression with anxiety CVA (cerebral vascular accident) Hyperlipidemia Dementia BPH (benign prostatic hyperplasia) No significant past medical history Surgical History History of cholecystectomy No significant past surgical history Family History Other Diabetes Social History Smoking and tobacco/nicotine status: former use of tobacco/nicotine Alcohol intake: never Vitals/I&O/Wt Last Vital Signs Temp 98.0 F 04/29/25 08:00 Pulse 70 04/29/25 08:00 Resp 15 04/29/25 08:00 BP 120/58 04/29/25 08:00 Pulse Ox 96 04/29/25 08:00 O2 Del Method Room Air 04/29/25 04:00 Weight last 48 hrs Weight 157 lb 3.2 oz Weight 157 lb 9.6 oz Physical Exam 2 Const: COMMON NORMALS: no acute distress and patient oriented x3 GENERAL APPEARANCE: cooperative and comfortable ORIENTATION/CONSCIOUSNESS: Yes awake, Yes oriented to person, Yes oriented to place and Yes oriented to time Chest: COMMONS NORMALS: normal inspection of the chest and normal palpation of entire chest wall CHEST: Yes Symmetrical chest wall rise Resp: COMMON NORMALS: normal respiratory effort, No retractions, No use of accessory muscles and clear to auscultation bilaterally EFFORT & INSPECTION: Yes symmetric chest movement AUSCULTATION: clear to auscultation bilaterally Cardio: COMMON NORMALS: regular rhythm, S1 normal heart sound present, S2 normal heart sound present, No gallops present (Cardio), No clicks present (Cardio), No murmurs present (Cardio) and No rub (Cardio) RATE: bradycardic RHYTHM: regular rhythm HEART SOUNDS: S1 normal heart sound present and S2 normal heart sound present PERIPHERAL PULSES: radial pulses present Extremity: COMMON NORMALS: no pedal edema Neuro: COMMON NORMALS: patient oriented x3 and moves all extremities S ENSORIUM/ORIENTATION: Yes oriented to person, Yes oriented to place and Yes oriented to time Data 04/29/25 00:35 04/29/25 00:35 A&P Assessment and plan 1. Tachy-priti syndrome: 2. Atrial fibrillation: 3. Syncope: 4. Dementia: Plan: Given this is the second admission for an episode of decreased level of consciousness with bradycardia, patient is found to have sick sinus syndrome necessitating permanent pacemaker implant. Will discuss with patient's whenever she arrives to determine if this would be a benefit for the patient. If patient and his are in agreement, will need transfer to outside facility for pacemaker placement since we do not provide that service here. PDMP PDMP Reviewed: Not Reviewed Coding Level of Care Code Acute Code for Chg Fwd Diagnoses Tachy-priti syndrome I49.5 Atrial fibrillation I48.91 Syncope R55 Dementia F03.90
[2025-04-29 16:27] VITALS: BP 142/69; RESP 18
--- NOTE | 2025-04-29 16:36 | P.TS_ITS ---
Transfer Summary Providers Date of Admission: 04/28/25 19:54 Date of Discharge/Transfer: 04/29/25 Attending Provider at Admission: Frannie Bravo MD Attending Provider at Transfer: Ander Gu MD Consults: Cardiology KAYKAY Null Primary Care Provider: Nehal Cormier NP Transfer Plans: Anticipated date of transfer: 04/29/25 . Diagnoses at Discharge Discharge Diagnosis 1. Syncope: Details from hospital stay: Patient with second episode of lethargy and unresponsiveness called to ambulance as a cardiac arrest. Had transient chest compression but then found to have heart rate of 30 and given atropine. Brought into the hospital and more stable but heart rate in the 40s to 50s occasionally is 70 2. Tachy-priti syndrome: Details from hospital stay: As above previously admitted 04/07/2025 but at that time was on metoprolol. He was observed for similar problem with syncope and metoprolol was stopped. He has had Holter monitoring showing heart rate down to 41 associate with his syncope 3. Paroxysmal atrial fibrillation: Details from hospital stay: History of atrial fibrillation 4. Dementia: Details from hospital stay: Patient is cooperative and desires pacemaker placement. This was discussed with him by myself as well as his [place] Reason for Visit Reason for Visit Low HR Brief History: Edmund Villalpando is a 89 year old male with past medical history of hypertension, tachybradycardia syndrome, atrial fibrillation, who presents to [facility] due to unresponsive episode. History is obtained by patient's as patient is unable to participate in view of his dementia. His states that patient was at home in his usual state of health, when suddenly he became less responsive, had diaphoresis and started to complain of chest tightness and discomfort. He became pale and started staring into space. EMS was called where he was noted to have a heart rate of about 30. He received atropine via EMS which did improve the heart rate to ~ 50bpm. Rhythm at this time was noted to be sinus bradycardia. Review of chart shows that patient was here recently discharged on April 08, 2025 after having presented from home with a similar episode. He did not need CPR at that time via EMS. There was suspected high degree intermittent AV block for which he did receive an event monitor at the time of discharge. He still has this event monitor in place. Last LVEF was at 60% with mild LVH. Stress test indicated uniform perfusion. Metoprolol was discontinued at the time of discharge. Hospital Course Hospital Course Patient responded to atropine in the field for heart rate of 30. Here he has heart rates 45 for to 55 but occasionally as high as 70 in sinus rhythm. His Holter monitor interrogation shows heart rate was 41 in the last 24 hours Patient is concerned about going home and having further syncope and does not wish to suffer injury or pass away from this tachybradycardia syndrome. This was discussed with he and his due to patient's history of dementia both are in favor of transfer for pacemaker. I consulted cardiology team and they recommend pacemaker but none of the seed packer perform pacemakers placement here. Physical Exam Narrative: General well-developed well-nourished male in no acute cardiopulmonary stress Patient is alert and orient to person place but not date CV regular rate and rhythm Lungs clear to auscultation bilaterally Skin warm dry and well-perfused TS Data Studies Completed and Pending Pending at discharge Category Date Time Status Urinalysis Stat Lab 04/28/25 19:15 Uncollected Completed Studies During Hospitalization Category Date Time Status CT head wo con* [id number] Stat Cat Scan 04/28/25 18:44 Completed XR chest 1V portable [id number] Stat Exams 04/28/25 18:42 Completed Laboratory Last Values WBC 3.34 10^3/uL (3.29-11.43) 04/29/25 00:35 RBC 3.11 10^6/uL (3.85-5.65) L 04/29/25 00:35 Hgb 9.70 g/dL (11.27-16.99) L 04/29/25 00:35 Hct 31.0 % (37-53) L 04/29/25 00:35 MCV 99.7 fl (82-101) 04/29/25 00:35 MCH 31.2 pg (27-33) 04/29/25 00:35 MCHC 31.3 g/dL (30-55) 04/29/25 00:35 RDW 12.8 % (12.1-15.1) 04/29/25 00:35 Plt Count 88 10^3/cmm (157-399) L 04/29/25 00:35 MPV 11.7 fL (7.4-10.4) H 04/29/25 00:35 Neut % (Auto) 56.0 % 04/29/25 00:35 Lymph % (Auto) 31.1 % 04/29/25 00:35 [place] % (Auto) 9.3 % 04/29/25 00:35 Eos % (Auto) 2.7 % 04/29/25 00:35 Baso % (Auto) 0.3 % 04/29/25 00:35 Neut # (Auto) 1.87 10^3/uL (1.8-7.7) 04/29/25 00:35 Lymph # (Auto) 1.0 10^3/uL (0.8-4.8) 04/29/25 00:35 [place] # (Auto) 0.3 10^3/uL (0.2-0.9) 04/29/25 00:35 Eos # (Auto) 0.1 10^3/uL (0.0-0.8) 04/29/25 00:35 Baso # (Auto) 0.0 10^3/uL (0.0-0.1) 04/29/25 00:35 Nucleated RBC % (auto) 0 % 04/29/25 00:35 Nucleated RBCs # 0.0 /100WBC 04/29/25 00:35 PT 14.60 SECONDS (12.1-14.9) 04/28/25 18:47 INR 1.06 (0.8-1.2) 04/28/25 18:47 Sodium 141 mmol/L (136-145) 04/29/25 00:35 Potassium 4.3 mmol/L (3.5-5.1) 04/29/25 00:35 Chloride 108 mmol/L (98-107) H 04/29/25 00:35 Carbon Dioxide 22 mmol/L (22-29) 04/29/25 00:35 Anion Gap 15.3 (5-19) 04/29/25 00:35 BUN 28 mg/dL (8-23) H 04/29/25 00:35 Creatinine 1.8 mg/dL (0.7-1.2) H 04/29/25 00:35 GFR Calculation Not Reportable 04/29/25 00:35 Glucose 87 mg/dL (65-115) 04/29/25 00:35 Calculated Osmolality 297 mOsm/kg (285-295) H 04/29/25 00:35 Calcium 8.7 mg/dL (8.5-10.5) 04/29/25 00:35 Magnesium 2.1 mg/dL (1.7-2.3) 04/28/25 18:47 Total Bilirubin 0.7 mg/dL (0.15-1.2) 04/29/25 00:35 AST 19 U/L (0-40) 04/29/25 00:35 ALT 7 U/L (0-41) 04/29/25 00:35 Alkaline Phosphatase 61 U/L (40-130) 04/29/25 00:35 Troponin T Baseline 40 ng/L (0-15) H 04/28/25 18:47 Troponin T 120 Minute 38.72 ng/L (0-15) H 04/28/25 20:28 Delta Troponin T -1.28 ABS# (0-10) L 04/28/25 20:28 Troponin T Hi Sens 6Hr 39.71 ng/L (0-15) H 04/29/25 00:35 Troponin T Hi Sens 6Hr Delta -0.29 ng/L (0-12) L 04/29/25 00:35 Total Protein 5.8 g/dL (6.6-8.7) L 04/29/25 00:35 Albumin 3.7 g/dL (3.5-5.2) 04/29/25 00:35 Globulin 2.1 g/dL (1.3-4.6) 04/29/25 00:35 Lipase 22 U/L (13-60) 04/28/25 18:47 Radiology Impressions Chest X-Ray 04/28/25 18:42 IMPRESSION: Bibasilar scarring and atelectasis but no acute findings. Head CT 04/28/25 18:44 IMPRESSION: No acute intracranial abnormality. Recent Clincial Data Last Vital Signs Temp 98.0 F 04/29/25 08:00 Pulse 70 04/29/25 08:00 Resp 18 04/29/25 16:27 BP 142/69 04/29/25 16:27 Pulse Ox 96 04/29/25 08:00 O2 Del Method Room Air 04/29/25 04:00 Vital Signs Temp Pulse Resp BP Pulse Ox 04/29/25 16:27 18 142/69 04/29/25 08:00 98.0 F 70 15 120/58 04/29/25 08:00 98.0 F 70 15 120/58 96 Intake & Output/Weight 04/27/25 04/28/25 04/29/25 04/30/25 06:59 06:59 06:59 06:59 Intake Total 360 / 360 Balance 360 / 360 Weight 71.305 kg Vitals Last Vital Signs Temp 98.0 F 04/29/25 08:00 Pulse 70 04/29/25 08:00 Resp 18 04/29/25 16:27 BP 142/69 04/29/25 16:27 Pulse Ox 96 04/29/25 08:00 O2 Del Method Room Air 04/29/25 04:00 TS Medications Medications Acetaminophen (Acetaminophen 325 Mg Tablet) 650 mg PO Q6H PRN PRN Reason: Mild/Mod Pain Or Temp >/= 101 Amlodipine Besylate (Amlodipine 5 Mg Tablet) 10 mg PO DAILY [facility] Last Admin: 04/29/25 08:19 Dose: 10 mg Aspirin (Aspirin 81 Mg Ec Tablet) 81 mg PO QAM [facility] Last Admin: 04/29/25 06:25 Dose: 81 mg Atorvastatin Calcium (Atorvastatin 10 Mg Tablet) 20 mg PO QPM [facility] Atropine Sulfate (Atropine 0.1 Mg/Ml Syr 10 Ml) 0.5 mg IVP PRN PRN PRN Reason: HR less than 35 Citalopram Hydrobromide (Citalopram 20 Mg Tablet) 10 mg PO DAILY [facility] Last Admin: 04/29/25 08:19 Dose: 10 mg Finasteride (Finasteride 5 Mg Tablet) 5 mg PO DAILY [facility] Last Admin: 04/29/25 08:19 Dose: 5 mg Heparin Sodium (Porcine) (Heparin 5,000 Unit/Ml Inj 1 Ml) 5,000 unit SUBCUT Q12H [facility] Last Admin: 04/29/25 14:17 Dose: 5,000 unit Memantine (Memantine 5 Mg Tablet) 5 mg PO BID [facility] Last Admin: 04/29/25 08:19 Dose: 5 mg Morphine Sulfate (Morphine 4 Mg/Ml Sdv 1 Ml) 2 mg IVP Q4H PRN PRN Reason: SEVERE PAIN Ondansetron HCl (Ondansetron 2 Mg/Ml Sdv 2 Ml) 4 mg IVP Q8H PRN PRN Reason: vomiting, or N/V if npo Pantoprazole Sodium (Pantoprazole Dr 40 Mg Tablet) 40 mg PO DAILY [facility] Last Admin: 04/29/25 08:19 Dose: 40 mg Tamsulosin HCl (Tamsulosin 0.4 Mg Capsule) 0.4 mg PO DAILY [facility] Last Admin: 04/29/25 08:19 Dose: 0.4 mg Allergies No Known Allergies Allergy (Verified 04/15/25 14:13) Home Medications atorvastatin 20 mg tablet 20 mg PO QPM 05/09/23 [History Confirmed 04/29/25] finasteride 5 mg tablet 5 mg PO DAILY 05/09/23 [History Confirmed 04/29/25] aspirin 81 mg tablet,delayed release 81 mg PO QAM 05/11/23 [History Confirmed 04/29/25] ferrous sulfate 27 mg iron tablet 27 mg PO DAILY 05/11/23 [History Confirmed 04/29/25] tamsulosin 0.4 mg capsule 0.4 mg PO DAILY 30 days #30 caps 05/11/23 [Rx Confirmed 04/29/25] cholecalciferol (vitamin D3) 25 mcg (1,000 unit) capsule (Vitamin D3) 25 mcg PO DAILY 10/19/23 [History Confirmed 04/29/25] citalopram 10 mg tablet 10 mg PO DAILY 10/19/23 [History Confirmed 04/29/25] glucosamine sulf dipot chlr,msm,chond 550 mg-C 30 mg-odessa 1 mg capsule (Glucosamine Chondroitin) 1 cap PO DAILY 10/19/23 [History Confirmed 04/29/25] vitamin B12 2,500 mcg-folic acid 400 mcg disintegrating tablet 1 tab PO DAILY 10/19/23 [History Confirmed 04/29/25] vitamin E 268 mg (400 unit) capsule 268 mg PO DAILY 10/19/23 [History Confirmed 04/29/25] memantine 5 mg tablet 5 mg PO BID 04/07/25 [History Confirmed 04/29/25] amlodipine 5 mg tablet 10 mg (2 x 5 mg) PO DAILY 30 days #60 tabs 04/08/25 [Rx Confirmed 04/29/25] hydralazine 100 mg tablet 50 mg (1/2 x 100 mg) PO TID 30 days #45 tabs 04/08/25 [Rx Confirmed 04/29/25] losartan 100 mg tablet 50 mg (1/2 x 100 mg) PO DAILY 30 days #15 tabs 04/08/25 [Rx Confirmed 04/29/25] Discharge Plan Discharge Patient Disposition: Home Condition: Stable Prescriptions: No Action atorvastatin 20 mg tablet 20 mg PO QPM finasteride 5 mg tablet 5 mg PO DAILY tamsulosin 0.4 mg Capsule 0.4 mg PO DAILY 30 Days Qty: 30 3RF aspirin 81 mg Tablet,Delayed Release (Dr/Ec) 81 mg PO QAM ferrous sulfate 27 mg iron Tablet 27 mg PO DAILY citalopram 10 mg tablet 10 mg PO DAILY vitamin E 268 mg (400 unit) Capsule 268 mg PO DAILY cholecalciferol (vitamin D3) [Vitamin D3] 25 mcg (1,000 unit) Capsule 25 mcg PO DAILY Glucosamine Chondroitin 550-30-1 mg Capsule 1 cap PO DAILY vitamin R86-onged acid 2,500-400 mcg Tablet,Disintegrating 1 tab PO DAILY memantine 5 mg tablet 5 mg PO BID amlodipine 5 mg tablet 10 mg PO DAILY 30 Days Qty: 60 0RF hydralazine 100 mg tablet 50 mg PO TID 30 Days Qty: 45 0RF losartan 100 mg tablet 50 mg PO DAILY 30 Days Qty: 15 0RF Discharge Order = DC NOW: Discharge Order (Routine); Ordered 04/29/25 Ordered By: Andre Gu Transfer Out of Facility (Order); Ordered 04/29/25 Ordered By: Ander Gu Referrals: Nehal Cormier NP [Primary Care Provider, [facility]] Discharge Diet: Cardiac Patient Instructions: Opioid Safety, Patient Portal & David Instructions Transfer Attestations Time Spent in Transfer Care: greater than 30 min Quality Metrics Clinical Quality Measures [ No reported AMI, CVA or VTE this stay] Coding Level of Care Code 55424 Diagnoses Syncope R55 Tachy-priti syndrome I49.5 Paroxysmal atrial fibrillation I48.0 Atrial fibrillation type: paroxysmal Dementia F03.90 Time Spent (min) 60
[2025-04-29] MEDS: ATORVASTATIN 10 MG TABLET 20 MG PO (17:34)
== END 2025-04-29 19:45 | disposition short-term general hospital (02) | DRG 310 ==
LOC: ER 20:31 → ER IP 23:24 → ICU 23:25 → ER IP 23:31 → CSU 04-29
PROVIDERS: Admitting Provider Student in an Organized Health Care Education/Training Program; Emergency Provider Emergency Medicine; PCP Nurse Practitioner Family; Visit Provider Internal Medicine
DX: I49.5 Sick sinus syndrome (principal); R55 Syncope and collapse; I48.0 Paroxysmal atrial fibrillation; F03.90 Unspecified dementia, unspecified severity, without behavioral disturbance, psychotic disturbance, mood disturbance, and anxiety; I12.9 Hypertensive chronic kidney disease with stage 1 through stage 4 chronic kidney disease, or unspecified chronic kidney disease; N18.9 Chronic kidney disease, unspecified; E78.5 Hyperlipidemia, unspecified; N40.0 Benign prostatic hyperplasia without lower urinary tract symptoms; I35.1 Nonrheumatic aortic (valve) insufficiency; I37.1 Nonrheumatic pulmonary valve insufficiency; Z79.82 Long term (current) use of aspirin; Z86.73 Personal history of transient ischemic attack (TIA), and cerebral infarction without residual deficits
CPT/HCPCS: 36415; 70450; 71045; 80053; 83690; 83735; 84484; 85025; 85610; 93005; 96372; 99285; J1644; J9999